=== PATIENT | female | born 1970 | race Two or more races ===

== ENCOUNTER → 2020-07-03 13:52 | Outpatient (BNVA) | payer MEDICAID, SELFPAY | PROVIDERS: PCP Internal Medicine Medical Oncology; Visit Provider Obstetrics & Gynecology ==

== ENCOUNTER 2020-09-30 12:10 | Emergency (ER) | payer OTHER, MEDICAID, SELFPAY ==
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
[2020-09-30 12:27] VITALS: BP 198/68; PULSE 87; RESP 18; TEMP 36.3; O2SAT 99; BMI 31.4
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
[2020-09-30] MEDS: Acetaminophen 325 MG TABLET 975 MG PO (14:15)
[2020-09-30] MEDS: Fluorescein Sodium STRIP 1 STRIP EYE-RIGHT (14:16)
[2020-09-30] MEDS: Tetracaine HCl/PF 0.5% Oph Sol 4 ML DROPS 1 DROP EYE-RIGHT (14:16)
[2020-09-30 14:57] VITALS: BP 107/56; PULSE 74; RESP 16; TEMP 36.4; O2SAT 100
== END 2020-09-30 15:44 | disposition home or self-care (01) ==
PROVIDERS: Emergency Provider Emergency Medicine; PCP Internal Medicine Medical Oncology
DX: S09.90XA Unspecified injury of head, initial encounter (principal); S16.1XXA Strain of muscle, fascia and tendon at neck level, initial encounter; S05.02XA Injury of conjunctiva and corneal abrasion without foreign body, left eye, initial encounter; V43.52XA Car driver injured in collision with other type car in traffic accident, initial encounter; F17.200 Nicotine dependence, unspecified, uncomplicated; Y93.89 Activity, other specified; Y92.414 Local residential or business street as the place of occurrence of the external cause; Y99.9 Unspecified external cause status
CPT/HCPCS: 70450; 72125; 73030; 99284

== ENCOUNTER 2020-12-15 15:06 | Outpatient (REF) | payer MEDICAID, SELFPAY ==
[2020-12-15 15:59] LABS: MANUAL DIFF FLAG NO
[2020-12-15 16:07] LABS: Basophils Percent Auto 0.5 % (0-2); Eosinophils Absolute Auto 0.3 X10*3/uL (0.0-0.4); Eosinophils Percent Auto 4.7 % (0-4); Hematocrit 35.4 % (37-47); Hemoglobin 11.5 g/dl (12.0-16.0); Imm Gran Abs Auto 0.07 X10*3/uL (0.00-0.03); Imm Gran Pct Auto 1.3 % (0.0-0.4); Lymphocytes Absolute Auto 2.2 X10*3/uL (1.2-4.9); Lymphocytes Percent Auto 40.4 % (20-40); Mean Corpuscular HGB Conc 32.5 g/dl (31.0-35.0); Mean Corpuscular Hemoglobin 32.7 pg (27.0-33.0); Mean Corpuscular Volume 100.6 fL (80-98); Mean Platelet Volume 10.4 fL (9.4-12.3); Monocytes Absolute Auto 0.4 X10*3/uL (0.1-1.2); Monocytes Percent Auto 7.6 % (2-11); Neutrophils Absolute Auto 2.5 X10*3/uL (2.0-8.3); Neutrophils Percent Auto 45.5 % (45-73); Platelet Count 190 X10*3/uL (160-400); Red Blood Count 3.52 X10*6/uL (4.20-5.50); Red Cell Distribution Width 14.1 % (11.0-16.0); White Blood Count 5.6 X10*3/uL (4.8-10.8)
[2020-12-15 16:25] LABS: Alanine Aminotransferase 7 U/L (0-31); Albumin Level 3.6 g/dL (3.5-5.0); Alkaline Phosphatase 116 U/L (39-117); Anion Gap 10 (12-20); Aspartate Amino Transferase 8 U/L (5-31); Bilirubin Total 0.3 mg/dL (0.0-1.0); Blood Urea Nitrogen 16 mg/dL (9-16); Calcium 8.8 mg/dL (8.4-10.2); Carbon Dioxide 27 mmol/L (22-29); Chloride 108 mmol/L (96-108); Cholesterol 168 mg/dL; Estimated Glomerular Filt Rate > 60; Glucose Random 118 mg/dL (60-115); HDL Cholesterol 34 mg/dL; Potassium 4.4 mmol/L (3.3-5.1); Sodium 141 mmol/L (135-145); Total Protein 6.1 g/dL (6.5-8.0); Triglycerides 500 mg/dL
== END 2020-12-15 15:07 | disposition home or self-care (01) ==
LOC: HO.LAB 15:06
PROVIDERS: PCP Internal Medicine Medical Oncology; Visit Provider Internal Medicine Medical Oncology
DX: G44.021 Chronic cluster headache, intractable (principal); K21.9 Gastro-esophageal reflux disease without esophagitis; M19.90 Unspecified osteoarthritis, unspecified site; G40.509 Epileptic seizures related to external causes, not intractable, without status epilepticus
CPT/HCPCS: 36415; 80053; 80061; 80185; 85025

== ENCOUNTER 2021-05-11 14:39 | Outpatient (REF) | payer MEDICAID, SELFPAY ==
--- NOTE | ~2021-05-11 | MM_ITS ---
EXAMINATION: MM SCREENING DIGITAL BREAST TOMOSYNTHESIS, BILATERAL CLINICAL INFORMATION: Screening. Asymptomatic. The lifetime risk of breast cancer based on the Tyrer-Cuzick Model is 7%. COMPARISON: Mammography: 02/08/2020, 02/02/2019, 01/26/2018, 01/14/2017 TECHNIQUE: Digital breast tomosynthesis is performed in both the craniocaudal and mediolateral oblique views along with computer-aided detection (CAD). Synthesized 2D images are generated from the tomosynthesis. FINDINGS: There are scattered areas of fibroglandular density (ACR BI-RADS breast composition Category b). There are no significant masses, abnormal calcifications, or other abnormalities. Parenchymal pattern is similar to prior studies. No developing density. There are grouped dermal calcifications again seen anterior upper outer right breast. The axilla and skin contours are unremarkable. MM/MM tomosynthesis screening BI IMPRESSION: No mammographic evidence of malignancy. ASSESSMENT: BI-RADS 2: Benign RECOMMENDATION: Routine annual mammography screening. This patient's information was entered into a reminder system with a target due date for their next mammogram.
== END 2021-05-11 14:40 | disposition home or self-care (01) ==
LOC: HO.MAMMO 14:39
PROVIDERS: Visit Provider Internal Medicine Medical Oncology
DX: Z12.31 Encounter for screening mammogram for malignant neoplasm of breast (principal)
CPT/HCPCS: 77063; 77067

== ENCOUNTER 2021-07-14 11:55 | Outpatient (REF) | payer MEDICAID, SELFPAY ==
[2021-07-14 12:21] LABS: MANUAL DIFF FLAG NO
[2021-07-14 12:59] LABS: Basophils Percent Auto 0.6 % (0-2); Eosinophils Absolute Auto 0.3 X10*3/uL (0.0-0.4); Eosinophils Percent Auto 5.5 % (0-4); Hematocrit 37.4 % (37.0-47.0); Hemoglobin 12.2 g/dl (12.0-16.0); Imm Gran Abs Auto 0.01 X10*3/uL (0.00-0.03); Imm Gran Pct Auto 0.2 % (0.0-0.4); Lymphocytes Absolute Auto 1.9 X10*3/uL (1.2-4.9); Lymphocytes Percent Auto 40.1 % (20-40); Mean Corpuscular HGB Conc 32.6 g/dl (31.0-35.0); Mean Corpuscular Hemoglobin 31.9 pg (27.0-33.0); Mean Corpuscular Volume 97.9 fL (80.0-98.0); Mean Platelet Volume 10.4 fL (9.4-12.3); Monocytes Absolute Auto 0.3 X10*3/uL (0.1-1.2); Monocytes Percent Auto 6.5 % (2-11); Neutrophils Absolute Auto 2.2 x10*3/uL (2.0-8.3); Neutrophils Percent Auto 47.1 % (45-73); Platelet Count 213 X10*3/uL (160-400); Red Blood Count 3.82 X10*6/uL (4.20-5.50); Red Cell Distribution Width 13.5 % (11.0-16.0); White Blood Count 4.8 X10*3/uL (4.8-10.8)
[2021-07-14 13:19] LABS: Alanine Aminotransferase 11 U/L (0-31); Alkaline Phosphatase 118 U/L (39-117); Anion Gap 11 (12-20); Aspartate Amino Transferase 9 U/L (5-31); Bilirubin Total 0.2 mg/dL (0.0-1.0); Blood Urea Nitrogen 19 mg/dL (9-16); Calcium 9.6 mg/dL (8.4-10.2); Carbon Dioxide 29 mmol/L (22-29); Chloride 107 mmol/L (96-108); Cholesterol 197 mg/dL; Estimated Glomerular Filt Rate > 60; Glucose Fasting 108 mg/dL (60-99); HDL Cholesterol 42 mg/dL; LDL Cholesterol Calculated 119 mg/dl; Potassium 4.9 mmol/L (3.3-5.1); Sodium 142 mmol/L (135-145); Total Protein 6.6 g/dL (6.5-8.0); Triglycerides 181 mg/dL
[2021-07-14 13:59] LABS: Phenytoin Dilantin 3.1 ug/mL (10.0-20.0)
== END 2021-07-14 11:56 | disposition home or self-care (01) ==
LOC: HO.LAB 11:55
PROVIDERS: Visit Provider Internal Medicine Medical Oncology
DX: E66.9 Obesity, unspecified (principal); G40.909 Epilepsy, unspecified, not intractable, without status epilepticus
CPT/HCPCS: 36415; 80053; 80061; 80185; 85025

== ENCOUNTER 2021-08-10 14:36 | Outpatient (REF) | payer MEDICAID, SELFPAY ==
--- NOTE | ~2021-08-10 | XR_ITS ---
EXAMINATION: XR LUMBOSACRAL SPINE CLINICAL INFORMATION: Low back pain COMPARISON: None TECHNIQUE: Three views of the lumbosacral spine. FINDINGS: There is normal lumbar lordosis. The vertebral heights, alignment and disc heights are normal. There is no visible acute fracture, dislocation or lytic process seen. The paravertebral soft tissues are normal. SI joints are normal. There is moderate stool in the colon. XR/XR lumbar spine 2-3V IMPRESSION: Unremarkable lumbar spine exam.
[2021-08-10 14:59] LABS: MANUAL DIFF FLAG NO
[2021-08-10 15:22] LABS: Basophils Percent Auto 0.2 % (0-2); Eosinophils Absolute Auto 0.3 X10*3/uL (0.0-0.4); Eosinophils Percent Auto 5.2 % (0-4); Hematocrit 35.3 % (37.0-47.0); Hemoglobin 11.4 g/dl (12.0-16.0); Imm Gran Abs Auto 0.02 X10*3/uL (0.00-0.03); Imm Gran Pct Auto 0.4 % (0.0-0.4); Lymphocytes Absolute Auto 1.8 X10*3/uL (1.2-4.9); Lymphocytes Percent Auto 33.3 % (20-40); Mean Corpuscular HGB Conc 32.3 g/dl (31.0-35.0); Mean Corpuscular Hemoglobin 31.8 pg (27.0-33.0); Mean Corpuscular Volume 98.6 fL (80.0-98.0); Mean Platelet Volume 10.1 fL (9.4-12.3); Monocytes Absolute Auto 0.4 X10*3/uL (0.1-1.2); Monocytes Percent Auto 7.6 % (2-11); Neutrophils Absolute Auto 2.9 x10*3/uL (2.0-8.3); Neutrophils Percent Auto 53.3 % (45-73); Platelet Count 208 X10*3/uL (160-400); Red Blood Count 3.58 X10*6/uL (4.20-5.50); Red Cell Distribution Width 13.8 % (11.0-16.0); White Blood Count 5.4 X10*3/uL (4.8-10.8)
[2021-08-10 16:01] LABS: Alanine Aminotransferase 10 U/L (0-31); Alkaline Phosphatase 119 U/L (39-117); Anion Gap 11 (12-20); Aspartate Amino Transferase 11 U/L (5-31); Bilirubin Total < 0.2 mg/dL (0.0-1.0); Blood Urea Nitrogen 19 mg/dL (9-16); Calcium 9.5 mg/dL (8.4-10.2); Carbon Dioxide 28 mmol/L (22-29); Chloride 110 mmol/L (96-108); Estimated Glomerular Filt Rate > 60; Glucose Random 123 mg/dL (60-115); Potassium 4.4 mmol/L (3.3-5.1); Sodium 145 mmol/L (135-145); Total Protein 6.7 g/dL (6.5-8.0)
[2021-08-10 16:28] LABS: Phenytoin Dilantin 3.1 ug/mL (10.0-20.0)
== END 2021-08-10 14:37 | disposition home or self-care (01) ==
LOC: HO.LAB 14:36
PROVIDERS: PCP Internal Medicine Medical Oncology; Visit Provider Internal Medicine Medical Oncology
DX: M54.9 Dorsalgia, unspecified (principal); E66.9 Obesity, unspecified; R78.89 Finding of other specified substances, not normally found in blood
CPT/HCPCS: 36415; 72100; 80053; 80185; 85025

== ENCOUNTER → 2021-08-26 13:29 | Outpatient (BNVA) | payer MEDICAID, SELFPAY | PROVIDERS: PCP Internal Medicine Medical Oncology; Visit Provider Obstetrics & Gynecology | DX: Z13.89 Encounter for screening for other disorder (principal) ==

== ENCOUNTER 2021-09-23 12:21 | Outpatient (REF) | payer MEDICAID, SELFPAY ==
--- NOTE | ~2021-09-23 | US_ITS ---
EXAMINATION: US PELVIS CLINICAL INFORMATION: Uterine hypertrophy; postmenopausal patient. COMPARISON: Pelvic ultrasound dated 04/29/2015. TECHNIQUE: Ultrasound of the pelvis is performed using both transabdominal and transvaginal transducers along with Doppler. Transvaginal imaging is performed due to inadequate visualization transabdominally. FINDINGS: Uterus: The uterus is anteverted and anteflexed. The uterus measures 8.9 x 4.1 x 6.0 cm. The double wall endometrial thickness is 1.9 mm. There is trace nonspecific free fluid within the endometrial canal. The uterus is smooth in contour and has normal myometrial echogenicity. No visible fibroid. Nabothian cysts are seen within the cervix. Adnexa: Both ovaries are visualized. There is normal color flow to the adnexa. There is no ovarian torsion. There is trace nonspecific free fluid in the cul-de-sac. Right ovary measures 2.1 x 1.5 x 1.6 cm (volume 2.5 mL). A 1.3 cm maximal diameter simple right ovarian cyst is incidentally noted. No ultrasound follow-up is recommended. A coarse parenchymal right ovarian calcification noted. Left ovary measures 3.2 x 1.5 x 1.7 cm (volume 6.1 mL). A 1.6 cm maximal diameter simple appearing left ovarian cyst is noted, with increased through sound transmission. A tiny parenchymal calcifications is noted. US/US pelvic and transvaginal IMPRESSION: 1. There is abnormal postmenopausal thickening of the endometrial canal. Recommend gynecology evaluation and management, consideration for tissue sampling, if clinically indicated. 2. There is trace nonspecific endometrial free fluid. 3. Nabothian cysts are seen within the cervix. 4. Small simple bilateral ovarian cysts are incidentally noted. No imaging follow-up is recommended. 5. Bilateral ovarian calcifications are noted, right greater than left. These can be associated with dermoid formation. Recommend Gynecology evaluation an management. These can be further evaluated with pelvic MRI, if clinically indicated. 6. There is trace nonspecific free fluid within the cul-de-sac.
== END 2021-09-23 12:22 | disposition home or self-care (01) ==
LOC: HO.US 12:21
PROVIDERS: Visit Provider Obstetrics & Gynecology
DX: N85.2 Hypertrophy of uterus (principal)
CPT/HCPCS: 76830; 76856

== ENCOUNTER → 2021-10-07 10:54 | Outpatient (BNVA) | payer MEDICAID, SELFPAY | PROVIDERS: Visit Provider Obstetrics & Gynecology | DX: R93.89 Abnormal findings on diagnostic imaging of other specified body structures (principal); N83.8 Other noninflammatory disorders of ovary, fallopian tube and broad ligament | CPT/HCPCS: 99212 ==

== ENCOUNTER 2021-10-30 10:31 | Outpatient (REF) | payer MEDICAID, SELFPAY ==
[2021-10-30 10:42] LABS: MANUAL DIFF FLAG NO
[2021-10-30 11:17] LABS: Basophils Percent Auto 0.4 % (0-2); Eosinophils Absolute Auto 0.2 X10*3/uL (0.0-0.4); Eosinophils Percent Auto 4.3 % (0-4); Hematocrit 35.8 % (37.0-47.0); Hemoglobin 11.8 g/dl (12.0-16.0); Imm Gran Abs Auto 0.02 X10*3/uL (0.00-0.03); Imm Gran Pct Auto 0.4 % (0.0-0.4); Lymphocytes Absolute Auto 1.8 X10*3/uL (1.2-4.9); Lymphocytes Percent Auto 34.6 % (20-40); Mean Corpuscular Hemoglobin 31.9 pg (27.0-33.0); Mean Corpuscular Volume 96.8 fL (80.0-98.0); Mean Platelet Volume 9.8 fL (9.4-12.3); Monocytes Absolute Auto 0.3 X10*3/uL (0.1-1.2); Monocytes Percent Auto 6.2 % (2-11); Neutrophils Absolute Auto 2.8 x10*3/uL (2.0-8.3); Neutrophils Percent Auto 54.1 % (45-73); Platelet Count 216 X10*3/uL (160-400); White Blood Count 5.2 X10*3/uL (4.8-10.8)
[2021-10-30 11:54] LABS: Phenytoin Dilantin 10.3 ug/mL (10.0-20.0)
[2021-10-30 12:22] LABS: Alanine Aminotransferase 11 U/L (0-31); Albumin Level 3.8 g/dL (3.5-5.0); Alkaline Phosphatase 130 U/L (39-117); Anion Gap 14 (12-20); Aspartate Amino Transferase 11 U/L (5-31); Bilirubin Total 0.3 mg/dL (0.0-1.0); Blood Urea Nitrogen 16 mg/dL (9-16); Calcium 9.4 mg/dL (8.4-10.2); Carbon Dioxide 25 mmol/L (22-29); Chloride 108 mmol/L (96-108); Estimated Glomerular Filt Rate > 60; Glucose Random 119 mg/dL (60-115); Potassium 4.6 mmol/L (3.3-5.1); Sodium 142 mmol/L (135-145); Total Protein 6.4 g/dL (6.5-8.0)
== END 2021-10-30 10:32 | disposition home or self-care (01) ==
LOC: HO.LAB 10:31
PROVIDERS: PCP Internal Medicine Medical Oncology; Visit Provider Internal Medicine Medical Oncology
DX: M19.90 Unspecified osteoarthritis, unspecified site (principal); E66.3 Overweight; G40.509 Epileptic seizures related to external causes, not intractable, without status epilepticus; R78.89 Finding of other specified substances, not normally found in blood
CPT/HCPCS: 36415; 80053; 80185; 85025

== ENCOUNTER 2021-11-09 12:36 | Outpatient (REF) | payer MEDICAID, SELFPAY ==
--- NOTE | ~2021-11-09 | CT_ITS ---
EXAMINATION: CT PELVIS WITH CONTRAST CLINICAL INFORMATION: Pain. COMPARISON: Ultrasound pelvis 09/24/2021. TECHNIQUE: Helical scanning was performed with submillimeter collimation through the pelvis with the use of oral contrast and during bolus intravenous injection of 100 mL of Omnipaque 350 intravenous contrast. Sagittal and coronal multiplanar 2-D reconstructions were obtained. This CT examination was performed using dose optimization techniques as appropriate, variously including the following: *Automated exposure control *Adjustment of mA and/or kV according to patient size (this includes techniques or standardized protocols for targeted exams where dose is matched to indication/reason for exam; i.e. extremities or head) *Use of iterative reconstruction technique DLP: 755 mGy-cm FINDINGS: PELVIS: There is a oral contrast opacified colon and the small bowel loops which are normal caliber. Minimal scattered stool is seen in the rectum and the sigmoid colon. The uterus is anteverted and appears unremarkable. There are scattered phleboliths in pelvis. No pelvic mass or free fluid seen on this exam. No abnormal pelvic or inguinal lymph nodes seen. OSSEOUS STRUCTURES: No lytic or sclerotic process seen. CT/CT pelvis w con IMPRESSION: Unremarkable CT pelvis with oral contrast.
== END 2021-11-09 12:37 | disposition home or self-care (01) ==
LOC: HO.CT 12:36
PROVIDERS: Visit Provider Obstetrics & Gynecology
DX: N83.8 Other noninflammatory disorders of ovary, fallopian tube and broad ligament (principal)
CPT/HCPCS: 72193; Q9967

== ENCOUNTER → 2021-12-14 14:39 | Outpatient (BNVA) | payer MEDICAID, SELFPAY | PROVIDERS: PCP Internal Medicine Medical Oncology; Visit Provider Obstetrics & Gynecology | DX: N83.8 Other noninflammatory disorders of ovary, fallopian tube and broad ligament (principal) | CPT/HCPCS: 99212 ==

== ENCOUNTER 2022-05-05 13:35 | Outpatient (REF) | payer MEDICAID, SELFPAY ==
[2022-05-05 13:55] LABS: MANUAL DIFF FLAG NO
[2022-05-05 15:04] LABS: Basophils Percent Auto 0.6 % (0-2); Eosinophils Absolute Auto 0.2 X10*3/uL (0.0-0.4); Eosinophils Percent Auto 4.9 % (0-4); Hematocrit 34.5 % (37.0-47.0); Hemoglobin 11.1 g/dl (12.0-16.0); Imm Gran Abs Auto 0.03 X10*3/uL (0.00-0.03); Imm Gran Pct Auto 0.6 % (0.0-0.4); Lymphocytes Absolute Auto 1.9 X10*3/uL (1.2-4.9); Lymphocytes Percent Auto 39.4 % (20-40); Mean Corpuscular HGB Conc 32.2 g/dl (31.0-35.0); Mean Corpuscular Hemoglobin 31.4 pg (27.0-33.0); Mean Corpuscular Volume 97.5 fL (80.0-98.0); Mean Platelet Volume 10.6 fL (9.4-12.3); Monocytes Absolute Auto 0.3 X10*3/uL (0.1-1.2); Monocytes Percent Auto 6.3 % (2-11); Neutrophils Absolute Auto 2.4 x10*3/uL (2.0-8.3); Neutrophils Percent Auto 48.2 % (45-73); Platelet Count 198 X10*3/uL (160-400); Red Blood Count 3.54 X10*6/uL (4.20-5.50); Red Cell Distribution Width 13.6 % (11.0-16.0); White Blood Count 4.9 X10*3/uL (4.8-10.8)
[2022-05-05 15:39] LABS: Alanine Aminotransferase 9 U/L (0-31); Albumin Level 3.9 g/dL (3.5-5.0); Alkaline Phosphatase 128 U/L (39-117); Anion Gap 11 (12-20); Aspartate Amino Transferase 9 U/L (5-31); Bilirubin Total 0.2 mg/dL (0.0-1.0); Blood Urea Nitrogen 18 mg/dL (9-16); Calcium 9.2 mg/dL (8.4-10.2); Carbon Dioxide 28 mmol/L (22-29); Chloride 109 mmol/L (96-108); Cholesterol 209 mg/dL; Estimated Glomerular Filt Rate > 60; Glucose Fasting 97 mg/dL (60-99); HDL Cholesterol 38 mg/dL; LDL Cholesterol Calculated 128 mg/dl; Potassium 4.5 mmol/L (3.3-5.1); Sodium 143 mmol/L (135-145); Total Protein 6.3 g/dL (6.5-8.0); Triglycerides 216 mg/dL
== END 2022-05-05 13:36 | disposition home or self-care (01) ==
LOC: HO.LAB 13:35
PROVIDERS: PCP Internal Medicine Medical Oncology; Visit Provider Internal Medicine Medical Oncology
DX: G40.909 Epilepsy, unspecified, not intractable, without status epilepticus (principal); E66.9 Obesity, unspecified
CPT/HCPCS: 36415; 80053; 80061; 80185; 85025

== ENCOUNTER 2022-05-19 12:39 | Outpatient (REF) | payer MEDICAID, SELFPAY | END 2022-05-19 12:40 | disposition home or self-care (01) | LOC: HO.MAMMO 12:39 | PROVIDERS: PCP Internal Medicine Medical Oncology; Visit Provider Internal Medicine Medical Oncology | DX: Z12.31 Encounter for screening mammogram for malignant neoplasm of breast (principal) | CPT/HCPCS: 77063; 77067 ==

== ENCOUNTER 2022-07-28 14:04 | Outpatient (REF) | payer MEDICAID, SELFPAY ==
[2022-07-28 14:17] LABS: MANUAL DIFF FLAG NO
[2022-07-28 14:58] LABS: Basophils Percent Auto 0.4 % (0-2); Eosinophils Absolute Auto 0.3 X10*3/uL (0.0-0.4); Eosinophils Percent Auto 6.2 % (0-4); Hematocrit 33.3 % (37.0-47.0); Imm Gran Abs Auto 0.05 X10*3/uL (0.00-0.03); Lymphocytes Absolute Auto 1.9 X10*3/uL (1.2-4.9); Mean Corpuscular Hemoglobin 31.7 pg (27.0-33.0); Mean Platelet Volume 9.8 fL (9.4-12.3); Monocytes Absolute Auto 0.4 X10*3/uL (0.1-1.2); Monocytes Percent Auto 7.5 % (2-11); Neutrophils Absolute Auto 2.6 x10*3/uL (2.0-8.3); Neutrophils Percent Auto 48.9 % (45-73); Platelet Count 216 X10*3/uL (160-400); Red Blood Count 3.47 X10*6/uL (4.20-5.50); Red Cell Distribution Width 13.1 % (11.0-16.0); White Blood Count 5.2 X10*3/uL (4.8-10.8)
[2022-07-28 16:30] LABS: Alanine Aminotransferase 12 U/L (0-31); Albumin Level 3.9 g/dL (3.5-5.0); Alkaline Phosphatase 144 U/L (39-117); Anion Gap 10 (12-20); Aspartate Amino Transferase 11 U/L (5-31); Bilirubin Total 0.2 mg/dL (0.0-1.0); Blood Urea Nitrogen 13 mg/dL (9-16); Calcium 9.2 mg/dL (8.4-10.2); Carbon Dioxide 31 mmol/L (22-29); Chloride 108 mmol/L (96-108); Estimated Glomerular Filt Rate > 60; Glucose Random 113 mg/dL (60-115); Potassium 4.3 mmol/L (3.3-5.1); Sodium 145 mmol/L (135-145); Total Protein 6.8 g/dL (6.5-8.0)
[2022-07-28 16:54] LABS: Vitamin B12 546 pg/mL (200-900)
[2022-07-28 19:27] LABS: Valproate 22.3 mcg/mL (50.0-100.0)
[2022-07-28 19:42] LABS: Phenytoin Dilantin 4.5 ug/mL (10.0-20.0)
== END 2022-07-28 14:05 | disposition home or self-care (01) ==
LOC: HO.LAB 14:04
PROVIDERS: PCP Internal Medicine Medical Oncology; Visit Provider Internal Medicine Medical Oncology
DX: G40.909 Epilepsy, unspecified, not intractable, without status epilepticus (principal); R79.89 Other specified abnormal findings of blood chemistry; E66.9 Obesity, unspecified; Z79.899 Other long term (current) drug therapy
CPT/HCPCS: 36415; 80053; 80164; 80185; 82607; 85025

== ENCOUNTER 2022-09-15 14:20 | Outpatient (REF) | payer MEDICAID, SELFPAY ==
[2022-09-15 14:39] LABS: MANUAL DIFF FLAG NO
[2022-09-15 15:30] LABS: Basophils Percent Auto 0.6 % (0-2); Eosinophils Absolute Auto 0.2 X10*3/uL (0.0-0.4); Eosinophils Percent Auto 4.6 % (0-4); Hematocrit 35.7 % (37.0-47.0); Hemoglobin 11.9 g/dl (12.0-16.0); Imm Gran Abs Auto 0.02 X10*3/uL (0.00-0.03); Imm Gran Pct Auto 0.4 % (0.0-0.4); Lymphocytes Absolute Auto 2.2 X10*3/uL (1.2-4.9); Mean Corpuscular HGB Conc 33.3 g/dl (31.0-35.0); Mean Corpuscular Hemoglobin 31.6 pg (27.0-33.0); Mean Corpuscular Volume 94.9 fL (80.0-98.0); Mean Platelet Volume 10.3 fL (9.4-12.3); Monocytes Absolute Auto 0.4 X10*3/uL (0.1-1.2); Monocytes Percent Auto 7.2 % (2-11); Neutrophils Absolute Auto 2.3 x10*3/uL (2.0-8.3); Neutrophils Percent Auto 45.2 % (45-73); Platelet Count 201 X10*3/uL (160-400); Red Blood Count 3.76 X10*6/uL (4.20-5.50); Red Cell Distribution Width 13.6 % (11.0-16.0); White Blood Count 5.2 X10*3/uL (4.8-10.8)
[2022-09-15 18:24] LABS: Phenytoin Dilantin 5.8 ug/mL (10.0-20.0)
== END 2022-09-15 14:21 | disposition home or self-care (01) ==
LOC: HO.LAB 14:20
PROVIDERS: PCP Internal Medicine Medical Oncology; Visit Provider Internal Medicine Medical Oncology
DX: G40.909 Epilepsy, unspecified, not intractable, without status epilepticus (principal); R78.89 Finding of other specified substances, not normally found in blood
CPT/HCPCS: 36415; 80185; 85025

== ENCOUNTER → 2022-09-28 13:26 | Outpatient (BNVA) | payer MEDICAID, SELFPAY | PROVIDERS: PCP Internal Medicine Medical Oncology; Visit Provider Obstetrics & Gynecology ==

== ENCOUNTER 2022-10-12 09:48 | Outpatient (REF) | payer MEDICAID, SELFPAY ==
[2022-10-12 11:02] LABS: Phenytoin Dilantin 5.4 ug/mL (10.0-20.0)
== END 2022-10-12 09:49 | disposition home or self-care (01) ==
LOC: HO.LAB 09:48
PROVIDERS: PCP Internal Medicine Medical Oncology; Visit Provider Internal Medicine Medical Oncology
DX: G40.909 Epilepsy, unspecified, not intractable, without status epilepticus (principal); Z79.899 Other long term (current) drug therapy
CPT/HCPCS: 36415; 80185

== ENCOUNTER 2022-11-25 11:08 | Outpatient (REF) | payer MEDICAID, SELFPAY ==
[2022-11-25 13:10] LABS: Phenytoin Dilantin 7.4 ug/mL (10.0-20.0)
== END 2022-11-25 11:09 | disposition home or self-care (01) ==
LOC: HO.LAB 11:08
PROVIDERS: PCP Internal Medicine Medical Oncology; Visit Provider Internal Medicine Medical Oncology
DX: R79.89 Other specified abnormal findings of blood chemistry (principal)
CPT/HCPCS: 36415; 80185

== ENCOUNTER 2023-02-21 12:06 | Outpatient (REF) | payer MEDICAID, SELFPAY ==
[2023-02-21 12:33] LABS: MANUAL DIFF FLAG NO
[2023-02-21 13:20] LABS: Basophils Percent Auto 0.4 % (0-2); Eosinophils Absolute Auto 0.2 X10*3/uL (0.0-0.4); Eosinophils Percent Auto 4.2 % (0-4); Hematocrit 37.7 % (37.0-47.0); Hemoglobin 12.4 g/dl (12.0-16.0); Imm Gran Abs Auto 0.02 X10*3/uL (0.00-0.03); Imm Gran Pct Auto 0.4 % (0.0-0.4); Lymphocytes Absolute Auto 1.8 X10*3/uL (1.2-4.9); Lymphocytes Percent Auto 38.4 % (20-40); Mean Corpuscular HGB Conc 32.9 g/dl (31.0-35.0); Mean Corpuscular Hemoglobin 31.7 pg (27.0-33.0); Mean Corpuscular Volume 96.4 fL (80.0-98.0); Mean Platelet Volume 9.8 fL (9.4-12.3); Monocytes Absolute Auto 0.3 X10*3/uL (0.1-1.2); Monocytes Percent Auto 5.7 % (2-11); Neutrophils Absolute Auto 2.4 x10*3/uL (2.0-8.3); Neutrophils Percent Auto 50.9 % (45-73); Platelet Count 210 X10*3/uL (160-400); Red Blood Count 3.91 X10*6/uL (4.20-5.50); Red Cell Distribution Width 13.3 % (11.0-16.0); White Blood Count 4.7 X10*3/uL (4.8-10.8)
[2023-02-21 14:02] LABS: Alanine Aminotransferase 9 U/L (0-31); Alkaline Phosphatase 149 U/L (39-117); Anion Gap 12 (12-20); Aspartate Amino Transferase 9 U/L (5-31); Bilirubin Total 0.3 mg/dL (0.0-1.0); Blood Urea Nitrogen 10 mg/dL (9-16); Calcium 9.3 mg/dL (8.4-10.2); Carbon Dioxide 25 mmol/L (22-29); Chloride 108 mmol/L (96-108); Cholesterol 214 mg/dL (<200); Estimated Glomerular Filt Rate > 60; Glucose Fasting 112 mg/dL (60-99); HDL Cholesterol 38 mg/dL (>40); LDL Cholesterol Calculated 119 mg/dL (<100); Potassium 3.9 mmol/L (3.3-5.1); Sodium 141 mmol/L (135-145); Total Protein 6.9 g/dL (6.5-8.0); Triglycerides 288 mg/dL (<150)
[2023-02-21 14:28] LABS: Phenytoin Dilantin 5.3 ug/mL (10.0-20.0)
== END 2023-02-21 12:07 | disposition home or self-care (01) ==
LOC: HO.LAB 12:06
PROVIDERS: PCP Internal Medicine Medical Oncology; Visit Provider Internal Medicine Medical Oncology
DX: G40.909 Epilepsy, unspecified, not intractable, without status epilepticus (principal)
CPT/HCPCS: 36415; 80053; 80061; 80185; 85025

== ENCOUNTER 2023-04-28 13:04 | Outpatient (REF) | payer MEDICAID, SELFPAY ==
[2023-04-28 13:16] LABS: MANUAL DIFF FLAG NO
[2023-04-28 14:18] LABS: Basophils Percent Auto 0.4 % (0-2); Eosinophils Absolute Auto 0.1 X10*3/uL (0.0-0.4); Eosinophils Percent Auto 2.4 % (0-4); Hemoglobin 11.9 g/dl (12.0-16.0); Imm Gran Abs Auto 0.04 X10*3/uL (0.00-0.03); Imm Gran Pct Auto 0.7 % (0.0-0.4); Lymphocytes Absolute Auto 1.9 X10*3/uL (1.2-4.9); Lymphocytes Percent Auto 34.8 % (20-40); Mean Corpuscular HGB Conc 32.2 g/dl (31.0-35.0); Mean Corpuscular Hemoglobin 31.8 pg (27.0-33.0); Mean Corpuscular Volume 98.9 fL (80.0-98.0); Mean Platelet Volume 10.4 fL (9.4-12.3); Monocytes Absolute Auto 0.4 X10*3/uL (0.1-1.2); Monocytes Percent Auto 7.3 % (2-11); Neutrophils Absolute Auto 2.9 x10*3/uL (2.0-8.3); Neutrophils Percent Auto 54.4 % (45-73); Platelet Count 196 X10*3/uL (160-400); Red Blood Count 3.74 X10*6/uL (4.20-5.50); Red Cell Distribution Width 13.9 % (11.0-16.0); White Blood Count 5.4 X10*3/uL (4.8-10.8)
[2023-04-28 14:57] LABS: Phenytoin Dilantin 19.5 ug/mL (10.0-20.0)
[2023-04-28 15:13] LABS: Alanine Aminotransferase 10 U/L (0-31); Alkaline Phosphatase 131 U/L (39-117); Anion Gap 12 (12-20); Aspartate Amino Transferase 10 U/L (5-31); Bilirubin Total 0.2 mg/dL (0.0-1.0); Blood Urea Nitrogen 11 mg/dL (9-16); Calcium 9.3 mg/dL (8.4-10.2); Carbon Dioxide 30 mmol/L (22-29); Chloride 104 mmol/L (96-108); Cholesterol 193 mg/dL (<200); Estimated Glomerular Filt Rate > 60; Glucose Fasting 125 mg/dL (60-99); HDL Cholesterol 42 mg/dL (>40); LDL Cholesterol Calculated 101 mg/dL (<100); Potassium 4.2 mmol/L (3.3-5.1); Sodium 142 mmol/L (135-145); Triglycerides 251 mg/dL (<150)
== END 2023-04-28 13:05 | disposition home or self-care (01) ==
LOC: HO.LAB 13:04
PROVIDERS: PCP Internal Medicine Medical Oncology; Visit Provider Internal Medicine Medical Oncology
DX: G40.909 Epilepsy, unspecified, not intractable, without status epilepticus (principal); E66.9 Obesity, unspecified
CPT/HCPCS: 36415; 80053; 80061; 80185; 85025

== ENCOUNTER 2023-05-25 12:45 | Outpatient (REF) | payer MEDICAID, SELFPAY ==
--- NOTE | ~2023-05-25 | MM_ITS ---
EXAMINATION: MM SCREENING DIGITAL BREAST TOMOSYNTHESIS, BILATERAL CLINICAL INFORMATION: Screening. Asymptomatic. COMPARISON: Mammography: This study is compared with prior exams dating back to 2017. TECHNIQUE: Digital breast tomosynthesis is performed in both the craniocaudal and mediolateral oblique views along with computer-aided detection (CAD). Synthesized 2D images are generated from the tomosynthesis. FINDINGS: There are scattered areas of fibroglandular density (ACR BI-RADS breast composition Category b). There are grouped calcifications in the upper inner quadrant of the left breast. Additional mammographic imaging with magnification this finding is advised. In the right breast, there are are no significant masses, abnormal calcifications, or other abnormalities. MM/MM tomosynthesis screening BI IMPRESSION: Calcifications of the left breast warrant additional mammographic imaging magnification. No mammographic signs of malignancy right breast. ASSESSMENT: BI-RADS BI-RADS 0 - Incomplete: Needs additional Imaging. RECOMMENDATION: Additional views of the left breast Radiology department staff will contact the patient for additional imaging. Additional Imaging required This examination should not preclude the clinical evaluation of a suspicious palpable abnormality. This patient's information was entered into a reminder system with a target due date for their next mammogram.
== END 2023-05-25 12:46 | disposition home or self-care (01) ==
LOC: HO.MAMMO 12:45
PROVIDERS: PCP Internal Medicine Medical Oncology; Visit Provider Internal Medicine Medical Oncology
DX: Z12.31 Encounter for screening mammogram for malignant neoplasm of breast (principal)
CPT/HCPCS: 77063; 77067

== ENCOUNTER → 2023-05-25 13:15 | Outpatient (BNV) | payer MEDICAID, SELFPAY | PROVIDERS: PCP Internal Medicine Medical Oncology; Visit Provider Radiology Diagnostic Radiology | DX: Z12.31 Encounter for screening mammogram for malignant neoplasm of breast (principal) | CPT/HCPCS: 77063; 77067 ==

== ENCOUNTER 2023-07-01 13:02 | Outpatient (REF) | payer MEDICAID, SELFPAY ==
--- NOTE | ~2023-07-01 | MM_ITS ---
EXAMINATION: MM DIAGNOSTIC DIGITAL BREAST TOMOSYNTHESIS, LEFT CLINICAL INFORMATION: Additional views for grouped linear calcifications left breast upper inner quadrant. COMPARISON: Mammography: 05/25/2023, 05/19/2022, 05/11/2021, 02/08/2020, 02/02/2019, and dating back to 2017. TECHNIQUE: Digital breast tomosynthesis is performed the following views: Full-field left digital 3-D mediolateral view, and 2-D spot magnification left CC and ML views. FINDINGS: There are scattered areas of fibroglandular density (ACR BI-RADS breast composition Category b). There are 4 rounded calcifications linearly grouped in the upper inner quadrant of the left breast, which on tomographic imaging localize to the skin. These are benign. No further follow-up recommended. No suspicious findings left breast. MM/MM tomosynthesis diagnostic LT IMPRESSION: No findings suspicious for malignancy left breast. Calcifications arranged in a linear configuration localize to the skin on tomographic images, and are benign. No further follow-up recommended. Recommend the patient return to routine annual screening. ASSESSMENT: BI-RADS BI-RADS 2 - Benign Findings RECOMMENDATION: 1 year F/U Results were provided to the patient at time of visit by the technologist. This patient's information was entered into a reminder system with a target due date for their next mammogram.
== END 2023-07-01 13:03 | disposition home or self-care (01) ==
LOC: HO.MAMMO 13:02
PROVIDERS: PCP Internal Medicine Medical Oncology; Visit Provider Internal Medicine Medical Oncology
DX: R92.1 Mammographic calcification found on diagnostic imaging of breast (principal)
CPT/HCPCS: 77061; 77065

== ENCOUNTER → 2023-07-01 13:30 | Outpatient (BNV) | payer MEDICAID, SELFPAY | PROVIDERS: PCP Internal Medicine Medical Oncology; Visit Provider Radiology Diagnostic Radiology | DX: R92.1 Mammographic calcification found on diagnostic imaging of breast (principal) | CPT/HCPCS: 77061; 77065 ==

== ENCOUNTER 2024-01-03 09:49 | Outpatient (REF) | payer MEDICAID, SELFPAY ==
[2024-01-03 10:26] LABS: MANUAL DIFF FLAG NO
[2024-01-03 10:31] LABS: Basophils Percent Auto 0.5 % (0-2); Eosinophils Absolute Auto 0.2 X10*3/uL (0.0-0.4); Eosinophils Percent Auto 3.4 % (0-4); Hematocrit 35.8 % (37.0-47.0); Hemoglobin 11.7 g/dl (12.0-16.0); Imm Gran Abs Auto 0.02 X10*3/uL (0.00-0.03); Imm Gran Pct Auto 0.5 % (0.0-0.4); Lymphocytes Absolute Auto 1.7 X10*3/uL (1.2-4.9); Mean Corpuscular HGB Conc 32.7 g/dl (31.0-35.0); Mean Corpuscular Hemoglobin 32.1 pg (27.0-33.0); Mean Corpuscular Volume 98.4 fL (80.0-98.0); Monocytes Absolute Auto 0.3 X10*3/uL (0.1-1.2); Monocytes Percent Auto 6.4 % (2-11); Neutrophils Absolute Auto 2.2 x10*3/uL (2.0-8.3); Neutrophils Percent Auto 50.2 % (45-73); Platelet Count 163 X10*3/uL (160-400); Red Blood Count 3.64 X10*6/uL (4.20-5.50); Red Cell Distribution Width 14.4 % (11.0-16.0); White Blood Count 4.4 X10*3/uL (4.8-10.8)
[2024-01-03 10:59] LABS: Alanine Aminotransferase 10 U/L (0-31); Albumin Level 3.8 g/dL (3.5-5.0); Alkaline Phosphatase 103 U/L (39-117); Anion Gap 14 (12-20); Aspartate Amino Transferase 10 U/L (5-31); Bilirubin Total 0.3 mg/dL (0.0-1.0); Blood Urea Nitrogen 9 mg/dL (9-16); Calcium 9.1 mg/dL (8.4-10.2); Carbon Dioxide 30 mmol/L (22-29); Chloride 103 mmol/L (96-108); Estimated Glomerular Filt Rate > 60; Glucose Random 112 mg/dL (60-115); Potassium 4.2 mmol/L (3.3-5.1); Sodium 143 mmol/L (135-145); Total Protein 6.5 g/dL (6.5-8.0)
[2024-01-03 11:25] LABS: Phenytoin Dilantin 24.3 ug/mL (10.0-20.0); Valproate 91.2 mcg/mL (50.0-100.0)
== END 2024-01-03 09:50 | disposition home or self-care (01) ==
LOC: HO.10HDL 09:49
PROVIDERS: Visit Provider Internal Medicine Medical Oncology
DX: G40.909 Epilepsy, unspecified, not intractable, without status epilepticus (principal); K92.1 Melena; G47.30 Sleep apnea, unspecified
CPT/HCPCS: 36415; 80053; 80164; 80185; 85025

== ENCOUNTER 2024-02-16 12:46 | Outpatient (REF) | payer MEDICAID, SELFPAY ==
[2024-02-20 16:48] LABS: HPV mRNA E6/E7 Not Detected (Not Detected)
== END 2024-02-16 12:47 | disposition home or self-care (01) ==
LOC: HO.LNP 12:46
PROVIDERS: PCP Internal Medicine Medical Oncology; Visit Provider Obstetrics & Gynecology
DX: Z01.419 Encounter for gynecological examination (general) (routine) without abnormal findings (principal)
CPT/HCPCS: 87624; 88175; 99396

== ENCOUNTER 2024-02-16 12:46 | Outpatient (AMB) | payer MEDICAID, SELFPAY ==
--- NOTE | 2024-02-16 12:54 | MHC.OFFVIS ---
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 No complaints. Last Pap/HPV was negative in 06/17 Last Mammogram was BI-RADS 2 in 07/23 Last Colonoscopy was 2 years ago, the recommendation according to the patient was to repeat in 10 years, report is unavailable [facility] Medical History Severe headache Depression Sleep apnea Arthritis GERD (gastroesophageal reflux disease) Seizures Anxiety Surgical History History of tubal ligation Social History Alcohol intake: never Patient Tobacco Use Status: Current everyday Tobacco user Cigarettes Per Day: 8 Sexual orientation: Straight/Heterosexual Gender identity: Female Female Reproductive History Menstrual Age of Menarche: 9 control method: permanent sterilization Total pregnancies: 6 Full term: 4 Number of Living Children: 4 Ab spontaneous: 2 Date of last pap smear: 06/16/18 Date of Mammogram: 07/01/23 Review of Systems Const All systems reviewed & are unremarkable except as noted in HPI and below Card Reports as per HPI Resp Reports as per HPI GI Reports as per HPI and Reports no additional complaints Reports as per HPI Physical Exam Vital Signs: Last Vital Signs BP 126/80 02/16/24 13:00 BMI result Body Mass Index 33.8 Const General: cooperative, healthy appearing and comfortable Chest Chest palpation & inspection: normal inspection of the chest and normal palpation of entire chest wall Breast/axilla inspection: normal inspection of the breasts and normal inspection of the axillae Breast/axilla palpation: normal palpation of the breasts, normal palpation of the axillae and no axillary lymphadenopathy Resp Effort & Inspection: normal respiratory effort Auscultation: clear to auscultation bilaterally Percussion: percussion normal Cardio Palpation: normal PMI Rate: regular rate Rhythm: regular rhythm Heart sounds: no murmurs and no rubs Peripheral pulses: Peripheral pulses 2+ throughout GI Inspection: Yes normal to inspection Palpation (GI): Soft to palpation, nontender, no guarding, not rigid and No hepatosplenomegaly present Percussion: Yes normal to percussion Auscultation: normal bowel sounds Rectal Exam - Female: deferred General: Yes bladder normal to palpation External Female Exam: No lesion Speculum Exam - Vagina: normal appearance of the vagina, normal palpation, normal vaginal discharge and not erythematous Speculum Exam - Cervix: normal appearance of the cervix and normal palpation Bimanual exam- vagina & uterus: normal bimanual exam, normal palpation, uterine size normal, bladder normal to palpation, consistency normal and normal palpation Bimanual Exam- Adnexa, other: normal adnexae, no masses and no tenderness Assessment & Plan Assessment & Plan (1) Well woman exam: Code(s): Z01.419 - Encounter for gynecological examination (general) (routine) without abnormal findings Category: Medical Plan: Co testing done. Counseled the patient about the recommended dietary allowance of 1200 mg of Calcium & 600 IU of vitamin D. Instructions given the patient to schedule next screening Mammogram in 07/24. The patient was instructed to perform monthly self-breast exams and schedule annual exam in a year. All questions answered and the patient verbalized understanding. Coding Level of Care Code New Pt Prev Care 40-64y(35505) Diagnoses Well woman exam Z01.419
[2024-02-16 13:00] VITALS: BP 126/80; BMI 33.8
== END 2024-02-16 13:17 | disposition home or self-care (01) ==
LOC: HO.HWS 12:46
PROVIDERS: PCP Internal Medicine Medical Oncology; Visit Provider Obstetrics & Gynecology
DX: Z01.419 Encounter for gynecological examination (general) (routine) without abnormal findings (principal)
CPT/HCPCS: 99396

== ENCOUNTER 2024-02-27 09:45 | Outpatient (REF) | payer MEDICAID, SELFPAY | END 2024-02-27 09:46 | disposition home or self-care (01) | LOC: HO.LNP 09:45 | PROVIDERS: PCP Internal Medicine Medical Oncology; Visit Provider Obstetrics & Gynecology | DX: R87.619 Unspecified abnormal cytological findings in specimens from cervix uteri (principal) | CPT/HCPCS: 58100; 88305 ==

== ENCOUNTER 2024-02-27 09:45 | Outpatient (AMB) | payer MEDICAID, SELFPAY ==
[2024-02-27 09:56] VITALS: BMI 33.7
--- NOTE | 2024-02-27 09:56 | A.OFFVIS_ITS ---
Vital Signs 02/27/24 09:56 Height 5 ft 5 in Weight 202 lb 13.204 oz BMI 33.7 Intake Visit Reasons: EMB Traffic Court Magistrate Required: Yes Traffic Court Magistrate Language: Padding Machine Operator Services: Traffic Court Magistrate Present (in person) Traffic Court Magistrate Name: Chiquis GRACE Information Interpreted: non-clinical & clinical Concrete Journeyman: Concrete Journeyman Present (Chiquis GRACE) Accompanied by: Self / Same As Patient Allergies No Known Allergies Allergy (Verified 02/27/24 09:59) Post menopausal: Yes HPI Comments Details: Presenting for EMB. Co testing was negative/HPV negative, normal endometrial cells present [facility] Medical History Severe headache Depression Sleep apnea Arthritis GERD (gastroesophageal reflux disease) Seizures Anxiety Surgical History History of tubal ligation Social History Alcohol intake: never Patient Tobacco Use Status: Current everyday Tobacco user Cigarettes Per Day: 8 Sexual orientation: Straight/Heterosexual Gender identity: Female Female Reproductive History Menstrual Age of Menarche: 9 Physical Exam Vital Signs: BMI result Body Mass Index 33.7 Office Procedures Endometrial Biopsy Details: The patient was counseled regarding the indication and benefits of endometrial sampling to rule out endometrial pathology including not limited to endometrial hyperplasia or endometrial cancer and others; The alternatives (Either do nothing vs. hysteroscopy D&C) & the risks were discussed with the patient including but not limited: pain, uterine perforation, bleeding, infection, possible injury to bladder, bowel, ureter, possible need for blood transfusion with all its possible risks. The patient verbalized understanding all questions answered and signed consent. The patient was placed into the dorsal lithotomy position; a speculum was inserted in the vagina. Using aseptic technique for the procedure, the cervix was cleansed with Betadine. The anterior lip of the cervix was grasped with a single tooth tenaculum. The uterus was sounded to 7 cm with a 4 mm Pipelle was used. Tissues samples were obtained and placed in formalin, in a patient labeled container and sent to the pathology department. At the end of the procedure, there was minimal bleeding noted The patient tolerated the procedure well and was discharged in good condition with the following instructions: Nothing in the vagina until the bleeding stops. No sex until the bleeding stops, to call if any of the following occurs: fever (>100.4), flu-like symptoms, abdominal pain, heavy bleeding, four smelling vaginal discharge. The patient was instructed to schedule a Follow up appointment in 2 weeks to discuss pathology results of the biopsy and treatment options. This note was generated with a voice recognition program. Some errors may have been overlooked during the review of this note. Sometimes these errors may affect the content or meaning of a given sentence. [id number] Biopsy Assessment & Plan Assessment & Plan (1) Endometrial cells on cervical Pap smear inconsistent w/LMP: Code(s): R87.619 - Unspecified abnormal cytological findings in specimens from cervix uteri Category: Medical Plan: Discussed with the patient the results of the Pap smear negative with HPV negative with the presence of normal endometrial cells, recommended endometrial sampling to rule out endometrial pathology including endometrial hyperplasia and/or malignancy. Recommended to the patient that the next step is an endometrial sampling via hysteroscopy D&C possible polypectomy versus endometrial biopsy to r/o endometrial pathology including hyperplasia or cancer. All the pros and cons risks and benefits of each approach were discussed with the patient, endometrial biopsy being less invasive, office procedure with less sensitivity and inability diagnose a polyp and removal versus hysteroscopy done under anesthesia more invasive more sensitive to endometrial cancer and possibility of diagnosing and endometrial polyp with the possibility of polypectomy. All questions were answered pt verbalized understanding and decided to proceed with endometrial biopsy EMB done, see procedure Orders: Orders AMB Endometrial Biopsy Today R87.619 - Unspecified abnormal cytological findings in specimens from cervix uteri Coding Level of Care Code Procedure Only Diagnoses Endometrial cells on cervical Pap smear inconsistent w/LMP R87.619 CPT Codes Endometrial Biopsy - CPT: 50917-Dibitsflmoy Biopsy ([id number])
== END 2024-02-27 11:38 | disposition home or self-care (01) ==
PROVIDERS: PCP Internal Medicine Medical Oncology; Referring Provider Internal Medicine Medical Oncology; Visit Provider Obstetrics & Gynecology
DX: R87.619 Unspecified abnormal cytological findings in specimens from cervix uteri (principal)
CPT/HCPCS: 58100

== ENCOUNTER 2024-03-21 10:01 | Outpatient (REF) | payer MEDICAID, SELFPAY ==
[2024-03-21 11:51] LABS: Appearance Urine Turbid; Color Urine Yellow; Glucose Urine UA Negative (Negative); Leukocyte Esterase Urine Negative (Negative); Nitrite Urine Negative (Negative); Urine Blood Negative (Negative); Urine Ketones Trace mg/dL (Negative); Urine Protein Negative (Neg-Trace)
== END 2024-03-21 10:02 | disposition home or self-care (01) ==
LOC: HO.LAB 10:01
PROVIDERS: PCP Internal Medicine Medical Oncology; Visit Provider Internal Medicine Medical Oncology
DX: R31.9 Hematuria, unspecified (principal)
CPT/HCPCS: 81003; 87086; 87088; 87186

== ENCOUNTER 2024-03-29 09:53 | Outpatient (AMB) | payer MEDICAID, SELFPAY ==
--- NOTE | 2024-03-29 09:56 | A.OFFVIS_ITS ---
Vital Signs 03/29/24 09:58 03/29/24 09:59 Height 5 ft 5 in Weight 202 lb BMI 33.6 BP 122/74 Blood Pressure Location Lt brachial Intake Visit Reasons: EMB Follow up, Room 1 Allergies No Known Allergies Allergy (Verified 02/27/24 09:59) HPI Comments Details: The patient is presenting after endometrial biopsy. The patient has no complaints, no vaginal bleeding, no feverishness chills or abdominal pain. The endometrial biopsy pathology report showed the following: Endometrium, biopsy: Superficial strips of benign endometrium; no atypia identified. [facility] Medical History Severe headache Depression Sleep apnea Arthritis GERD (gastroesophageal reflux disease) Seizures Anxiety Surgical History History of tubal ligation Social History Alcohol intake: never Patient Tobacco Use Status: Current everyday Tobacco user Cigarettes Per Day: 8 Sexual orientation: Straight/Heterosexual Gender identity: Female Female Reproductive History Menstrual Age of Menarche: 9 Review of Systems Const All systems reviewed & are unremarkable except as noted in HPI and below Reports as per HPI and Reports no additional complaints GI Reports no additional complaints Reports no additional complaints Physical Exam Vital Signs: Last Vital Signs BP 122/74 03/29/24 09:59 BMI result Body Mass Index 33.6 Assessment & Plan Assessment & Plan (1) Endometrial cells on cervical Pap smear inconsistent w/LMP: Code(s): R87.619 - Unspecified abnormal cytological findings in specimens from cervix uteri Category: Medical Plan: Discussed with the patient the results of the endometrial biopsy . Discussed with the patient the sensitivity, specificity, positive and negative predictive value, of endometrial biopsy in detecting endometrial pathology including but not limited to endometrial hyperplasia, cancer and other pathology; instructed the patient to call in case of vaginal bleeding bleeding, the next step will be to proceed with a diagnostic hysteroscopy/D&C for further endometrial sampling evaluation to rule out endometrial pathology. All questions answered and the patient verbalized understanding and agreed with the plan. Coding Level of Care Code Est Pt Level 3 (65952) Diagnoses Endometrial cells on cervical Pap smear inconsistent w/LMP R87.619
[2024-03-29 09:58] VITALS: BMI 33.6
[2024-03-29 09:59] VITALS: BP 122/74
== END 2024-03-29 10:07 | disposition home or self-care (01) ==
LOC: HO.HWS 09:53
PROVIDERS: PCP Internal Medicine Medical Oncology; Visit Provider Obstetrics & Gynecology
DX: R87.619 Unspecified abnormal cytological findings in specimens from cervix uteri (principal)
CPT/HCPCS: 99213

== ENCOUNTER → 2024-03-29 09:53 | Outpatient (BNVA) | payer MEDICAID, SELFPAY | PROVIDERS: PCP Internal Medicine Medical Oncology; Visit Provider Obstetrics & Gynecology | DX: R87.619 Unspecified abnormal cytological findings in specimens from cervix uteri (principal) | CPT/HCPCS: 99212 ==

== ENCOUNTER 2024-05-08 09:04 | Emergency (ER) | payer MEDICAID, SELFPAY ==
--- NOTE | ~2024-05-08 | CT_ITS ---
EXAMINATION: CT HEAD WITHOUT CONTRAST CT CERVICAL SPINE WITHOUT CONTRAST CLINICAL INFORMATION: Trauma. COMPARISON: September 30, 2020. TECHNIQUE: CT of the head and cervical spine were performed without intravenous contrast. Multiplanar reformats were rendered and reviewed. This CT examination was performed using dose optimization techniques as appropriate, variously including the following: *Automated exposure control *Adjustment of mA and/or kV according to patient size (this includes techniques or standardized protocols for targeted exams where dose is matched to indication/reason for exam; i.e. extremities or head) *Use of iterative reconstruction technique DLP: 1127 mGy-cm. 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 No intracranial hemorrhage, large acute infarction, or mass lesion is seen. No extra-axial collection is appreciated. Apart from hydrocephalus ex vacuo involving the occipital horn of the right lateral ventricle, the ventricles appear unremarkable in size and configuration without evidence of hydrocephalus. The visualized paranasal sinuses and mastoid air cells are clear. CT cervical spine: The vertebral body heights appear maintained. No cervical spine fracture is seen. The cervical alignment appears normal. The paraspinal soft tissues appear within normal limits. The partially imaged lung apices appear clear. CT/CT head/brain wo IV con IMPRESSION: CT head: No acute intracranial finding. CT cervical spine: No cervical spine fracture or traumatic malalignment identified. Electronically signed by: Juan Jose Martinez MD 05/08/2024 01:42 PM [facility]
--- NOTE | ~2024-05-08 | CT_ITS ---
EXAMINATION: CT HEAD WITHOUT CONTRAST CT CERVICAL SPINE WITHOUT CONTRAST CLINICAL INFORMATION: Trauma. COMPARISON: September 30, 2020. TECHNIQUE: CT of the head and cervical spine were performed without intravenous contrast. Multiplanar reformats were rendered and reviewed. This CT examination was performed using dose optimization techniques as appropriate, variously including the following: *Automated exposure control *Adjustment of mA and/or kV according to patient size (this includes techniques or standardized protocols for targeted exams where dose is matched to indication/reason for exam; i.e. extremities or head) *Use of iterative reconstruction technique DLP: 1127 mGy-cm. 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 No intracranial hemorrhage, large acute infarction, or mass lesion is seen. No extra-axial collection is appreciated. Apart from hydrocephalus ex vacuo involving the occipital horn of the right lateral ventricle, the ventricles appear unremarkable in size and configuration without evidence of hydrocephalus. The visualized paranasal sinuses and mastoid air cells are clear. CT cervical spine: The vertebral body heights appear maintained. No cervical spine fracture is seen. The cervical alignment appears normal. The paraspinal soft tissues appear within normal limits. The partially imaged lung apices appear clear. CT/CT cervical spine wo IV con IMPRESSION: CT head: No acute intracranial finding. CT cervical spine: No cervical spine fracture or traumatic malalignment identified. Electronically signed by: Juan Jose Martinez MD 05/08/2024 01:42 PM [facility]
[2024-05-08 09:18] VITALS: BP 137/46; PULSE 60; RESP 20; TEMP 36.4; O2SAT 98; BMI 32.6
--- NOTE | 2024-05-08 09:44 | ECG_ITS ---
Test Reason : CP Blood Pressure : / mmHG Vent. Rate : 064 BPM Atrial Rate : 064 BPM P-R Int : 140 ms QRS Dur : 084 ms QT Int : 412 ms P-R-T Axes : 051 004 -05 degrees QTc Int : 425 ms Normal sinus rhythm Nonspecific ST and T wave abnormality Abnormal ECG When compared with ECG of 24-MAY-2017 15:33, Inverted T waves have replaced nonspecific T wave abnormality in Inferior leads Inverted T waves have replaced nonspecific T wave abnormality in Anterior leads Referred By: Dario Regan Electronically Signed By:GRIFFIN SNIDER MD
[2024-05-08 09:46] LABS: Basophils Percent Auto 0.4 % (0-2); Eosinophils Absolute Auto 0.1 X10*3/uL (0.0-0.4); Eosinophils Percent Auto 1.8 % (0-4); Hematocrit 36.1 % (37.0-47.0); Hemoglobin 12.4 g/dl (12.0-16.0); Imm Gran Abs Auto 0.05 X10*3/uL (0.00-0.03); Imm Gran Pct Auto 0.7 % (0.0-0.4); MANUAL DIFF FLAG NO; Mean Corpuscular HGB Conc 34.3 g/dl (31.0-35.0); Mean Corpuscular Hemoglobin 34.3 pg (27.0-33.0); Mean Corpuscular Volume 99.7 fL (80.0-98.0); Mean Platelet Volume 10.2 fL (9.4-12.3); Monocytes Absolute Auto 0.5 X10*3/uL (0.1-1.2); Neutrophils Percent Auto 60.1 % (45-73); Platelet Count 168 X10*3/uL (160-400); Red Blood Count 3.62 X10*6/uL (4.20-5.50); Red Cell Distribution Width 14.2 % (11.0-16.0); White Blood Count 6.7 X10*3/uL (4.8-10.8)
--- NOTE | 2024-05-08 09:46 | ED_ITS ---
HPI - Fall General Chief Complaint: Dizziness Stated Complaint: Multiple falls, head injury Time Seen by Provider: 05/08/24 09:40 Source: patient and family Mode of arrival: ambulatory Limitations: no limitations History of Present Illness HPI Narrative: THIS IS A 54 YEARS OLD PRESENTED TO THE EMERGENCY ROOM AFTER A FALL AT HOME YESTERDAY. PATIENT HAS HISTORY OF FALLS. 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 SHE IS AMBULATORY TO THE EMERGENCY DEPARTMENT SHE AMBULATE AT [facility] WITH A WALKER. SHE HAS NO SYSTEMIC SYMPTOMS NO CHEST PAIN SHORTNESS OF BREATH. MD complaint: fall Onset (ago): day(s) (1) Fall from: standing Fall witnessed: no Place fall occurred: home Loss of consciousness: none Prolonged down time: no Symptoms prior to fall: none Context: history of frequent falls Associated symptoms (after fall): denies Related Data Home Medications ?Medication ?Instructions ?Recorded ?Confirmed artifi.tears(hypromellose)(PF) 0.3 1 drp ophthalmic (eye) Q4-6H PRN 07/03/20 07/03/20 % eye drops ypyshkqady-xsryxynbcnxgz-pjhjaphc 1 cap PO Q4-6H PRN 07/03/20 07/03/20 50 mg-325 mg-40 mg capsule (Esgic) divalproex 250 mg tablet,extended 500 mg PO DAILY 07/03/20 07/03/20 release 24 hr duloxetine 20 mg capsule,delayed 20 mg PO BID 07/03/20 07/03/20 release (Cymbalta) hydroxyzine pamoate 25 mg capsule 25 mg PO BEDTIME 07/03/20 07/03/20 naproxen sodium 550 mg tablet 550 mg PO BID 07/03/20 07/03/20 omeprazole 20 mg capsule,delayed 20 mg PO DAILY 07/03/20 07/03/20 release phenytoin sodium extended 100 mg 100 mg PO BID 07/03/20 07/03/20 capsule riboflavin (vitamin B2) 100 mg 100 mg PO DAILY 07/03/20 07/03/20 tablet zolpidem 10 mg tablet 10 mg PO BEDTIME PRN 07/03/20 07/03/20 zonisamide 25 mg capsule 25 mg PO DAILY 07/03/20 07/03/20 Previous Rx's ?Medication ?Instructions ?Recorded cyclobenzaprine 10 mg tablet 10 mg PO TID PRN muscle spasm #12 05/04/21 tabs gentamicin 0.3 % eye drops 1 drp ophthalmic-Left Q4H #5 mL 09/30/20 ibuprofen 600 mg tablet 600 mg PO Q8H PRN pain #20 tabs 09/30/20 lidocaine 5 % topical patch 1 patch topical DAILY #15 ea 09/30/20 (Lidoderm) Allergies Allergy/AdvReac Type Severity Reaction Status Date / Time No Known Allergies Allergy Verified 05/08/24 09:22 Review of Systems 2 Constitutional: Constitutional: Reports no additional constitutional complaints ENT: Reports system reviewed and no additional complaints, except as documented Gastrointestinal: Gastrointestinal: Reports no additional gastrointestinal complaints [facility] Past Medical History Attestation statement: The following information was validated with the patient. [facility] Narrative: HX CRANIOTOMY/BRAIN ANEURYSM REPAIR Medical History Severe headache Depression Sleep apnea Arthritis GERD (gastroesophageal reflux disease) Seizures Anxiety Surgical History History of tubal ligation Social History Social History Alcohol intake: never Patient Tobacco Use Status: Current everyday Tobacco user Cigarettes Per Day: 8 Advance Directives: No Advance Directives Information Provided: Yes Sexual orientation: Straight/Heterosexual Gender identity: Female Physical Exam 2 Vital Signs: Vital Signs: Last Vital Signs Temp 97.1 F 05/08/24 14:18 Pulse 66 05/08/24 14:42 Resp 14 05/08/24 14:18 BP 165/73 H 05/08/24 14:42 Pulse Ox 100 05/08/24 14:42 O2 Del Method Room Air 05/08/24 14:18 BMI result Body Mass Index 32.6 Const: General: cooperative Nutritional Appearance: well nourished O rientation/consciousness: patient oriented x3 HEENT: Head: Yes normal to inspection General nose exam: Normal external nose present Face and sinus: Yes normal facial exam Neck: Neck: Yes normal visual inspection Chest: Chest palpation & inspection: normal inspection of the chest Resp: Effort & Inspection: normal respiratory effort Auscultation: clear to auscultation bilaterally Cardio: Jugular venous distension: no JVD Rate: regular rate Rhythm: r egular rhythm GI: Inspection: Yes normal to inspection Palpation (GI): Soft to palpation Skin: General skin exam: no rashes or lesions noted Rashes: no rashes H air: normal Nails: normal Neuro: General: patient oriented x3 Extrem: General: Yes normal to inspection Course Reevaluation(s) Reevaluation #1: CT HEAD AND CSPINE NEG WILL CONSULT 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 Time: 14:15 Reevaluation #2: SEEN BY PHYSICAL THERAPY DID VERY WELL, PATIENT WILL BE DISCHARGED I CONSULTED JANIS ARRANGED [facility] Time: 14:50 Medical Decision Making Medical Decision Making [facility] Narrative: PATIENT PRESENTED WITH A FALL HISTORY OF FREQUENT FALL WE WILL GET LABS EKG AND CT Differential Diagnosis Differential Diagnoses: The differential diagnosis associated with the presentation includes SUBDURAL HEMATOMA/EPIDURAL HEMATOMA Admission/Observation Consideration of admission/observation: Escalation of care including admission/observation considered Lab Data [facility] Lab Attestation statement: I reviewed the patient's lab results. 05/08/24 09:42 05/08/24 09:42 Labs: Lab Results 05/08/24 05/08/24 05/08/24 Range/Units 09:42 10:08 11:41 WBC 6.7 (4.8-10.8) X10*3/uL RBC 3.62 L (4.20-5.50) X10*6/uL Hgb 12.4 (12.0-16.0) g/dl Hct 36.1 L (37.0-47.0) % MCV 99.7 H (80.0-98.0) fL MCH 34.3 H (27.0-33.0) pg MCHC 34.3 (31.0-35.0) g/dl RDW 14.2 (11.0-16.0) % Plt Count 168 (160-400) X10*3/uL MPV 10.2 (9.4-12.3) fL Immature Gran % (Auto) 0.7 H (0.0-0.4) % Neut % (Auto) 60.1 (45-73) % Lymph % (Auto) 29.0 (20-40) % Thayer % (Auto) 8.0 (2-11) % Eos % (Auto) 1.8 (0-4) % Baso % (Auto) 0.4 (0-2) % Lymph # (Auto) 2.0 (1.2-4.9) X10*3/uL Thayer # (Auto) 0.5 (0.1-1.2) X10*3/uL Eos # (Auto) 0.1 (0.0-0.4) X10*3/uL Baso # (Auto) 0.0 (0.0-0.2) X10*3/uL Abs Immat Gran (auto) 0.05 H (0.00-0.03) X10*3/uL Absolute Neuts (auto) 4.0 (2.0-8.3) x10*3/uL Absolute Nucleated RBC 0.000 (0.0-0.012) X10*3/uL Nucleated RBC % (auto) 0.0 (0.0-0.2) /100WBC Sodium 142 (135-145) mmol/L Potassium 4.6 (3.3-5.1) mmol/L Chloride 105 (96-108) mmol/L Carbon Dioxide 27 (22-29) mmol/L Anion Gap 15 (12-20) BUN 9 (9-16) mg/dL Creatinine 0.69 (0.5-1.4) mg/dL Estim Creat Clear Calc 103.8 Estimated GFR > 60 Random Glucose 114 (60-115) mg/dL Calcium 9.1 (8.4-10.2) mg/dL Troponin I High Sens < 2.7 (<3.5-17.0) ng/L Urine Color Yellow Urine Appearance Clear Urine pH 8.0 (5.0-9.0) Ur Specific Rickreall <= 1.005 (1.005-1.025) Urine Protein Negative (Neg-Trace) mg/dL Urine Glucose (UA) Negative (Negative) mg/dL Urine Ketones Negative (Negative) mg/dL Urine Blood Negative (Negative) Urine Nitrite Negative (Negative) Ur Leukocyte Esterase Negative (Negative) Radiology Impression Discussion of test interpretation with radiology: I have reviewed the radiologist's reading. Radiologist Impression: No change in right parieto-occipital craniotomy with subjacent encephalomalacia. No intracranial hemorrhage, large acute infarction, or mass lesion is seen. No extra-axial collection is appreciated. Apart from hydrocephalus ex vacuo involving the occipital horn of the right lateral ventricle, the ventricles appear unremarkable in size and configuration without evidence of hydrocephalus. The visualized paranasal sinuses and mastoid air cells are clear. CT cervical spine: The vertebral body heights appear maintained. No cervical spine fracture is seen. The cervical alignment appears normal. The paraspinal soft tissues appear within normal limits. The partially imaged lung apices appear clear. CT/CT head/brain wo IV con IMPRESSION: CT head: No acute intracranial finding. CT cervical spine: No cervical spine fracture or traumatic malalignment identified. Electronically signed by: Juan Jose Martinez MD 05/08/2024 01:42 PM [facility] Workstation: [facility] Independent Historian DAUGHTER Chronic Conditions HX CRANIOTOMY,HX FALL Discharge Plan Discharge Clinical Impression: Fall Qualifiers: Encounter type: initial encounter Qualified Code(s): W19.XXXA - Unspecified fall, initial encounter Head injury Qualifiers: Encounter type: initial encounter Qualified Code(s): S09.90XA - Unspecified injury of head, initial encounter Patient Disposition: Home, Self-Care Instructions: Head Injury (ED), Fall Prevention (ED) Additional Instructions: FOLLOW-UP WITH YOUR PRIMARY CARE PHYSICIAN RETURN TO THE EMERGENCY ROOM IF YOU ARE WORSE Prescriptions: No Action cyclobenzaprine 10 mg tablet 10 mg PO TID PRN (Reason: muscle spasm) Qty: 12 0RF ibuprofen 600 mg tablet 600 mg PO Q8H PRN (Reason: pain) Qty: 20 0RF lidocaine [Lidoderm] 5 % adhesive patch,medicated 1 patch topical DAILY Qty: 15 0RF Rx Instructions: leave on most painful area for up to 12 hrs gentamicin 0.3 % drops 1 drp ophthalmic-Left Q4H Qty: 5 0RF hydroxyzine pamoate 25 mg capsule 25 mg PO BEDTIME artifi.tears(hypromellose)(PF) 0.3 % drops 1 drp ophthalmic (eye) Q4-6H PRN riboflavin (vitamin B2) 100 mg tablet 100 mg PO DAILY omeprazole 20 mg capsule,delayed release(DR/EC) 20 mg PO DAILY duloxetine [Cymbalta] 20 mg capsule,delayed release(DR/EC) 20 mg PO BID naproxen sodium 550 mg tablet 550 mg PO BID divalproex 250 mg tablet extended release 24 hr 500 mg PO DAILY bzplysxilm-uoyfuzldnvbpe-jbwi [Esgic] 50-325-40 mg capsule 1 cap PO Q4-6H PRN zonisamide 25 mg capsule 25 mg PO DAILY phenytoin sodium extended 100 mg capsule 100 mg PO BID zolpidem 10 mg tablet 10 mg PO BEDTIME PRN Referrals: Alejandro FIGUEROA [Outside] Print Language: Malawian
[2024-05-08 10:03] VITALS: BP 158/64; PULSE 87; RESP 16; TEMP 36.2; O2SAT 99
[2024-05-08 10:04] LABS: Anion Gap 15 (12-20); Blood Urea Nitrogen 9 mg/dL (9-16); Calcium 9.1 mg/dL (8.4-10.2); Carbon Dioxide 27 mmol/L (22-29); Chloride 105 mmol/L (96-108); Creatinine Clr Calc Pharmacy 103.8; Estimated Glomerular Filt Rate > 60; Glucose Random 114 mg/dL (60-115); Potassium 4.6 mmol/L (3.3-5.1); Sodium 142 mmol/L (135-145)
[2024-05-08 10:18] LABS: Appearance Urine Clear; Color Urine Yellow; Glucose Urine UA Negative (Negative); Leukocyte Esterase Urine Negative (Negative); Nitrite Urine Negative (Negative); Specific Gravity - Urine <= 1.005 (1.005-1.025); Urine Blood Negative (Negative); Urine Ketones Negative (Negative); Urine Protein Negative (Neg-Trace)
[2024-05-08 12:16] LABS: Troponin-I High Sensitivity < 2.7 ng/L (<3.5-17.0)
[2024-05-08 12:30] VITALS: BP 146/68; PULSE 64; RESP 14; TEMP 36.4; O2SAT 100
[2024-05-08 14:18] VITALS: BP 165/73; PULSE 66; RESP 14; TEMP 36.2; O2SAT 100
--- NOTE | 2024-05-08 14:32 | PC.NURSE ---
PT at bedside evaluating pt
[2024-05-08 14:42] VITALS: BP 165/73; PULSE 66; O2SAT 100
[2024-05-08 15:12] VITALS: BP 165/73; PULSE 66; RESP 18; TEMP 36.9; O2SAT 100
--- NOTE | 2024-05-08 15:18 | MHC.CM.ED ---
Received case management consult from Dr Regan. Patient came to the ER due to falls. Work up essentially negative. Physical therapy eval completed. Home with services is recommended. Met with patient and sig other, Tao, in regards to discharge planning. Patient is primarily [place] speaker. Tao is bilingual. 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 Patient lives alone, ambulates with a cane and had no services prior to coming to the hospital. PCP verified. Patietn agreeable to referral to [facility] for physical therapy. Tao will transport patient home. Dr Regan aware. Continue to monitor for d/c needs.
[2024-05-08 15:36] LABS: COVID-19 Test Negative (Negative); IDNOW Serial# 152EDE1D
--- OUTSIDE RECORDS SUMMARY | 2024-05-09 19:16 | XMS_ITS ---
Author Organization David Harris III, MD Address [address] [place] [address] Care Team Providers Care Sales Order Clerk Name Role Phone David Harris Primary Care Provider REASON FOR VISIT Rx Request Encounters Encounter Location Date Provider Diagnosis David Harris III, MD [address] [place] [address] [place] [address] 05/09/2024 David Harris Plan Of Treatment Next Appt Details Provider Name:David Harris, 05/28/2024 02:30:00 PM, [address] [place] [address] [place], [address], Provider Name:David Harris, 08/15/2024 10:30:00 AM, [address] [place] [address] [place], [address], Provider Name:David Harris, 01/21/2025 02:00:00 PM, [address] [place] [address] [place], [address], Progress Notes * Lisset VARELAOB: 8 (54 yo F)Acc No.[id number]:05/09/2024 Patient:?Sierra VARELA :1970???Age:54 Y???Sex:Female Address[address] [place], [address] * true * Date:? Generated for Sarah romo/Kay/Gurpreet on:?05/09/2024 07:16 PM EST
--- OUTSIDE RECORDS SUMMARY | 2024-05-09 19:16 | XMS_ITS ---
Author Organization David Harris III, MD Address [address] [place] [address] Care Team Providers Care Policy Manager Name Role Phone David Harris Primary Care Provider REASON FOR VISIT Message Encounters Encounter Location Date Provider Diagnosis David Harris III, MD [address] [place] [address] [place] [address] 05/07/2024 David Harris Plan Of Treatment Next Appt Details Provider Name:David Harris, 05/28/2024 02:30:00 PM, [address] [place] [address] [place], [address], Provider Name:David Harris, 08/15/2024 10:30:00 AM, [address] [place] [address] [place], [address], Provider Name:David Harris, 01/21/2025 02:00:00 PM, [address] [place] [address] [place], [address], Progress Notes * Lisset VARELAOB: 8 (54 yo F)Acc No.[id number]:05/07/2024 Patient:?Sierra VARELA :1970???Age:54 Y???Sex:Female Address[address] [place], [address] * true * Date:? Generated for Sarah romo/aKy/Gurpreet on:?05/09/2024 07:16 PM EST
--- OUTSIDE RECORDS SUMMARY | 2024-05-09 19:17 | XMS_ITS | Patient Health Record ---
Author Organization David Harris III, MD Address [address] [address] Care Team Providers Care Electronic Intelligence Officer Name Role Phone David Harris Primary Care Provider [phone] Allergies Allergen (clinical drug ingredient) Drug/Non Drug Allergy documented on EMR Reaction Allergy Type Onset Date Status No Known Drug Allergy Unknown Drug Allergy Active Results Component Value Reference Range Notes Phenytoin Dilantin Reviewed date:01/15/2024 08:02:24 AM Interpretation: Performing Lab:[facility], [address] [place] [address] [place] [address] Notes/Report: 20240102 2200 Phenytoin Dilantin 24.3 10.0-20.0 ug/mL Critical value for test(s):DIL Results called to and read back by: JAMAAL VENCES Person calling: LIZZIE Date: 01/03/24 Time: 1124 URINE DIP STICK Reviewed date:02/22/2024 06:40:59 AM Interpretation: Performing Lab: Notes/Report: SG 1.010 1.005 - 1.025 pH 6.5 5.0 - 9.0 BALWINDER 15 Negative - NIT neg Negative - PRO + Negative - Trace GLU NEG Negative - KET + Negative - UBG 0.2 0.1 - 1.8 CARMINE NEG 0.2 - 1.3 BLD LARGE +++ Negative - Menstrating no MM tomosynthesis screening B I Reviewed date:05/28/2023 07:27:28 AM Interpretation: Performing Lab: Notes/Report: [facility] [address] [place] [address] Mammography Report Signed Patient: Sierra Michele MR#: [id number] [birth year] : 1970 Acct:[id number] Age/Sex: 53 / F ADM Date: 05/25/23 Loc: HO.MAMMO Attending Dr: David Harris MD Ordering Physician: David Harris MD Results: 0Incompl ete: Needs Additional Imaging Evaluation Date of Service: 05/25/23 Follow Up: Additional Imagi ng Procedure(s): MM tomosynthesis screening BI Accession Number(s): [id number] cc: David Harris MD EXAMINATION: MM SCREENING DIGITAL BREAST TOMOSYNTHESIS, BILATERAL CLINICAL INFORMATION: Screening. Asymptomatic. COMPARISON: Mammography: This study is compared with prior exams dating back to 2017. TECHNIQUE: Digital breast tomosynthesis is performed in both the craniocaudal and mediolateral oblique views along with computer-aided detection (CAD). Synthesized 2D images are generated from the tomosynthesis. FINDINGS: There are scattered areas of fibroglandular density (ACR BI-RADS breast composition Category b). There are grouped calcifications in the upper inner quadrant of the left breast. Additional mammographic imaging with magnification this finding is advised. In the right breast, there are are no significant masses, abnormal calcifications, or other abnormalities. MM/MM tomosynthesis screening BI IMPRESSION: Calcifications of the left breast warrant additional mammographic imaging magnification. No mammographic signs of malignancy right breast. ASSESSMENT: BI-RADS BI-RADS 0 - Incomplete: Needs additional Imaging. RECOMMENDATION: Additional views of the left breast Radiology department staff will contact the patient for additional imaging. Additional Imaging required This examination should not preclude the clinical evaluation of a suspicious palpable abnormality. This patient's information was entered into a reminder system with a target due date for their next mammogram. Dictated By: Fela Sommer MD Signed By: <Electronically signed by Fela Sommer MD in OV> 05/28/23 0304 DD/ 1308 TD/TT: Icicle Machine Operator: [facility] [address] [place], [place] [address] Mammography Report Signed Patient: Sierra Michele MR#: [id number] 43 : 1970 Acct:[id number] Age/Sex: 53 / F ADM Date: 05/25/23 Loc: HO.MAMMO Attending Dr: David Harris MD Ordering Physician: David Harris MD Results: 0Incompl ete: Needs Additiona l Imaging Evaluation Date of Service: 05/25/23 Follow Up: Additional Imagi ng Procedure(s): MM tomosynthesis screening BI Accession Number(s): [id number] cc: David Harris MD EXAMINATION: MM SCREENING DIGITAL BREAST TOMOSYNTHESIS, BILATERAL CLINICAL INFORMATION: Screening. Asymptomatic. COMPARISON: Mammography: This study is compared with prior exams dating back to 2017. TECHNIQUE: Digital breast tomosynthesis is performed in both the craniocaudal and mediolateral oblique views along with computer-aided detection (CAD). Synthesized 2D image s are generated from the tomosynthesis. FINDINGS: There are scattered areas of fibroglandular density (ACR BI-RADS breast composition Category b). There are grouped calcifications in the upper inner quadrant of the left breast. Additional mammographic imaging with magnification this finding is advised. In the right breast, there are are no significant masses, abnormal calcifications, or other abnormalities. MM/MM tomosynthesis screening BI IMPRESSION: Calcifications of th e left breast warrant additional mammographic imaging magnification. No mammographic sign s of malignancy right breast. ASSESSMENT: BI-RADS BI-RADS 0 - Incomplete: Needs additional Imaging. RECOMMENDATION: Additional views of the left breast Radiology department staff will contact the patient for additional imaging. Additional Imaging required This examination should not preclude the clinical evaluation of a suspicious palpable abnormality. This patient's information was entered into a reminder system with a target due date for their next mammogram. Dictated By: Fela Sommer MD Signed By: <Electronically signed by Fela Sommer MD in OV> 05/28/23 0304 DD/ 1308 TD/TT: Icicle Machine Operator: HPILLIP tomosynthemirta diagnostic LT Reviewed date:07/03/2023 07:56:42 AM Interpretation: Performing Lab: Notes/Report: [facility] [address] [place] [address] Mammography Report Signed Patient: Sierra Michele MR#: [id number] 43 : 1970 Acct:[id number] Age/Sex: 53 / F ADM Date: 07/01/23 Loc: HO.MAMMO Attending Dr: David Harris MD Ordering Physician: David Harris MD Results: 2Benign Findings Date of Service: 07/01/23 Follow Up: 1 Year From [facility] ina Mammogram Procedure(s): MM tomosynthesis diagnostic LT Accession Number(s): [id number] cc: David Harris MD EXAMINATION: MM DIAGNOSTIC DIGITAL BREAST TOMOSYNTHESIS, LEFT CLINICAL INFORMATION: Additional views for grouped linear calcifications left breast upper inner quadrant. COMPARISON: Mammography: 05/25/2023, 05/19/2022, 05/11/2021, 02/08/2020, 02/02/2019, and dating back to 2017. TECHNIQUE: Digital breast tomosynthesis is performed the following views: Full-field left digital 3-D mediolateral view, and 2-D spot magnification left CC and ML views. FINDINGS: There are scattered areas of fibroglandular density (ACR BI-RADS breast composition Category b). There are 4 rounded calcifications linearly grouped in the upper inner quadrant of the left breast, which on tomographic imaging localize to the skin. These are benign. No further follow-up recommended. No suspicious findings left breast. MM/MM tomosynthesis diagnostic LT IMPRESSION: No findings suspicious for malignancy left breast. Calcifications arranged in a linear configuration localize to the skin on tomographic images, and are benign. No further follow-up recommended. Recommend the patient return to routine annual screening. ASSESSMENT: BI-RADS BI-RADS 2 - Benign Findings RECOMMENDATION: 1 year F/U Results were provided to the patient at time of visit by the technologist. This patient's information was entered into a reminder system with a target due date for their next mammogram. Dictated By: Porter Minaya MD Signed By: <Electronically signed by Porter Minaya MD in OV> 07/01/23 1432 DD/ 1332 TD/TT: Icicle Machine Operator: [facility] [address] [place] [address] [place] [address] Mammography Report Signed Patient: Sierra Michele MR#: [id number] 43 : 1970 Acct:[id number] Age/Sex: 53 / F ADM Date: 07/01/23 Loc: HO.MAMMO Attending Dr: David Harris MD Ordering Physician: David Harris MD Results: 2Benign Findings Date of Service: 07/01/23 Follow Up: 1 Year From Orig ina Mammogram Procedure(s): MM tomosynthesis diagnostic LT Accession Number(s): [id number] cc: David Harris MD EXAMINATION: MM DIAGNOSTIC DIGITA L BREAST TOMOSYNTHESIS, LEFT CLINICAL INFORMATION: Additional views for grouped linear calcifications left breast upper inner quadrant. COMPARISON: Mammography: 05/25/2023, 05/19/2022, 05/11/2021, 02/08/2020, 02/02/2019, and dati ng back to 2017. TECHNIQUE: Digital breast tomosynthesis is performed the following views: Full-field left digital 3-D mediolateral view, and 2-D spot magnification left C C and ML views. FINDINGS: There are scattered areas of fibroglandular density (ACR BI-RADS breast composition Category b). There are 4 rounded calcifications linearly grouped in the upper inner quadrant of the left breast, which on tomographic imaging localize to the skin. These are benign. No further follow-up recommended. No suspicious findin gs left breast. MM/MM tomosynthesis diagnostic LT IMPRESSION: No findings suspicio us for malignancy left breast. Calcifications arranged in a linear configuration localize to the skin on tomographic image s, and are benign. No further follow-up recommended. Recommend the patien t return to routine annual screening. ASSESSMENT: BI-RADS BI-RADS 2 - Benign Findings RECOMMENDATION: 1 year F/U Results were provide d to the patient at time of visit by the technologist. This patient's information was entered into a reminder system with a target due date for their next mammogram. Dictated By: Porter Minaya MD Signed By: <Electronically signed by Porter Minaya MD in OV> 07/01/23 1432 DD/ 1332 TD/TT: Icicle Machine Operator: MAMMOGRAM DIGITAL BILATERAL SCREEN Reviewed date:01/18/2024 02:26:41 PM Interpretation:undefined Performing Lab: Notes/Report: undefined Complete Blood Count Auto Di ff Reviewed date:01/15/2024 08:02:24 AM Interpretation: Performing Lab:[facility], [address] [place] [phone] Notes/Report: White Blood Count 4.4 4.8-10.8 X10*3/uL Red Blood Count 3.64 4.20-5.50 X10*6/uL Hemoglobin 11.7 12.0-16.0 g/dl Hematocrit 35.8 37.0-47.0 % Mean Corpuscular Volume 98.4 80.0-98.0 fL Mean Corpuscular Hemoglobin 32.1 27.0-33.0 pg Mean Corpuscular HGB Conc 32.7 31.0-35.0 g/dl Red Cell Distribution Width 14.4 11.0-16.0 % Platelet Count 163 160-400 X10*3/uL Mean Platelet Volume 10.0 9.4-12.3 fL Neutrophils Percent Auto 50.2 45-73 % Imm Gran Pct Auto 0.5 0.0-0.4 % Lymphocytes Percent Auto 39.0 20-40 % Monocytes Percent Auto 6.4 2-11 % Eosinophils Percent Auto 3.4 0-4 % Basophils Percent Auto 0.5 0-2 % NRBC Pct Auto 0.0 0.0-0.2 /100WBC Neutrophils Absolute Auto 2.2 2.0-8.3 x10*3/uL Imm Gran Abs Auto 0.02 0.00-0.03 X10*3/uL Lymphocytes Absolute Auto 1.7 1.2-4.9 X10*3/uL Monocytes Absolute Auto 0.3 0.1-1.2 X10*3/uL Eosinophils Absolute Auto 0.2 0.0-0.4 X10*3/uL Basophils Absolute Auto 0.0 0.0-0.2 X10*3/uL NRBC Abs Auto 0.000 0.0-0.012 X10*3/uL Comprehensive Met. Panel Reviewed date:01/15/2024 08:02:24 AM Interpretation: Performing Lab:[facility], [address] [place] [phone] Notes/Report: Sodium 143 135-145 mmol/L Potassium 4.2 3.3-5.1 mmol/L Chloride 103 96-108 mmol/L Carbon Dioxide 30 22-29 mmol/L Anion Gap 14 12-20 Blood Urea Nitrogen 9 9-16 mg/dL Creatinine 0.64 0.5-1.4 mg/dL Estimated Glomerular Filt Rate > 60 NOTE: For -[place] individuals, multiply the result by 1.210. Chronic Kidney Disease: Estimated GFR < 60 mL/min/1.73m2 Severe Kidney Disease: Estimated GFR < 15 mL/min/1.73m2 Glucose Random 112 60-115 mg/dL Calcium 9.1 8.4-10.2 mg/dL Bilirubin Total 0.3 0.0-1.0 mg/dL Aspartate Amino Transferase 10 5-31 U/L Alanine Aminotransferase 10 0-31 U/L Total Protein 6.5 6.5-8.0 g/dL Albumin Level 3.8 3.5-5.0 g/dL Alkaline Phosphatase 103 39-117 U/L Valproate Reviewed date:01/15/2024 08:02:24 AM Interpretation: Performing Lab:[facility], [address] [place] [phone] Notes/Report: [id number] Valproate 91.2 50.0-100.0 mcg/mL Last dose was taken on 01/02/24 at 2200. PAP + HPV E6/E7 rfx 18/45 Reviewed date:02/22/2024 06:40:59 AM Interpretation: Performing Lab:[facility], [address] [place] [phone] Notes/Report: SEE SCANNED RESULTS IN EMR HPV 16 RNA TNP HPV 18/45 RNA TNP HPV mRNA E6/E7 Not Detected Not Detected Methodology: Rehab Specialist-Mediated Amplification This assay detects E6/E7 viral messenger RNA (mRNA) from 14 high-risk HPV types (16,18,31,33,35,39,45, 51,52,56,58,59,66,68). Cervical sources are required for HPV testing. If a vaginal source from a patient who has had a total hysterectomy with removal of cervix was submitted, please contact the testing laboratory for alternative testing options. For additional information, please refer to http://education.[employer]/faq/FA Q129v1 (This link if provided for information/ educational purposes only.) THIS TEST WAS PERFORMED AT: [facility] [address] [address] TYRELL ESCOBAR MD Thin Prep Source SEE NOTE None given Report Status TNP Clinical Information SEE NOTE None gi ally LMP SEE NOTE NONE GIVEN Previous PAP SEE NOTE NONE GIVEN Previous Biopsy Date SEE NOTE NONE GI ALLY State of Adequacy SEE NOTE Satisfactory for evaluation. Endocervical/transform ation zone component present. General Categorization SEE NOTE Cytol ogy Results: Other; see interpretation/result Interpretation/Result SEE NOTE Negative for intraepithelial lesion. Endometrial cells present in a woman 45 years of age or older. Cytology Comment SEE NOTE This Pap test has been evaluated with computer assisted technology. The clinical significance of endometrial cells should be interpreted in the context of menstrual history and reproductive status. If out of phase of cycle or after menopause, this finding may be associated with normal functioning endometrium, benign endometrium with stromal breakdown, hormonal alterations and, less commonly, endometrial neoplasia. Clinical correlation is suggested. Information Resources Manager SEE NOTE RMM, CT(ASCP) CT screening location: [place] [address] Review Information Resources Manager [place] Pathologist TNP PAP Infection SEE NOTE Shift in vaginal amanda suggestive of bacterial vaginosis. See Note SEE NOTE EXPLANATORY NOTE: The Pap is a screening test for cervical cancer. It is not a diagnostic test and is subject to false negative and false positive results. It is most reliable when a satisfactory sample, regularly obtained, is submitted with relevant clinical findings and history, and when the Pap result is evaluated along with historic and current clinical information. Pathology Reviewed date:2024 07:37:28 AM Interpretation: Performing Lab:[facility], [address] [place] [phone] Notes/Report: -- ---- Name: Sierra Michele Age/Sex: 53/F : 1970 Unit#: [id number] Attend Dr: Chito Rodriguez MD Re02/27/24 Status : DEP REF Location: [facility] Disch: -- ---- SPEC : [id number] RECD : 02/27/249 STATUS: HALIMA NIXON NUM: [id number] JACOB: 02/27/24-[address] [facility] DR: Chito Rodriguez MD ENTERED: 02/27/24- 39 SP TYPE: Surgical OTHR DR: David Harris MD ORDERED: HE Stain/2, Gross Micro L4 Diagnosis Endometrium, biopsy: Superficial strips of benign endometrium; no atypia identified. Clinical History Endometrial cells on cervical pap smear Microscopic Description Microscopic sections reviewed. Material Received EMB Gross Description Received in formalin labeled ?EMB? are minute fragments of pink white soft tissue mixed with mucus forming in aggregate measuring 0.9 x 0.7 x 0.1 cm which is wrapped in lens paper and entirely submitted f or microscopic examination, multiple pieces in cassette [facility] Copies To: David Harris MD [address], [address] [place] [address] Chito Rodriguez MD [facility] [address] [place] [address] -- ---- Signed (signature on file) Cedric Garza MD 02/28/24 1246 -- ---- END OF REPORT Urinalysis (Not yet reviewed by provider) Interpretation: Performing Lab:[address] [address] Notes/Report: Color Urine Yellow Appearance Urine Turbid PH 7.0 5.0-9.0 Glucose Urine UA Negative Negative mg/dL Urine Blood Negative Negative Specific [place] - Urine 1.020 1.005-1.025 Urine Protein Negative Neg-Trace mg/dL Urine Ketones Trace Negative mg/dL Nitrite Urine Negative Negative Leukocyte Esterase Urine Negative Negative Urine Culture (Not yet revie wed by provider) Interpretation: Performing Lab:[address] [address] Notes/Report: O:STAEPI Staphylococcus epidermidis Urine Culture Quant Urine Culture 10,000 to 50,000 cfu/mL Clindamycin <=0.25 Erythromycin >=8 Nitrofurantoin <=16 Oxacillin >=4 Penicillin-G >=0.5 Tetracycline >=16 Trimethoprim/Sulfamethox azole >=320 Vancomycin 2 Complete Blood Count Auto Di ff (Not yet reviewed by provider) Interpretation: Performing Lab:[address] [address] Notes/Report: White Blood Count 6.7 4.8-10.8 X10*3/uL Red Blood Count 3.62 4.20-5.50 X10*6/uL Hemoglobin 12.4 12.0-16.0 g/dl Hematocrit 36.1 37.0-47.0 % Mean Corpuscular Volume 99.7 80.0-98.0 fL Mean Corpuscular Hemoglobin 34.3 27.0-33.0 pg Mean Corpuscular HGB Conc 34.3 31.0-35.0 g/dl Red Cell Distribution Width 14.2 11.0-16.0 % Platelet Count 168 160-400 X10*3/uL Mean Platelet Volume 10.2 9.4-12.3 fL Neutrophils Percent Auto 60.1 45-73 % Imm Gran Pct Auto 0.7 0.0-0.4 % Lymphocytes Percent Auto 29.0 20-40 % Monocytes Percent Auto 8.0 2-11 % Eosinophils Percent Auto 1.8 0-4 % Basophils Percent Auto 0.4 0-2 % NRBC Pct Auto 0.0 0.0-0.2 /100WBC Neutrophils Absolute Auto 4.0 2.0-8.3 x10*3/uL Imm Gran Abs Auto 0.05 0.00-0.03 X10*3/uL Lymphocytes Absolute Auto 2.0 1.2-4.9 X10*3/uL Monocytes Absolute Auto 0.5 0.1-1.2 X10*3/uL Eosinophils Absolute Auto 0.1 0.0-0.4 X10*3/uL Basophils Absolute Auto 0.0 0.0-0.2 X10*3/uL NRBC Abs Auto 0.000 0.0-0.012 X10*3/uL Basic Metabolic Panel (Not y et reviewed by provider) Interpretation: Performing Lab:[facility], [address] [place] [phone] Notes/Report: Sodium 142 135-145 mmol/L Potassium 4.6 3.3-5.1 mmol/L Chloride 105 96-108 mmol/L Carbon Dioxide 27 22-29 mmol/L Anion Gap 15 12-20 Blood Urea Nitrogen 9 9-16 mg/dL Creatinine 0.69 0.5-1.4 mg/dL Creatinine Clr Calc Pharmacy 103.8 Provided height and weight: 167.64 cm, 91.626 kg. eGFR (calculated from the MDRD study equation) and eCrCl (calculated from the Cockcroft-Gault equation) are based on different parameters and may not yield comparable results. If eCrCl result is absurd, please check patient's height/weight. Estimated Glomerular Filt Rate > 60 Chronic Kidney Disease: Estimated GFR < 60 mL/min/1.73m2 Severe Kidney Disease: Estimated GFR < 15 mL/min/1.73m2 Glucose Random 114 60-115 mg/dL Calcium 9.1 8.4-10.2 mg/dL Troponin-I High Sensitivity (Not yet reviewed by provider) Interpretation: Performing Lab:[address] [address] Notes/Report: Troponin-I High Sensitivity < 2.7 <3.5-17.0 ng/L The [place] high sensitivity Troponin-I results should be used in conjunction with other diagnostic information such as ECG, clinical observations and information, and patient symptoms to aid in the diagnosis of LA. UA CC w/rflx Micro + Cult (N ot yet reviewed by provider) Interpretation: Performing Lab:[address] [address] Notes/Report: [id number] 1003 Urine, Clean Catch Color Urine Yellow Appearance Urine Clear PH 8.0 5.0-9.0 Glucose Urine UA Negative Negative mg/dL Urine Blood Negative Negative Specific [place] - Urine <= 1.005 1.005-1.025 Urine Protein Negative Neg-Trace mg/dL Urine Ketones Negative Negative mg/dL Nitrite Urine Negative Negative Leukocyte Esterase Urine Negative Negative COVID-19 ID NOW ([place]) (No t yet reviewed by provider) Interpretation: Performing Lab:[address] [address] Notes/Report: IDNOW Serial# [id number] COVID-19 Test Negative Negative COVID-19 Note See Note Results are for the identification of SARS-CoV2 RNA. The SARS-CoV2 RNA is generally detectable in respiratory samples during the acute phase of infection. Positive results are indicative of the presence of SARS-CoV-2 RNA; clinical correlation with patient history and other diagnostic information is necessary to determine patient infection status. Positive results do not rule out bacterial infection or co-infection with other viruses. Testing facilities within the [facility] and its territories are required to report all positive results to the appropriate public health authorities. Negative results should be treated as presumptive and, if inconsistent with clinical signs and symptoms or necessary for patient management, should be tested with different authorized or cleared molecular tests. Negative results do not preclude SARS-CoV2 RNA infection and should not be used as the sole basis for patient management decisions. Negative results should be considered in the context of a patient's recent exposures, history and the presence of clinical signs and symptoms consistent with COVID-19. This test has been authorized by the FDA under an Emergency Use Authorization (EUA) for use by authorized laboratories. Testing performed on the Cswitch ID NOW utilizing NAAT. CT cervical spine wo con (No t yet reviewed by provider) Interpretation: Performing Lab: Notes/Report: [address] [address] [address] Scan Report Signed Patient: Sierra Michele MR#: [id number] [birth year] : 1970 Acct:[id number] Age/Sex: 54 / F ADM Date: 05/08/24 Loc: HO.ED Attending Dr: Ordering Physician: Dario Regan MD Date of Service: 05/08/24 Procedure(s): CT cervical spine wo IV con Accession Number(s): [id number] cc: David Harris MD; Dario Regan MD EXAMINATION: CT HEAD WITHOUT CONTRAST CT CERVICAL SPINE WITHOUT CONTRAST CLINICAL INFORMATION: Trauma. COMPARISON: September 30, 2020. TECHNIQUE: CT of the head and cervical spine were performed without intravenous contrast. Multiplanar reformats were rendered and reviewed. This CT examination was performed using dose optimization techniques as appropriate, variously including the following: *Automated exposure control *Adjustment of mA and/or kV according to patient size (this includes techniques or standardized protocols for targeted exams where dose is matched to indication/reason for exam; i.e. extremities or head) *Use of iterative reconstruction technique DLP: 1127 mGy-cm. 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 No intracranial hemorrhage, large acute infarction, or mass lesion is seen. No extra-axial collection is appreciated. Apart from hydrocephalus ex vacuo involving the occipital horn of the right lateral ventricle, the ventricles appear unremarkable in size and configuration without evidence of hydrocephalus. The visualized paranasal sinuses and mastoid air cells are clear. CT cervical spine: The vertebral body heights appear maintained. No cervical spine fracture is seen. The cervical alignment appears normal. The paraspinal soft tissues appear within normal limits. The partially imaged lung apices appear clear. CT/CT cervical spine wo IV con IMPRESSION: CT head: No acute intracranial finding. CT cervical spine: No cervical spine fracture or traumatic malalignment identified. Electronically signed by: Juan Jose Martinez MD 05/08/2024 01:42 PM [facility] Dictated By: Juan Jose Martinez Signed By: <Electronically signed by Juan Jose Martinez in OV> 05/08/24 1342 DD/ 1116 TD/TT: 05/08/24 1157 Icicle Machine Operator: [address] [address] [address] Scan Report Signed Patient: Sierra Michele MR#: [id number] 43 : 1970 Acct:[id number] Age/Sex: 54 / F ADM Date: 05/08/24 Loc: HO.ED Attending Dr: Ordering Physician: Dario Regan MD Date of Service: 05/08/24 Procedure(s): CT cervical spine wo IV con Accession Number(s): [id number] cc: David Harris MD; Dario Regan MD EXAMINATION: CT HEAD WITHOUT CONTRAST CT CERVICAL SPINE WITHOUT CONTRAST CLINICAL INFORMATION: Trauma. COMPARISON: September 30, 2020. TECHNIQUE: CT of the head and cervical spine were performed without intravenous contrast. Multiplana r reformats were rendered and reviewed. This CT examination was performed using dose optimization techniques as appropriate, various ly including the following: *Automated exposure control *Adjustment of mA and/or kV according to patient size (this includes techniques or standardized protocols for targeted exams where dose is matched to indication/reason for exam; i.e. extremities or head) *Use of iterative reconstruction technique DLP: 1127 mGy-cm. 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 No intracranial hemorrhage, large acute infarction, or mass lesion is seen. No extra-axial collection is appreciated. Apart from hydrocephalus e x vacuo involving the occipital horn of the right lateral ventricle, t he ventricles appear unremarkable in size and configuration withou t evidence of hydrocephalus. The visualized paranasal sinuses and mastoid air cells are clear. CT cervical spine: The vertebral body heights appear maintained. No cervical spine fracture is seen. Th e cervical alignment appears normal. The paraspinal soft tissues appear within normal limits. The partially imaged lung apices appear clear. CT/CT cervical spine wo IV con IMPRESSION: CT head: No acute intracrania l finding. CT cervical spine: No cervical spine fracture or traumatic malalignment identified. Electronically salo d by: Juan Jose Martinez MD 05/08/2024 01:42 PM [facility] Dictated By: Juan Jose Martinez Signed By: <Electronically signed by Juan Jose Martinez in OV> 05/08/24 1342 DD/ 1116 TD/TT: 05/08/24 1157 Icicle Machine Operator: CT head/brain wo con (Not ye t reviewed by provider) Interpretation: Performing Lab: Notes/Report: [address] [address] [address] Scan Report Signed Patient: Sierra Michele MR#: [id number] [birth year] : 1970 Acct:[id number] Age/Sex: 54 / F ADM Date: 05/08/24 Loc: HO.ED Attending Dr: Ordering Physician: Dario Regan MD Date of Service: 05/08/24 Procedure(s): CT head/brain wo IV con Accession Number(s): [id number] cc: David Harris MD; Dario Regan MD EXAMINATION: CT HEAD WITHOUT CONTRAST CT CERVICAL SPINE WITHOUT CONTRAST CLINICAL INFORMATION: Trauma. COMPARISON: September 30, 2020. TECHNIQUE: CT of the head and cervical spine were performed without intravenous contrast. Multiplanar reformats were rendered and reviewed. This CT examination was performed using dose optimization techniques as appropriate, variously including the following: *Automated exposure control *Adjustment of mA and/or kV according to patient size (this includes techniques or standardized protocols for targeted exams where dose is matched to indication/reason for exam; i.e. extremities or head) *Use of iterative reconstruction technique DLP: 1127 mGy-cm. 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 No intracranial hemorrhage, large acute infarction, or mass lesion is seen. No extra-axial collection is appreciated. Apart from hydrocephalus ex vacuo involving the occipital horn of the right lateral ventricle, the ventricles appear unremarkable in size and configuration without evidence of hydrocephalus. The visualized paranasal sinuses and mastoid air cells are clear. CT cervical spine: The vertebral body heights appear maintained. No cervical spine fracture is seen. The cervical alignment appears normal. The paraspinal soft tissues appear within normal limits. The partially imaged lung apices appear clear. CT/CT head/brain wo IV con IMPRESSION: CT head: No acute intracranial finding. CT cervical spine: No cervical spine fracture or traumatic malalignment identified. Electronically signed by: Juan Jose Martinez MD 05/08/2024 01:42 PM EST Dictated By: Juan Jose Martinez Signed By: <Electronically signed by Juan Jose Martinez in OV> 05/08/24 1342 DD/ 1116 TD/TT: 05/08/24 1157 Icicle Machine Operator: [place] [id number] CT Scan Report Signed Patient: Sierra Michele MR#: [id number] [birth year] : 1970 Acct:[id number] Age/Sex: 54 / F ADM Date: 05/08/24 Loc: HO.ED Attending Dr: Ordering Physician: Dario Regan MD Date of Service: 05/08/24 Procedure(s): CT head/brain wo IV con Accession Number(s): [id number] cc: David Harris MD; Dario Regan MD EXAMINATION: CT HEAD WITHOUT CONTRAST CT CERVICAL SPINE WITHOUT CONTRAST CLINICAL INFORMATION: Trauma. COMPARISON: September 30, 2020. TECHNIQUE: CT of the head and cervical spine were performed without intravenous contrast. Multiplana r reformats were rendered and reviewed. This CT examination was performed using dose optimization techniques as appropriate, various ly including the following: *Automated exposure control *Adjustment of mA and/or kV according to patient size (this includes techniques or standardized protocols for targeted exams where dose is matched to indication/reason for exam; i.e. extremities or head) *Use of iterative reconstruction technique DLP: 1127 mGy-cm. 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 No intracranial hemorrhage, large acute infarction, or mass lesion is seen. No extra-axial collection is appreciated. Apart from hydrocephalus e x vacuo involving the occipital horn of the right lateral ventricle, t he ventricles appear unremarkable in size and configuration withou t evidence of hydrocephalus. The visualized paranasal sinuses and mastoid air cells are clear. CT cervical spine: The vertebral body heights appear maintained. No cervical spine fracture is seen. Th e cervical alignment appears normal. The paraspinal soft tissues appear within normal limits. The partially imaged lung apices appear clear. CT/CT head/brain wo IV con IMPRESSION: CT head: No acute intracrania l finding. CT cervical spine: No cervical spine fracture or traumatic malalignment identified. Electronically salo d by: Juan Jose Martinez MD 05/08/2024 01:42 PM [facility] Dictated By: Juan Jose Martinez Signed By: <Electronically signed by Juan Jose Martinez in OV> 05/08/24 1342 DD/ 1116 TD/TT: 05/08/24 1157 Icicle Machine Operator: Reason For Referral Reason Consult and treat Lump under right foot x 3 weeks Diagnosis 1 Right foot pain (M79 .671) Diagnosis 2 Localized swelling, mass and lump, right lower limb (R22.41) Referral Organization David Harris III, MD Referring Provider First Name David Referring Provider Last Name Kimberly Referring Provider Speciality Internal M edicine Referred Provider TORO DALTON Referred Provider Specialty Podiatry General Notes Alan Naomied PARMAR 07/05/2023 03:01:34 PM > Referral faxed Referral Priority Stat Medications Medication SIG (Take, Route, Frequency, Duration) Notes Start Date End Date Status Nitroglycerin 0.4 MG 1 tablet under the tongue and allow to dissolve as needed. Take every 5 minutes up to 3 times if chest pain persists Sublingual Three times a day for 30 days Active Omeprazole 20 mg 1 Capsule Orally Yola ly 30 minutes before breakfast Active Divalproex Sodium ER 500 mg 1 Tablet Ora lly In the morning Active Doxepin HCl 10 mg 1 Capsule Orally at bed time Active Propranolol HCl 10 mg 1 Tablet Orally Tw ice a day on an empty stomach Active Phenytoin Sodium Extended 100 mg TAKE 3 CAPSULES BY MOUTH EVERY 12 HOURS for 30 Active Naproxen 500 mg 1 Tablet Orally Twic e a day Active Escitalopram Oxalate 10 MG 1 tablet Oral ly Once a day Active Magnesium Oxide -Mg Supplement 400 (240 Mg) MG 1 tablet with food Orally Once a day Active ALPRAZolam 1 MG 1 tablet Orally thre e times a day Active Triamcinolone Acetonide 0.1 % 1 application Externally Three times a day for 14 days Active Zolpidem Tartrate ER 12.5 MG 1 Tablet Orally At bed time As needed Active Zonisamide 100 mg 1 capsule orally twi ce a day Active Ketoconazole 2 % 1 application Rn Surgery ally Twice a day for 21 days Active Social History Tobacco Use: Social History Observation Description Date Details (start date - stop date) Former Smoker NA - NA Alcohol Screen Question Answer Notes Did you have a drink containing alcohol in the p ast year? No Points 0 Interpretation Negative Tobacco Control (Standard) Question Answer Notes Tobacco use: Former smoker Problems Problem Type SNOMED Code ICD Code Onset Dates Problem Status W/U Status Risk Notes Problem 6851267 Former smoker (Z87.891) Active confirmed She has been free of tobacco for 6 weeks. We discussed smoking cessation techniques. We formed a strategy to prevent relapse in times of stress and illness. Problem 214330086859722 Obesity (BMI 30.0-34.9) (E66.9) Active confirmed She has lost 9 pounds in her body mass index is now 32.6. We discussed she could continue weight loss at a rate of one half of a pound per week. Problem Epilepsy (83449361) Epilepsy (G40.909) Active confirmed She has had no seizures since her last visit. Comprehensive blood work has been ordered. No change in her medications has been made. She will follow up with neurology regularly. Problem 286995700 Chronic cluster headache, intractable (G44.021) Active confirmed We are going to refer her back to her neurologist for follow-up of the subarachnoid hemorrhage and the headaches to see if any novel agents can be employed. Problem 738278379 Low back pain (M54.5) Active confirmed She continues t o have chronic intermittent low back pain but will continue her current medication. Problem Gastroesophageal reflux disease without esophagitis (170598282) Gastroesophagea l reflux disease without esophagitis (K21.9) Active confirmed Her reflux symptoms are well controlled with omeprazole. She was continued on this medicine. Problem 581468064 Panic attacks (F41.0) Active confirmed She was referre d back to mental health and I have given her a trial of fluoxetine. She will continue the alprazolam and other medications. Problem Ataxia (94404696) Ataxia (R27.0) Active confirm ed Problem Depressive disorder (disorder) (83913738) Depression, unspecified depression type (F32.9) Active confirmed Her depression has been mild and she has been compliant with her medication. No change was necessary today. She is conducting all of the activities of daily life without impairment. She continues under the care of the mental health provider. She has a therapist, Becka. Problem 84691992 Sleep apnea in adult (G47.30) Active confirmed No change in her therapy was needed today. She denies daytime somnolence.She has not been using her CPAP due to some disruption in her home environment which is temporary. She plans to resume using it when she can. 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 Her Dilantin level was 3.1. She was reloaded. A repeat level has been ordered today. She was encouraged to stay in touch with the neurologist about the management of her epilepsy. Problem 197477798 AMOS III (cervical intraepithelial neoplasia grade III) with severe dysplasia (D06.9) Active confirmed She says that she is seeing the assembler dielectric heater at the recommended intervals. Problem 499785481 Arteriovenous malformation (Q27.30) Active confirmed The malformatio n was resected many years ago. Problem 80123963487465184 Right ovarian cyst (N83.201) Active confirmed This will be followed by the assembler dielectric heater. Problem 929132656 Blind left eye (H54.40) Active confirmed She reports no change in the vision in the right eye which she uses. I reiterated with her the necessity of seeing an automobile damage field appraiser at least annually to preserve the vision in the functioning eye. Problem 520250174373048 Left carpal tunnel syndrome (G56.02) Active confirmed Vital Signs Heart Rate 74 /min 04/17/2024 Temperature 97.5 degrees Fahrenheit 04/17/2024 Blood pressure diastolic 57 mm Hg 04/17/2024 Height 66 in 04/17/2024 Blood pressure systolic 134 mm Hg 04/17/2024 Weight 202 lbs 04/17/2024 BMI 32.6 kg/m2 04/17/2024 Encounters Encounter Location Date Provider Diagnosis David Harris III, MD [address] [place] [address] [place] [address] 07/04/2023 David Harris Epilepsy G40.909 ; S leep apnea in adult G47.30 ; Low back pain M54.5 ; Gastroesophageal reflux disease without esophagitis K21.9 ; Depression, unspecified depression type F32.9 ; Arteriovenous malformation Q27.30 ; AMOS III (cervical intraepithelial neoplasia grade III) with severe dysplasia D06.9 ; Blind left eye H54.40 ; Obesity (BMI 30.0-34.9) E66.9 and Subcutaneous mass R22.9 David Harris III, MD [address] [place] [address] [place] [address] 07/11/2023 David Harris Epilepsy G40.909 ; Depression, unspecified depression type F32.9 ; Gastroesophageal reflux disease without esophagitis K21.9 ; Sleep apnea in adult G47.30 ; Low back pain M54.5 ; Blind left eye H54.40 ; Chronic cluster headache, intractable G44.021 ; Former smoker Z87.891 ; Obesity (BMI 30.0-34.9) E66.9 and Left foot pain M79.672 David Harris III, MD [address] [place] [address] [place] [address] 01/03/2024 David Harris Epilepsy G40.909 ; Gastroesophageal reflux disease without esophagitis K21.9 ; Sleep apnea in adult G47.30 ; Depression, unspecified depression type F32.9 ; Arteriovenous malformation Q27.30 ; AMOS III (cervical intraepithelial neoplasia grade III) with severe dysplasia D06.9 ; Blind left eye H54.40 ; Former smoker Z87.891 and Obesity (BMI 30.0-34.9) E66.9 David Harris III, MD [address] [place] [address] [place] [address] 01/18/2024 David Harris Epilepsy G40.909 ; Urinary tract infection, site not specified N39.0 ; Sleep apnea in adult G47.30 ; Gastroesophageal reflux disease without esophagitis K21.9 ; Depression, unspecified depression type F32.9 ; Tobacco dependence F17.200 and Chronic cluster headache, intractable G44.021 David Harris III, MD [address] [place] [address] [place] [address] 04/17/2024 David Harris Epilepsy G40.909 ; Obesity (BMI 30.0-34.9) E66.9 ; Depression, unspecified depression type F32.9 ; Gastroesophageal reflux disease without esophagitis K21.9 and Sleep apnea in adult G47.30 David Harris III, MD [address] [place] [address] [place] [address] 07/06/2023 David Harris III, MD [address] [place] [address] [place], [place] [address] 01/03/2024 David Harris III, MD [address] [place] [address] [place] [address] 05/07/2024 David Harris III, MD [address] [place] [address] [place] [address] 05/09/2024 David Harris Assessments Encounter Date Diagnosis (ICD Code) Assessment Notes T reatment Notes Treatment Clinical Notes 07/04/2023 Epilepsy (ICD-10 - G40.909) She has had no seizures since her last visit. Comprehensive blood work has been ordered. Her phenytoin level is 19 which is therapeutic. 07/04/2023 Sleep apnea in adult (ICD-10 - G47.30) She remains asymptomatic at this time. 07/11/2023 Epilepsy (ICD-10 - G40.909) She has had no seizures since her last visit. Comprehensive blood work has been ordered. Her phenytoin level is 19 which is therapeutic. 8. Smell which no one else can smell may be a manifestation of epilepsy. 07/11/2023 Depression, unspecified depression type (ICD-10 - F32.9) Her depression has been mild and she has been compliant with her medication. No change was necessary today. She is conducting all of the activities of daily life without impairment. She continues under the care of the mental health provider. She has a therapist, Becka. 01/03/2024 Epilepsy (ICD-10 - G40.909) She has had no seizures since her last visit. Comprehensive blood work has been ordered. Her phenytoin level is 19 which is therapeutic. 8. Smell which no one else can smell may be a manifestation of epilepsy. 01/03/2024 Gastroesophageal reflux disease without esophagitis (ICD-10 - K21.9) Her reflux symptoms are well controlled with omeprazole. She was continued on this medicine. 01/18/2024 Epilepsy (ICD-10 - G40.909) She has had no seizures since her last visit. Comprehensive blood work has been ordered. Her phenytoin level is 19 which is therapeutic. 8. Smell which no one else can smell may be a manifestation of epilepsy. 01/18/2024 Urinary tract infection, site not specified (ICD-10 - N39.0) A urine culture is pending to evaluate the pyuria. 04/17/2024 Obesity (BMI 30.0-34.9) (ICD-10 - E66.9) She has lost 9 pounds in her body mass index is now 32.6. We discussed she could continue weight loss at a rate of one half of a pound per week. 04/17/2024 Epilepsy (ICD-10 - G40.909) She has had no seizures since her last visit. Comprehensive blood work has been ordered. No change in her medications has been made. She will follow up with neurology regularly. 07/04/2023 Low back pain (ICD-1 0 - M54.5) She continues to have chronic intermittent low back pain but will continue her current medication. 07/11/2023 Gastroesophageal reflux disease without esophagitis (ICD-10 - K21.9) Her heartburn has been well controlled with [id number] medications. She has been compliant with the recommendations. 01/03/2024 Sleep apnea in adult (ICD-10 - G47.30) No change in her therapy was needed today. She denies daytime somnolence. 01/18/2024 Sleep apnea in adult (ICD-10 - G47.30) No change in her therapy was needed today. She denies daytime somnolence. 04/17/2024 Depression, unspecified depression type (ICD-10 - F32.9) Her depression has been mild and she has been compliant with her medication. No change was necessary today. She is conducting all of the activities of daily life without impairment. She continues under the care of the mental health provider. She has a therapist, Becka. 07/04/2023 Gastroesophageal reflux disease without esophagitis (ICD-10 - K21.9) Her heartburn has been well controlled with [id number] medications. She has been compliant with the recommendations. 07/11/2023 Sleep apnea in adult (ICD-10 - G47.30) She remains asymptomatic at this time. 01/03/2024 Depression, unspecified depression type (ICD-10 - F32.9) Her depression has been mild and she has been compliant with her medication. No change was necessary today. She is conducting all of the activities of daily life without impairment. She continues under the care of the mental health provider. She has a therapist, Becka. 01/18/2024 Gastroesophageal reflux disease without esophagitis (ICD-10 - K21.9) Her reflux symptoms are well controlled with omeprazole. She was continued on this medicine. 04/17/2024 Gastroesophageal reflux disease without esophagitis (ICD-10 - K21.9) Her reflux symptoms are well controlled with omeprazole. She was continued on this medicine. 07/04/2023 Depression, unspecified depression type (ICD-10 - F32.9) Her depression has been mild and she has been compliant with her medication. No change was necessary today. She is conducting all of the activities of daily life without impairment. She continues under the care of the mental health provider. She has a therapist, Becka. 07/11/2023 Low back pain (ICD-1 0 - M54.5) She continues to have chronic intermittent low back pain but will continue her current medication. 01/03/2024 Arteriovenous malformation (ICD-10 - Q27.30) The malformation was resected many years ago. 01/18/2024 Depression, unspecified depression type (ICD-10 - F32.9) Her depression has been mild and she has been compliant with her medication. No change was necessary today. She is conducting all of the activities of daily life without impairment. She continues under the care of the mental health provider. She has a therapist, Becka. 04/17/2024 Sleep apnea in adult (ICD-10 - G47.30) No change in her therapy was needed today. She denies daytime somnolence.She has not been using her CPAP due to some disruption in her home environment which is temporary. She plans to resume using it when she can. 07/04/2023 Arteriovenous malformation (ICD-10 - Q27.30) The malformation was resected many years ago. 07/11/2023 Blind left eye (ICD- 10 - H54.40) She reports no change in the vision in the right eye which she uses. I reiterated with her the necessity of seeing an automobile damage field appraiser at least annually to preserve the vision in the functioning eye. 01/03/2024 AMOS III (cervical intraepithelial neoplasia grade III) with severe dysplasia (ICD-10 - D06.9) She says that she is seeing the assembler dielectric heater at the recommended intervals. 01/18/2024 Tobacco dependence (ICD-10 - F17.200) I strongly recommended smoking cessation and made her aware of [facility] [place] and the various smoking cessation programs in the area. I have described patches and Chantix. She will consider these options. 07/04/2023 AMOS III (cervical intraepithelial neoplasia grade III) with severe dysplasia (ICD-10 - D06.9) She says that she is seeing the assembler dielectric heater at the recommended intervals. 07/11/2023 Chronic cluster headache, intractable (ICD-10 - G44.021) We are going to refer her back to her neurologist for follow-up of the subarachnoid hemorrhage and the headaches to see if any novel agents can be employed. 01/03/2024 Blind left eye (ICD- 10 - H54.40) She reports no change in the vision in the right eye which she uses. I reiterated with her the necessity of seeing an automobile damage field appraiser at least annually to preserve the vision in the functioning eye. 01/18/2024 Chronic cluster headache, intractable (ICD-10 - G44.021) We are going to refer her back to her neurologist for follow-up of the subarachnoid hemorrhage and the headaches to see if any novel agents can be employed. 07/04/2023 Blind left eye (ICD- 10 - H54.40) She reports no change in the vision in the right eye which she uses. I reiterated with her the necessity of seeing an automobile damage field appraiser at least annually to preserve the vision in the functioning eye. 07/11/2023 Former smoker (ICD-1 0 - Z87.891) She has been free of tobacco for 6 weeks. We discussed smoking cessation techniques. We formed a strategy to prevent relapse in times of stress and illness. 01/03/2024 Former smoker (ICD-1 0 - Z87.891) She has been free of tobacco for 6 weeks. We discussed smoking cessation techniques. We formed a strategy to prevent relapse in times of stress and illness. 07/04/2023 Obesity (BMI 30.0-34.9) (ICD-10 - E66.9) She has lost 10 pounds. . We reviewed her weight loss strategy. She will lose weight at a rate of one half of a pound per week through a diet restricted in fat calories and sodium. 07/11/2023 Obesity (BMI 30.0-34.9) (ICD-10 - E66.9) She has lost 10 pounds. . We reviewed her weight loss strategy. She will lose weight at a rate of one half of a pound per week through a diet restricted in fat calories and sodium. 01/03/2024 Obesity (BMI 30.0-34.9) (ICD-10 - E66.9) She has lost 10 pounds. . We reviewed her weight loss strategy. She will lose weight at a rate of one half of a pound per week through a diet restricted in fat calories and sodium. 07/04/2023 Subcutaneous mass (ICD-10 - R22.9) Subcutaneous mass on her left foot is extremely painful and of uncertain etiology. She has been referred to podiatry. 07/11/2023 Left foot pain (ICD- 10 - M79.672) I reinforced with her that she needs to see the civil preparedness officer. She will call my office afterwards and the [facility] with anything. Plan Of Treatment Pending Test Test Name Order Date PROFILE, FASTING (COMPREHENSIVE METABOLI C) 04/17/2024 PROFILE, FASTING (COMPREHENSIVE METABOLI C) 03/23/2019 PROFILE, FASTING (COMPREHENSIVE METABOLI C) 08/08/2018 PROFILE, FASTING (COMPREHENSIVE METABOLI C) 01/11/2018 PROFILE, FASTING (COMPREHENSIVE METABOLI C) 04/27/2023 PROFILE, RANDOM (COMPREHENSIVE METABOLIC ) 01/03/2024 LIPID PANEL 03/23/2019 LIPID PANEL 08/08/2018 LIPID PANEL 01/11/2018 FREE T4 (FT4) 03/23/2019 FREE T4 (FT4) 01/11/2018 TSH (THYROID STIMULATING HORMONE) 2018 TSH (THYROID STIMULATING HORMONE) 2017 FERRITIN 01/11/2018 VALPROIC ACID (VPA, DEPAKOTE) 01/03/2024 VALPROIC ACID (VPA, DEPAKOTE) 08/08/2018 VALPROIC ACID (VPA, DEPAKOTE) 03/23/2019 CBC w DIFF 04/17/2024 CBC w DIFF 01/11/2018 CBC w DIFF 01/03/2024 CBC w DIFF 08/08/2018 CBC w DIFF 04/27/2023 CBC w DIFF 03/23/2019 SED RATE (ESR) 03/23/2019 PHENYTOIN, FREE/UNBOUND 03/23/2019 PHENYTOIN, FREE/UNBOUND 01/11/2018 PAP SMEAR (THIN PREP) 05/08/2018 XR CHEST 2 VIEW PA & LAT 08/30/2018 VITAMIN D 25-OH TOTAL 01/11/2018 Complete Blood Count Auto Diff Urinalysis 03/21/2024 Urinalysis 01/18/2024 Basic Metabolic Panel 05/08/2024 Troponin-I High Sensitivity 05/08/2024 Lipid Panel 04/17/2024 Urine Culture 03/21/2024 Urine Culture 01/18/2024 CT cervical spine wo con 05/08/2024 CT head/brain wo con 05/08/2024 XR lumbar spine 2-3V 07/21/2021 UA CC w/rflx Micro + Cult 05/08/2024 COVID-19 ID NOW ([place]) 05/08/2024 Next Appt Details Provider Name:David Harris, 05/28/2024 02:30:00 PM, [address] [place] [address] [address], [place], [address], Provider Name:David Harris, 08/15/2024 10:30:00 AM, [address] [place] [address] [address], [place], [address], Provider Name:David Harris, 01/21/2025 02:00:00 PM, [address] [place] [address] [address], [place], [address], Insurance Providers Payer Name Payer Address Payer Phone Subscriber Number Group Number Insured Name Patient Relationship to Insured Coverage Start Date Coverage End Date MEDICAID [address] [place] TH[place] [id number] Sierra Michele Self - patient is the insured Medical (General) History Medical History History ICD Code Anxiety F41.9 Seizure disorder G40.909 Mild obesity E66.9 Gastroesophageal reflux disease, esophag itis presence not specified K21.9 Arthritis M19.90 Low back pain, unspecified b ack pain laterality, unspecified chronicity, with sciatica presence unspecified M54.5 right parieto-occipital lobe AVM resecte d 1999, [facility] [place] chronic cystitis but biopsy 1995 AMOS-III, 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 tobacco dependence 2014 2.4 cm right ovarian cyst 2018. Atypical chest pain, negative perf usion test depression, treated at [facility], has a prescriber chronic dermatitis, Dr. Toney, dermatolo gist, [facility] group sleep apnea carpal tunnel syndrome, left overweight status migrainosus obstructive sleep apnea April 2020 left homonymous hemianopsia history of panic attacks Surgical History Surgery Date(Month/Year) right occipital craniotomy re: AVM malfo rmation 05/1999 LEEP procedure 1999 endometrial biopsy, proliferative endome trium 2014 colonoscopy tubal ligation No history Hospitalization History Reason Date(Month/Year) [facility] [place], craniotomy for AVM 1999 No history
--- OUTSIDE RECORDS SUMMARY | 2024-05-09 19:17 | XMS_ITS ---
Author Organization David Harris III, MD Address [address] [place] [address] Care Team Providers Care Document Design Specialist Name Role Phone David Harris Primary Care Provider Allergies Allergen (clinical drug ingredient) Drug/Non Drug Allergy documented on EMR Reaction Allergy Type Onset Date Status No Known Drug Allergy Unknown Drug Allergy Active REASON FOR VISIT Ataxia, Peripheral edema, Sleep apnea, Depression, GERD, Epilepsy, Obesity, Her Medications Medication SIG (Take, Route, Frequency, Duration) Notes Start Date End Date Status ALPRAZolam 1 MG 1 tablet Orally thre e times a day Active Zolpidem Tartrate ER 12.5 MG 1 Tablet Orally At bed time As needed Active Zonisamide 100 mg 1 capsule orally twi ce a day Active Ketoconazole 2 % 1 application Registered Nurse ally Twice a day for 21 days Active Phenytoin Sodium Extended 100 mg 3 Capsules Orally every 12 hours Active Omeprazole 20 mg 1 Capsule Orally Yola ly 30 minutes before breakfast Active Divalproex Sodium ER 500 mg 1 Tablet Ora lly In the morning Active Doxepin HCl 10 mg 1 Capsule Orally at bed time Active Propranolol HCl 10 mg 1 Tablet Orally Tw ice a day on an empty stomach Active Magnesium Oxide -Mg Supplement 400 (240 Mg) MG 1 tablet with food Orally Once a day Active Naproxen 500 mg 1 Tablet Orally Twic e a day Active Escitalopram Oxalate 10 MG 1 tablet Oral ly Once a day Active Nitroglycerin 0.4 MG as directed Sublingual Active Triamcinolone Acetonide 0.1 % 1 application Externally Three times a day for 14 days Active Social History Tobacco Use: Social History Observation Description Date Details (start date - stop date) Former Smoker NA - NA Tobacco Control (Standard) Question Answer Notes Tobacco use: Former smoker Problems Problem Type SNOMED Code ICD Code Onset Dates Problem Status W/U Status Risk Notes Problem Ataxia () Ataxia (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30 Assessments Encounter Date Diagnosis (ICD Code) Assessment Notes Treat ment Notes Treatment Clinical Notes 04/17/2024 Epilepsy (ICD-10 - G40.909) She has had no seizures since her last visit. Comprehensive blood work has been ordered. No change in her medications has been made. She will follow up with neurology regularly. 04/17/2024 Obesity (BMI 30.0-34.9) (ICD-10 - E66.9) She has lost 9 pounds in her body mass index is now 32.6. We discussed she could continue weight loss at a rate of one half of a pound per week. 04/17/2024 Depression, unspecified depression type (ICD-10 - F32.9) Her depression has been mild and she has been compliant with her medication. No change was necessary today. She is conducting all of the activities of daily life without impairment. She continues under the care of the mental health provider. She has a therapist, Becka. 04/17/2024 Gastroesophageal reflux disease without esophagitis (ICD-10 - K21.9) Her reflux symptoms are well controlled with omeprazole. She was continued on this medicine. 04/17/2024 Sleep apnea in adult (ICD-10 - G47.30) No change in her therapy was needed today. She denies daytime somnolence.She has not been using her CPAP due to some disruption in her home environment which is temporary. She plans to resume using it when she can. Plan Of Treatment Medication Medication Name Sig Start Date Stop Date Notes ALPRAZolam 1 MG 1 tablet Orally thre e times a day Zolpidem Tartrate ER 12.5 MG 1 Tablet Orally At bed time Zonisamide 100 mg 1 capsule orally twice a day Ketoconazole 2 % 1 application Registered Nurse ally Twice a day for 21 days Phenytoin Sodium Extended 10 0 mg 3 Capsules Orally every 12 hours Omeprazole 20 mg 1 Capsule Orally Yola ly 30 minutes before breakfast Divalproex Sodium ER 500 mg 1 Tablet Ora lly In the morning Doxepin HCl 10 mg 1 Capsule Orally at bed time Propranolol HCl 10 mg 1 Tablet Orally Tw ice a day on an empty stomach Magnesium Oxide -Mg Suppleme nt 400 (240 Mg) MG 1 tablet with food Orally Once a day Naproxen 500 mg 1 Tablet Orally Twice a day Escitalopram Oxalate 10 MG 1 tablet Orally Once a day Nitroglycerin 0.4 MG as directed Sublingual Triamcinolone Acetonide 0.1 % 1 applicat ion Externally Three times a day for 14 days Pending Test Test Name Order Date PROFILE, FASTING (COMPREHENSIVE METABOLI C) 04/17/2024 CBC w DIFF 04/17/2024 Lipid Panel 04/17/2024 Next Appt Details Follow Up: 4 Months, Reason: ov Provider Name:David Harris, 05/28/2024 02:30:00 PM, [address] [place] [address] [address], [place], [address], Provider Name:David Harris, 08/15/2024 10:30:00 AM, [address] [place] [address] [address], [place], [address], Provider Name:David Harris, 01/21/2025 02:00:00 PM, [address] [place] [address] [address], [place], [address], Progress Notes * Lisset VARELAOB: 8 (54 yo F)Acc No.[id number]:04/17/2024 Progress Notes Patient:?Sierra VARELA Provider:?David Harris MD :1970???Age:54 Y???Sex:Female D ate:04/17/2024 Address[address], [id number] Subjective: * Chief Complaints: * ???AtaxiaPeripheral edemaSle ep apneaDepressionGERDEpilepsyObesityHer * HPI: ???COVID-19 Screening:?Questions?Have you experienced fever, chills, cough, sore throat, shortness of breath, difficulty breathing, muscle aches, loss of taste or smell??No ?Have you been exposed to the virus within the last 10 days??No ?Have you travelled internationally in the last 10 days??No ?Have you been exposed to COVID-19 in the past??No ???:? The patient, a 54-year-old female, has been experiencing headaches and has undergone an endometrial biopsy, which was negative. She has been diagnosed with sleep apnea and has a CPAP machine, but she has not been using it due to construction in her living area. She has also been experiencing vision problems, being unable to see fingers held up in front of her. The patient has also reported weight loss of 9 lbs and good blood pressure. She has been experiencing swelling in her feet, which she manages by elevating them. Her heart rate is slow and regular. * ROS:?General/Constitutional:?pain?only normal aches and pains.?Chills?denies.?Fatigue?admits.?Fever?denies.?Admits?Weight loss.?ENT:?Decreased hearing?denies.?Respiratory:?Cough?denies.?Cardiovascular:?Chest pain with exertion?denies.?Dyspnea on exertion?denies.?Shortness of breath?denies.?Gastrointestinal:?Constipation?occasional.?Decreased appetite?denies.?Diarrhea?denies.?Heartburn?occasional.?Nausea?denies.?Rectal bleeding?denies.?Vomiting?denies.?Hematology:?bruising?denies.?petechiae?denies.?Swollen glands?none have been noted.?Genitourinary:?Frequent urination?at night.?Musculoskeletal:?Muscle aches?denies.?Painful joints?denies.?Sciatica?denies.?Weakness?denies.?Skin:?Itching?denies.?Rash?denies.?Skin lesion(s)?denies.?Neurologic:?Difficulty speaking?denies.?Dizziness?denies.?Headache?denies.?Low back pain?denies.?Psychiatric:?Depressed mood?denies.? * Medical History:? * Surgical History:?right occi pital craniotomy re: AVM malformation 05/1999LEEP procedure 1999endometrial biopsy, proliferative endometrium 2015colonoscopy tubal ligation No history * Hospitalization/Major Diagno stic Procedure:?[facility], craniotomy for AVM 1999No history * Family History:?Father: rico e 92 yrs, Hypertension, diagnosed with HTN.?Mother: alive 85 yrs, Osteoporosis, osteoarthritis, adult onset diabetes, depression, diagnosed with DM, HTN.?3 brother(s) , 5 sister(s) . 2 son(s) , 2 daughter(s) - healthy. .? A maternal grandmother is diabetic. One sister has rheumatoid arthritis and one sister has diabetes. She has 2 healthy sons and 2 healthy daughters. * Social History:?Tobacco Use:?Tobacco Control (Standard)?Tobacco use:?Former smoker ???She was born in [place]. She has been to [place] for 20 years. She has 4 children and 7 grandchileren. * Medications:?TakingNitroglyc isabella 0.4 MG Tablet Sublingual as directed Sublingual Triamcinolone Acetonide 0.1 % Cream 1 application Externally Three times a day for 14 days Naproxen 500 mg Tablet 1 Tablet Orally Twice a day Magnesium Oxide -Mg Supplement 400 (240 Mg) MG Tablet 1 tablet with food Orally Once a day Doxepin HCl 10 mg Capsule 1 Capsule Orally at bed time Propranolol HCl 10 mg Tablet 1 Tablet Orally Twice a day on an empty stomach Omeprazole 20 mg Capsule Delayed Release 1 Capsule Orally Daily 30 minutes before breakfast Divalproex Sodium ER 500 mg Tablet Extended Release 24 Hour 1 Tablet Orally In the morning Phenytoin Sodium Extended 100 mg Capsule 3 Capsules Orally every 12 hours Zonisamide 100 mg Capsule 1 capsule orally twice a day Ketoconazole 2 % Cream 1 application Externally Twice a day for 21 days ALPRAZolam 1 MG Tablet 1 tablet Orally three times a day Zolpidem Tartrate ER 12.5 MG Tablet Extended Release 1 Tablet Orally At bed time As neededEscitalopram Oxalate 10 MG Tablet 1 tablet Orally Once a day Medication List reviewed and reconciled with the patientTaking Nitroglycerin 0.4 MG Tablet Sublingual as directed Sublingual Taking Triamcinolone Acetonide 0.1 % Cream 1 application Externally Three times a day for 14 days Taking Naproxen 500 mg Tablet 1 Tablet Orally Twice a day Taking Magnesium Oxide -Mg Supplement 400 (240 Mg) MG Tablet 1 tablet with food Orally Once a day Taking Doxepin HCl 10 mg Capsule 1 Capsule Orally at bed time Taking Propranolol HCl 10 mg Tablet 1 Tablet Orally Twice a day on an empty stomach Taking Omeprazole 20 mg Capsule Delayed Release 1 Capsule Orally Daily 30 minutes before breakfast Taking Divalproex Sodium ER 500 mg Tablet Extended Release 24 Hour 1 Tablet Orally In the morning Taking Phenytoin Sodium Extended 100 mg Capsule 3 Capsules Orally every 12 hours Taking Zonisamide 100 mg Capsule 1 capsule orally twice a day Taking Ketoconazole 2 % Cream 1 application Externally Twice a day for 21 days Taking ALPRAZolam 1 MG Tablet 1 tablet Orally three times a day Taking Zolpidem Tartrate ER 12.5 MG Tablet Extended Release 1 Tablet Orally At bed time As neededTaking Escitalopram Oxalate 10 MG Tablet 1 tablet Orally Once a day Medication List reviewed and reconciled with the patient * Allergies:?No Known Drug All ergyno[Allergies Verified] Objective: * Vitals:?Ht: 66, Wt: 202, BMI :32.6, BP: 134/57, HR: 74, Temp: 97.5, Wt-k.63. * ???Past Orders: Lab:URINE DIP STICK * Collection Date 01/18/2024 05/08/2018 Collection Time 02:10 PM Order Date 01/18/2024 05/08/2018 SG 1.010 (Ref Range: 1.005 - 1.025) 1.015 pH 6.5 (Ref Range: 5.0 - 9.0) 6.5 BALWINDER 15 (Ref Range: Negative -) neg NIT neg (Ref Range: Negative -) neg PRO + (Ref Range: Negative - Trace) neg GLU NEG (Ref Range: Negative -) normal KET + (Ref Range: Negative -) neg UBG 0.2 (Ref Range: 0.1 - 1.8) normal CARMINE NEG (Ref Range: 0.2 - 1.3) neg BLD LARGE +++ (Ref Range: Negative -) trace Menstrating no no ???Lab:PAP + HPV E6/E7 rfx 18/45 (Order Date - 02/16/2024) (Collection Date & Time - 02/16/2024 12:46 PM)?ValueReference Range?HPV 16 RNATNP- ?HPV 18/45 RNATNP-?HPV mRNA E6/E7Not DetectedNot Detected - ?Thin Prep SourceSEE NOTE-?Report StatusTNP-?Clinical InformationSEE NOTE-?LMPSEE NOTE-?Previous PAPSEE NOTE- ?Previous Biopsy DateSEE NOTE-?State of AdequacySEE NOTE- ?General CategorizationSEE NOTE-?Interpretation/ResultSEE NOTE- ?Cytology CommentSEE NOTE-?CytotechnologistSEE NOTE-?Review CytotechnologistTNP-?PathologistTNP-?PAP InfectionSEE NOTE- ?See NoteSEE NOTE- ???Lab:Pathology (Order Date - 02/27/2024) (Collection Date & Time - 02/27/2024 10:20 AM) * Examination: ???General Examination: ?GENERAL APPEARANCE:?pleasant, well nourished, well developed, in no acute distress, calm and relaxed, obese, woman.?HEAD:?atraumatic, normocephalic, Craniotomy scar well healed.?EYES:?eomi, perrla, anicteric, conjugate.?EARS:?normal.?NOSE:?septum intact.?ORAL CAVITY:?normal, unremarkable.?NECK/THYROID:?no jugular venous distention, no carotid bruit, thyroid normal.?LYMPH NODES:?no enlarged lymph nodes,spleen normal.?SKIN:?no suspicious lesions, anicteric.?HEART:?no clicks, gallops, murmurs, or rubs, regular rhythm, S1, S2 normal, no s3, or vascular bruits.?LUNGS:?clear to auscultation .?BREASTS:?Not examined.?ABDOMEN:?bowel sounds normal, no ascites, no organomegaly, no mass, centripital obesity.?RECTAL EXAM:?not examined.?MUSCULOSKELETAL:?extremities unremarkable, no clubbing, cyanosis or edema.?PERIPHERAL PULSES:?normal.?NEUROLOGIC:?alert and oriented, cranial nerves 2-12 grossly intact, deep tendon reflexes 2+ symmetrical, motor strength normal upper and lower extremities, sensory exam intact.?PSYCH:?alert, oriented.? Assessment: * Assessment: 1.?Epilepsy - G40.909 (Prima ry)???Notes :She has had no seizures since her last visit. Comprehensive blood work has been ordered. No change in her medications has been made.? She will follow up with neurology regularly.???2.?Obesity (BMI 30.0- 34.9) - E66.9???Notes :She has lost 9 pounds in her body mass index is now 32.6.? We discussed she could continue weight loss at a rate of one half of a pound per week.???3.?Depression, unspecified depression type - F32.9???Notes :Her depression has been mild and she has been compliant with her medication. No change was necessary today. She is conducting all of the activities of daily life without impairment. She continues under the care of the mental health provider. She has a therapist, Becka.???4.?Gastroesophageal reflux disease without esophagitis - K21.9???Notes :Her reflux symptoms are well controlled with omeprazole. She was continued on this medicine.???5.?Sleep apnea in adult - G47.30???Notes :No change in her therapy was needed today. She denies daytime somnolence.She has not been using her CPAP due to some disruption in her home environment which is temporary.? She plans to resume using it when she can.??? Plan: * Treatment: 2.?Obesity (BMI 30.0-34.9)?LAB: PROFILE, FASTING (COMPREHENSIVE METABOLIC) ?LAB: CBC w DIFF ?LAB: Lipid Panel * Procedure Codes:? * Preventive Medicine:? ??Counseling:?Care goal follow-up plan:?Counseling for abnormal BMI given?Yes ?Above Normal BMI Follow-up?Dietary management education, guidance, and counseling, Dietary needs education, Exercise promotion: strength training, Exercise promotion: stretching, Feeding regime, Giving encouragement to exercise, Lifestyle education regarding diet, Nutrition / feeding management, Nutrition therapy, Prescribed activity/exercise education, Prescribed diet education, Prescribed dietary intake, Special diet education, Weight monitoring , Intervention, Order not done: Medical or Other reason not done ?Smoking/Tobacco Use?Patient counseled on the dangers of tobacco use and urged to quit.?04/17/2024 * Follow Up:?4 Months (Reason: ov) * Images: * Sign off status: Completed true * Provider:?David Harris MD Date:?03/30 Generated for Printi ng/Faajg/eTransmitting on:?05/09/2024 07:16 PM EST History and Physical Notes * HPI (History of Present Illness) Category Sub-Category Detail Notes COVID-19 Screening Questions Have you had any new onset fever, chills, cough, congestion, sore throat, shortness of breath, muscle aches?: No Have you been exposed to the virus withi n the last 10 days?: No Have you travelled internationally in e last 10 days?: No Have you been exposed to COVID-19 in the past?: No Examination Category Sub-Category Detail Notes General Examination GENERAL APPEARANCE: pleasant , well nourished, well developed, in no acute distress, calm and relaxed, obese, woman HEAD: atraumatic, normocep halic, Craniotomy scar well healed EYES: eomi, perrla, anicte elizabeth, conjugate EARS: normal NOSE: septum intact NECK/THYROID: no jugular venous di stention, no carotid bruit, thyroid normal HEART: no clicks, gallops, murmurs, or rubs, regular rhythm, S1, S2 normal, no s3, or vascular bruits LUNGS: clear to auscultatio n ABDOMEN: bowel sounds normal, no ascites, no organomegaly, no mass, centripital obesity NEUROLOGIC: alert and oriented, cranial nerves 2-12 grossly intact, deep tendon reflexes 2+ symmetrical, motor strength normal upper and lower extremities, sensory exam intact SKIN: no suspicious lesion s, anicteric PERIPHERAL PULSES: normal BREASTS: Not examined MUSCULOSKELETAL: extremities unremark able, no clubbing, cyanosis or edema LYMPH NODES: no enlarged lymph no juancarlos,spleen normal RECTAL EXAM: not examined PSYCH: alert, oriented ORAL CAVITY: normal, unremarkable
== END 2024-05-08 15:12 | disposition home or self-care (01) ==
PROVIDERS: Emergency Provider Emergency Medicine; PCP Internal Medicine Medical Oncology
DX: S09.90XA Unspecified injury of head, initial encounter (principal); W19.XXXA Unspecified fall, initial encounter; Y93.9 Activity, unspecified; Y92.9 Unspecified place or not applicable; Y99.9 Unspecified external cause status; K21.9 Gastro-esophageal reflux disease without esophagitis; F41.9 Anxiety disorder, unspecified; Z79.899 Other long term (current) drug therapy
CPT/HCPCS: 36415; 70450; 72125; 80048; 81003; 84484; 85025; 87635; 93005; 97162; 99284

== ENCOUNTER → 2024-05-08 09:44 | Outpatient (BNV) | payer MEDICAID, SELFPAY | PROVIDERS: Emergency Provider Emergency Medicine; PCP Internal Medicine Medical Oncology; Visit Provider Internal Medicine Cardiovascular Disease | DX: R07.9 Chest pain, unspecified (principal); R94.31 Abnormal electrocardiogram [ECG] [EKG] | CPT/HCPCS: 93010 ==

== ENCOUNTER 2024-05-28 15:33 | Outpatient (REF) | payer MEDICAID, SELFPAY ==
--- NOTE | ~2024-05-28 | XR_ITS ---
EXAMINATION: Chest 2 views and right shoulder 2 views. CLINICAL INDICATION: Epilepsy. Preop evaluation. COMPARISON: Chest 08/31/2018. Right shoulder 5 09/17/2011 FINDINGS: CHEST: The lungs are well-expanded and clear acute process. The heart size and pulmonary vascularity is normal. There is mild spondylosis dorsal spine. No aggressive lytic or sclerotic process seen. RIGHT SHOULDER: The glenohumeral and AC joint spaces preserved normal. No visible acute fracture, dislocation or subluxation seen. No bony erosive changes. The soft tissues are normal. XR/XR shoulder RT min 2V IMPRESSION: Unremarkable chest. Unremarkable right shoulder exam. Electronically signed by: Amaury Gould MD 05/29/2024 09:02 AM [facility]
--- NOTE | ~2024-05-28 | XR_ITS ---
EXAMINATION: Chest 2 views and right shoulder 2 views. CLINICAL INDICATION: Epilepsy. Preop evaluation. COMPARISON: Chest 08/31/2018. Right shoulder 5 09/17/2011 FINDINGS: CHEST: The lungs are well-expanded and clear acute process. The heart size and pulmonary vascularity is normal. There is mild spondylosis dorsal spine. No aggressive lytic or sclerotic process seen. RIGHT SHOULDER: The glenohumeral and AC joint spaces preserved normal. No visible acute fracture, dislocation or subluxation seen. No bony erosive changes. The soft tissues are normal. XR/XR chest 2V IMPRESSION: Unremarkable chest. Unremarkable right shoulder exam. Electronically signed by: Amaury Gould MD 05/29/2024 09:02 AM EARL
--- OUTSIDE RECORDS SUMMARY | 2024-05-28 15:39 | XMS_ITS ---
Author Organization David Harris III, MD Address [address] [place] [address] Care Team Providers Care Spot Cleaner Name Role Phone David Harris Primary Care Provider REASON FOR VISIT Message Encounters Encounter Location Date Provider Diagnosis David Harris III, MD [address] [place] [address] 05/15/2024 David Harris Plan Of Treatment Next Appt Details Provider Name:David Harris, 08/15/2024 10:30:00 AM, [address] [place] [address] [place], [address], Provider Name:David Harris, 01/21/2025 02:00:00 PM, [address] [place] [address] [place], [address], Progress Notes * Lisset VARELAOB: 8 (54 yo F)Acc No.[id number]:05/15/2024 Patient:?Sierra VARELA :1970???Age:54 Y???Sex:Female Address:[address], [address] * true * Date:? Generated for Printi ng/Faxing/eTransmitting on:?05/28/2024 03:39 PM EST
--- OUTSIDE RECORDS SUMMARY | 2024-05-28 15:39 | XMS_ITS ---
Author Organization David Harris III, MD Address [address] [place] [address] Care Team Providers Care Outboard Motor Mechanic Name Role Phone David Harris Primary Care Provider REASON FOR VISIT PT Orders / Med Update Medications Medication SIG (Take, Route, Frequency, Duration) Notes Start Date End Date Status Propranolol HCl 10 mg 1 Tablet Orally Tw ice a day on an empty stomach Active Doxepin HCl 10 mg 1 Capsule Orally at bed time Active Divalproex Sodium ER 500 mg 2 Tablet Ora lly twice a day Active Omeprazole 20 mg 1 Capsule Orally Yola ly 30 minutes before breakfast Active Zonisamide 100 mg 1 capsule orally twi ce a day Active Magnesium Oxide -Mg Supplement 400 (240 Mg) MG 1 tablet with food Orally Once a day Active Nitroglycerin 0.4 MG 1 tablet under the tongue and allow to dissolve as needed. Take every 5 minutes up to 3 times if chest pain persists Sublingual Three times a day for 30 days Active Naproxen 500 mg 1 Tablet Orally Twic e a day Active Phenytoin Sodium Extended 100 mg TAKE 3 CAPSULES BY MOUTH EVERY 12 HOURS for 30 Active Ketoconazole 2 % 1 application Upset Operator ally Twice a day for 21 days Active Zolpidem Tartrate ER 12.5 MG 1 Tablet Orally At bed time As needed Active ALPRAZolam 1 MG 1 tablet Orally thre e times a day Active Escitalopram Oxalate 20 MG 1 tablet Oral ly Once a day Active Encounters Encounter Location Date Provider Diagnosis David Harris III, MD [address] [place] [address] [place] [address] 05/10/2024 David Harris Plan Of Treatment Next Appt Details Provider Name:David Harris, 08/15/2024 10:30:00 AM, [address] [facility] [address], [place], [address], Provider Name:David Harris, 01/21/2025 02:00:00 PM, [address] [facility], [place], [address], Progress Notes * Lisset VARELAOB: 8 (54 yo F)Acc No.[id number]:05/10/2024 Patient:?Sierra VARELA :1970???Age:54 Y???Sex:Female Address:[address] [place], [place] [address], [place], [address] Subjective: * Chief Complaints: * ???PT Orders / Med Update * Medical History:? * Surgical History:? * Hospitalization/Major Diagno stic Procedure:? * Medications:?TakingNaproxen 500 mg Tablet 1 Tablet Orally Twice [...] 500 mg Tablet Extended Release 24 Hour 2 Tablet Orally twice a day Zonisamide 100 mg Capsule 1 capsule orally twice a day Ketoconazole 2 % Cream 1 application Externally Twice a day for 21 days ALPRAZolam 1 MG Tablet 1 tablet Orally three times a day Zolpidem Tartrate ER 12.5 MG Tablet Extended Release 1 Tablet Orally At bed time As neededEscitalopram Oxalate 20 MG Tablet 1 tablet Orally Once a day Phenytoin Sodium Extended 100 mg Capsule TAKE 3 CAPSULES BY MOUTH EVERY 12 HOURS Nitroglycerin 0.4 MG Tablet Sublingual 1 tablet under the tongue and allow to dissolve as needed. Take every 5 minutes up to 3 times if chest pain persists Sublingual Three times a day Taking Naproxen 500 mg Tablet 1 Tablet [...] 500 mg Tablet Extended Release 24 Hour 2 Tablet Orally twice a day Taking Zonisamide 100 mg Capsule 1 capsule orally twice a day Taking Ketoconazole 2 % Cream 1 application Externally Twice a day for 21 days Taking ALPRAZolam 1 MG Tablet 1 tablet Orally three times a day Taking Zolpidem Tartrate ER 12.5 MG Tablet Extended Release 1 Tablet Orally At bed time As neededTaking Escitalopram Oxalate 20 MG Tablet 1 tablet Orally Once a day Taking Phenytoin Sodium Extended 100 mg Capsule TAKE 3 CAPSULES BY MOUTH EVERY 12 HOURS Taking Nitroglycerin 0.4 MG Tablet Sublingual 1 tablet under the tongue and allow to dissolve as needed. Take every 5 minutes up to 3 times if chest pain persists Sublingual Three times a day DiscontinuedTriamcinolone Acetonide 0.1 % Cream 1 application Externally Three times a day for 14 days Medication List reviewed and reconciled with the patientDiscontinued Triamcinolone Acetonide 0.1 % Cream 1 application Externally Three times a day for 14 days Medication List reviewed and reconciled with the patient Objective: * Vitals:? * Physical Examination:? Assessment: Plan: * Treatment: * Procedure Codes:? * true * Date:? Generated for Sarah romo/Kay/Gurpreet on:?05/28/2024 03:39 PM EST
--- OUTSIDE RECORDS SUMMARY | 2024-05-28 15:39 | XMS_ITS ---
Author Organization David Harris III, MD Address [address] [place] [address] Care Team Providers Care Plating Inspector Name Role Phone David Harris Primary Care Provider Allergies Allergen (clinical drug ingredient) Drug/Non Drug Allergy documented on EMR Reaction Allergy Type Onset Date Status No Known Drug Allergy Unknown Drug Allergy Active REASON FOR VISIT Clearance for Bilateral upper eyelid blepharoplasty and Bilateral upper eyelid ptosis repair on 06/08/2024, Receiving PT for the past 2 weeks due to falling, Right breast pain x 2 weeks, Lump on leftthigh x 1 month, Bilateral feet swollen x 2 months, sore breast p fall 21 days ago at home, swollen Medications Medication SIG (Take, Route, Frequency, Duration) Notes Start Date End Date Status Escitalopram Oxalate 20 MG 1 tablet Oral ly Once a day Active Zolpidem Tartrate ER 12.5 MG 1 Tablet Orally At bed time As needed Active ALPRAZolam 1 MG 1 tablet Orally thre e times a day Active Ketoconazole 2 % 1 application Technical Intern ally Twice a day for 21 days Active Phenytoin Sodium Extended 100 mg TAKE 3 CAPSULES BY MOUTH EVERY 12 HOURS Active Doxepin HCl 10 mg 1 Capsule Orally at bed time Active Magnesium Oxide -Mg Supplement 400 (240 Mg) MG 1 tablet with food Orally Once a day Active Propranolol HCl 10 mg 1 Tablet Orally Tw ice a day on an empty stomach Active Divalproex Sodium ER 500 mg 2 Tablet Ora lly twice a day Active Omeprazole 20 mg 1 Capsule Orally Yola ly 30 minutes before breakfast Active Zonisamide 100 mg TAKE 1 CAPSULE BY [facility] TWICE A DAY Active Nitroglycerin 0.4 MG 1 tablet under the tongue and allow to dissolve. Take every 5 minutes up to 3 times if chest pain persists Sublingual Three times a day Active Naproxen 500 mg TAKE 1 TABLET BY SUZAN TH TWICE A DAY Active Social History Tobacco Use: Social History Observation Description Date Details (start date - stop date) Former Smoker NA - NA Tobacco Control (Standard) Question Answer Notes Tobacco use: Former smoker Vital Signs Temperature 98.8 degrees Fahrenheit 05/28/20 24 Blood pressure systolic 140 mm Hg 05/28/20 24 Blood pressure diastolic 68 mm Hg 024 Heart Rate 80 /min 05/28/2024 Height 66 in 05/28/2024 Weight 195 lbs 05/28/2024 BMI 31.47 kg/m2 05/28/2024 Encounters Encounter Location Date Provider Diagnosis David Harris III, MD [address] [place] [address] [place] [address] 05/28/2024 David Harris Epilepsy G40.909 ; Pre-op evaluation Z01.818 ; Overweight (BMI 25.0-29.9) E66.3 ; Back pain M54.9 ; Breast screening Z12.31 and Acute pain of right shoulder M25.511 Assessments Encounter Date Diagnosis (ICD Code) Assessment Notes Treatment Notes Treatment Clinical Notes 05/28/2024 Epilepsy (ICD-10 - G40.909) 05/28/2024 Pre-op evaluation (ICD-10 - Z01.818) 05/28/2024 Overweight (BMI 25.0-29.9) (ICD-10 - E66.3) 05/28/2024 Back pain (ICD-10 - M54.9) 05/28/2024 Breast screening (ICD-10 - Z12.31) 05/28/2024 Acute pain of right shoulder (ICD-10 - M25.511) Plan Of Treatment Medication Medication Name Sig Start Date Stop Date Notes Escitalopram Oxalate 20 MG 1 tablet Orally Once a day Zolpidem Tartrate ER 12.5 MG 1 Tablet Orally At bed time ALPRAZolam 1 MG 1 tablet Orally thre e times a day Ketoconazole 2 % 1 application Technical Intern ally Twice a day for 21 days Phenytoin Sodium Extended 10 0 mg TAKE 3 CAPSULES BY MOUTH EVERY 12 HOURS Doxepin HCl 10 mg 1 Capsule Orally at bed time Magnesium Oxide -Mg Suppleme nt 400 (240 Mg) MG 1 tablet with food Orally Once a day Propranolol HCl 10 mg 1 Tablet Orally Tw ice a day on an empty stomach Divalproex Sodium ER 500 mg 2 Tablet Orally twice a day Omeprazole 20 mg 1 Capsule Orally Yola ly 30 minutes before breakfast Zonisamide 100 mg TAKE 1 CAPSULE BY [facility] TWICE A DAY Nitroglycerin 0.4 MG 1 tablet under the tongue and allow to dissolve. Take every 5 minutes up to 3 times if chest pain persists Sublingual Three times a day Naproxen 500 mg TAKE 1 TABLET BY SUZAN TWICE A DAY Pending Test Test Name Order Date PROFILE, FASTING (COMPREHENSIVE METABOLI C) 05/28/2024 MAGNESIUM 05/28/2024 CBC w DIFF 05/28/2024 XR CHEST 2 VIEW PA & LAT 05/28/2024 XR SHOULDER RT 2 VIEWS 05/28/2024 MAMMOGRAM DIGITAL BILATERAL SCREEN 05/28 Lipid Panel 05/28/2024 Phenytoin Dilantin 05/28/2024 ECG 12 lead EKG 05/28/2024 Next Appt Details Follow Up: after testing and mammogram, Reason: OV review x ray and mammogram Provider Name:David Harris, 08/15/2024 10:30:00 AM, [address] [place] [address] [address], [place], [address], Provider Name:David Harris, 01/21/2025 02:00:00 PM, [address] [place] [address] [address], [place], [address], Progress Notes * Lisset VARELAOB: 8 (54 yo F)Acc No.[id number]:05/28/2024 Patient:?Sierra VARELA Provider:?David Harris MD :1970???Age:54 Y???Sex:Female D ate:05/28/2024 Address:[address] [place] [address] [place], [id number] Subjective: * Chief Complaints: * ???1. Clearance for Bilatera l upper eyelid blepharoplasty and Bilateral upper eyelid ptosis repair on 06/08/2024. 2. Receiving PT for the past 2 weeks due to falling. 3. Right breast pain x 2 weeks. 4. Lump on left thigh x 1 month. 5. Bilateral feet swollen x 2 months. 6. Sore breast p fall 21 days ago at home. 7. Swollen. * HPI: ???COVID-19 Screening:?Questions?Have you had any new onset fever, chills, cough, congestion, sore throat, shortness of breath, muscle aches??No * ROS:?General/Constitutional:?pain?only normal aches and pains.?Chills?denies.?Fatigue?admits.?Fever?denies.?ENT:?Decreased hearing?denies.?Respiratory:?Cough?denies.?Cardiovascular:?Chest pain with exertion?denies.?Dyspnea on exertion?denies.?Shortness of breath?denies.?Gastrointestinal:?Constipation?denies.?Decreased appetite?denies.?Diarrhea?denies.?Heartburn?denies.?Nausea?denies.?Rectal bleeding?denies.?Vomiting?denies.?Hematology:?bruising?denies.?petechiae?denies.?Swollen glands?none have been noted.?Genitourinary:?Frequent urination?denies.?Musculoskeletal:?Muscle aches?denies.?Painful joints?denies.?Sciatica?denies.?Weakness?denies.?Skin:?Itching?denies.?Rash?denies.?Skin lesion(s)?denies.?Neurologic:?Difficulty speaking?denies.?Dizziness?denies.?Headache?denies.?Low back pain?denies.?Psychiatric:?Depressed mood?denies.? 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 Atypical chest pain, negative perfusion test, depression, treated at [facility], has a prescriber, chronic dermatitis, Dr. Toney, management professional, [facility], Sleep apnea, Carpal tunnel syndrome, left, Overweight, Status migrainosus, obstructive sleep apnea April 2020, Left homonymous hemianopsia, History of panic attacks. * Surgical History:?right occi pital craniotomy re: AVM malformation 05/1999, LEEP procedure 1999, endometrial biopsy, proliferative endometrium 2014, colonoscopy , tubal ligation , No history . * Hospitalization/Major Diagno stic Procedure:?[facility], craniotomy for AVM 1999, No history . * Family History:?Father: rico e 92 yrs, [...] (Standard)?Tobacco use:?Former smoker ???She was born in [place], [place]. She has been to [place] for 20 years. She has 4 children and 7 grandchileren. * Medications:?Taking Magnesiu m Oxide -Mg Supplement 400 (240 Mg) MG Tablet 1 tablet with food Orally Once a day , Taking Doxepin HCl 10 mg Capsule 1 Capsule Orally at bed time , Taking Propranolol HCl 10 mg Tablet 1 Tablet Orally Twice a day on an empty stomach , Taking Omeprazole 20 mg Capsule Delayed Release 1 Capsule Orally Daily 30 minutes before breakfast , Taking Divalproex Sodium ER 500 mg Tablet Extended Release 24 Hour 2 Tablet Orally twice a day , Taking Ketoconazole 2 % Cream 1 application Externally Twice a day for 21 days , Taking ALPRAZolam 1 MG Tablet 1 tablet Orally three times a day , Taking Zolpidem Tartrate ER 12.5 MG Tablet Extended Release 1 Tablet Orally At bed time As needed, Taking Escitalopram Oxalate 20 MG Tablet 1 tablet Orally Once a day , Taking Phenytoin Sodium Extended 100 mg Capsule TAKE 3 CAPSULES BY MOUTH EVERY 12 HOURS , Taking Nitroglycerin 0.4 MG Tablet Sublingual 1 tablet under the tongue and allow to dissolve. Take every 5 minutes up to 3 times if chest pain persists Sublingual Three times a day , Taking Zonisamide 100 mg Capsule TAKE 1 CAPSULE BY MOUTH TWICE A DAY , Taking Naproxen 500 mg Tablet TAKE 1 TABLET BY MOUTH TWICE A DAY , Medication List reviewed and reconciled with the patient * Allergies:?No Known Drug All ergy. Objective: * Vitals:?Ht: 66, Wt: 195, BMI :31.47, BP: 140/68, HR: 80, Temp: 98.8, Wt-k.45. * Examination: ???General Examination: ?GENERAL APPEARANCE:?pleasant, well nourished, well developed, in no acute distress, calm and relaxed.?HEAD:?atraumatic, normocephalic.?EYES:?eomi, perrla, anicteric, conjugate.?EARS:?normal.?NOSE:?septum intact.?ORAL CAVITY:?normal, unremarkable.?NECK/THYROID:?no jugular venous distention, no carotid bruit, thyroid normal.?LYMPH NODES:?no enlarged lymph nodes,spleen normal.?SKIN:?no suspicious lesions, anicteric.?HEART:?no clicks, gallops, murmurs, or rubs, regular rhythm, S1, S2 normal, no s3, or vascular bruits.?LUNGS:?clear to auscultation .?BREASTS:??no masses palpable bilaterally.?ABDOMEN:?bowel sounds normal, no ascites, no organomegaly, no mass.?RECTAL EXAM:?not examined.?MUSCULOSKELETAL:?extremities unremarkable, no clubbing, cyanosis or edema.?PERIPHERAL PULSES:?normal.?NEUROLOGIC:?alert and oriented, cranial nerves 2-12 grossly intact, deep tendon reflexes 2+ symmetrical, motor strength normal upper and lower extremities, sensory exam intact.?PSYCH:?alert, oriented.? Assessment: * Assessment: 1.?Epilepsy - G40.909???2.?P re-op evaluation - Z01.818???3.?Overweight (BMI 25.0-29.9) - E66.3???4.?Back pain - M54.9???5.?Breast screening - Z12.31???6.?Acute pain of right shoulder - M25.511??? Plan: * Treatment: 2.?Pre-op evaluation?LAB: PROFILE, FASTING (COMPREHENSIVE METABOLIC) ?LAB: MAGNESIUM ?LAB: CBC w DIFF ?LAB: Lipid Panel ?LAB: Phenytoin Dilantin ?Imaging: XR CHEST 2 VIEW PA & LAT ?Imaging: ECG 12 lead EKG 3.?Overweight (BMI 25.0-29.9 )?LAB: PROFILE, FASTING (COMPREHENSIVE METABOLIC) ?LAB: MAGNESIUM ?LAB: CBC w DIFF ?LAB: Lipid Panel ?LAB: Phenytoin Dilantin ?Imaging: XR CHEST 2 VIEW PA & LAT 4.?Back pain?LAB: PROFILE, FASTING (COMPREHENSIVE METABOLIC) ?LAB: MAGNESIUM ?LAB: CBC w DIFF ?LAB: Lipid Panel ?LAB: Phenytoin Dilantin ?Imaging: XR CHEST 2 VIEW PA & LAT 5.?Breast screening?Imaging: MAMMOGRAM DIGITAL BILATERAL SCREEN 6.?Acute pain of right shoul alexander?LAB: PROFILE, FASTING (COMPREHENSIVE METABOLIC) ?LAB: MAGNESIUM ?LAB: CBC w DIFF ?LAB: Lipid Panel ?LAB: Phenytoin Dilantin ?Imaging: XR CHEST 2 VIEW PA & LAT ?Imaging: XR SHOULDER RT 2 VIEWS 7.?Others? Continue Nitroglycerin Tablet Sublingual, 0.4 MG, 1 tablet under the tongue and allow to dissolve. Take every 5 minutes up to 3 times if chest pain persists, Sublingual, Three times a day.?? * Preventive Medicine:? ??Counseling:?Care goal follow-up plan:?Counseling [...] done: Medical or Other reason not done * Follow Up:?after testing and mammogram (Reason: OV review x ray and mammogram) * Images: * The named appointment provid er may or may not be the originator of this progress note, and it is not deemed complete until electronically signed by the appointment provider. Sign off status: Pending * Provider:?David Harris MD Date:?05/01 Generated for Sarah romo/Kay/Negritoitting on:?05/28/2024 03:39 PM EST History and Physical Notes * HPI (History of Present Illness) Category Sub-Category Detail Notes COVID-19 Screening Questions Have you had any new onset fever, chills, cough, congestion, sore throat, shortness of breath, muscle aches?: No Examination Category Sub-Category Detail Notes General Examination GENERAL APPEARANCE: pleasant , well nourished, well developed, in no acute distress, calm and relaxed HEAD: atraumatic, normocep halic EYES: eomi, perrla, anicte elizabeth, conjugate EARS: normal NOSE: septum intact NECK/THYROID: no jugular venous di stention, no carotid bruit, thyroid normal HEART: no clicks, gallops, murmurs, or rubs, regular rhythm, S1, S2 normal, no s3, or vascular bruits LUNGS: clear to auscultatio n ABDOMEN: bowel sounds normal, no ascites, no organomegaly, no mass NEUROLOGIC: alert and oriented, cranial nerves 2-12 grossly intact, deep tendon reflexes 2+ symmetrical, motor strength normal upper and lower extremities, sensory exam intact SKIN: no suspicious lesion s, anicteric PERIPHERAL PULSES: normal BREASTS: no masses palpable b ilaterally MUSCULOSKELETAL: extremities unremark able, no clubbing, cyanosis or edema LYMPH NODES: no enlarged lymph no juancarlos,spleen normal RECTAL EXAM: not examined PSYCH: alert, oriented ORAL CAVITY: normal, unremarkable
--- OUTSIDE RECORDS SUMMARY | 2024-05-28 15:40 | XMS_ITS | Patient Health Record ---
Author Organization David Harris III, MD Address [address] [address] Care Team Providers Care Dermatology Nurse Name Role Phone David Harris Primary Care Provider Allergies Allergen (clinical drug ingredient) Drug/Non Drug Allergy documented on EMR Reaction Allergy Type Onset Date Status No Known Drug Allergy Unknown Drug Allergy Active Results Component Value Reference Range Notes Phenytoin Dilantin Reviewed date:01/15/2024 08:02:24 AM Interpretation: Performing Lab:[facility], [address] [place] [phone] Notes/Report: [id number] 2200 Phenytoin Dilantin 24.3 10.0-20.0 ug/mL Critical [...] +++ Negative - Menstrating no MM tomosynthesis diagnostic LT Reviewed date:07/03/2023 07:56:42 AM Interpretation: Performing Lab: Notes/Report: [facility] [address] [place] [address] Mammography Report Signed Patient: Sierra Michele MR#: [id number] 45 : 1970 Acct:[id number] Age/Sex: 53 / F ADM Date: 07/01/23 Loc: HO.MAMMO Attending Dr: David Harris MD Ordering Physician: David Harris MD Results: 2Benign Findings Date of Service: 07/01/23 Follow Up: 1 Year From Orig inal Mammogram Procedure(s): MM tomosynthesis diagnostic LT Accession Number(s): [id number] cc: David Harris MD EXAMINATION: MM DIAGNOSTIC [...] in OV> 07/01/23 1432 DD/ 1332 TD/TT: Vehicle Painter: [place]andro [facility] [address] [place], [place] [address] Mammography Report Signed Patient: Sierra Michele MR#: [id number] 45 : 1970 Acct:[id number] Age/Sex: 53 / F ADM Date: 07/01/23 Loc: HO.MAMMO Attending Dr: David Harris MD Ordering Physician: David Harris MD Results: 2Benign Findings Date of Service: 07/01/23 Follow Up: 1 Year From Orig ina Mammogram Procedure(s): MM tomosynthesis diagnostic LT Accession Number(s): [id number] cc: David Harris MD EXAMINATION: MM DIAGNOSTIC [...] in OV> 07/01/23 1432 DD/ 1332 TD/TT: Vehicle Painter: MAMMOGRAM DIGITAL BILATERAL SCREEN Reviewed date:01/18/2024 02:26:41 PM Interpretation:undefined Performing Lab: Notes/Report: undefined Complete Blood Count Auto Di ff Reviewed date:01/15/2024 08:02:24 AM Interpretation: Performing Lab:[facility], [address] [place] [phone] Notes/Report: White Blood Count 4.4 4.8-10.8 X10*3/uL [...] Panel Reviewed date:01/15/2024 08:02:24 AM Interpretation: Performing Lab:[facility], [address] [place] [phone] Notes/Report: Sodium 143 135-145 mmol/L Potassium 4.2 3.3-5.1 mmol/L Chloride 103 96-108 mmol/L Carbon Dioxide 30 22-29 mmol/L Anion Gap 14 12-20 Blood Urea Nitrogen 9 9-16 mg/dL Creatinine 0.64 0.5-1.4 mg/dL Estimated Glomerular Filt Rate > 60 NOTE: For -Turkmen individuals, multiply the result by 1.210. Chronic [...] Valproate Reviewed date:01/15/2024 08:02:24 AM Interpretation: Performing Lab:[facility], [address] [place] [phone] Notes/Report: [id number] 2199 Valproate 91.2 50.0-100.0 mcg/mL Last dose was taken on 01/02/24 at 2200. PAP + HPV E6/E7 rfx 18/45 Reviewed date:02/22/2024 06:40:59 AM Interpretation: Performing Lab:[facility], [address] [place] [phone] Notes/Report: SEE SCANNED RESULTS IN EMR HPV 16 RNA TNP HPV 18/45 RNA TNP HPV mRNA E6/E7 Not Detected Not Detected Methodology: Supervisor Functional Testing-Mediated Amplification This assay detects E6/E7 viral messenger RNA (mRNA) from 14 high-risk HPV types (16,18,31,33,35,39,45, 51,52,56,58,59,66,68). Cervical sources are required for HPV testing. If a vaginal source from a patient who has had a total hysterectomy with removal of cervix was submitted, please contact the testing laboratory for alternative testing options. For additional information, please refer to http://education.Senzari/faq/FA Q129v1 (This link if provided for information/ educational purposes only.) THIS TEST WAS PERFORMED AT: [facility] [address] [address] TYRELL ESCOBAR MD Thin Prep Source SEE [...] commonly, endometrial neoplasia. Clinical correlation is suggested. Finished Cloth Checker SEE NOTE M, CT(ASCP) CT screening location: [address] [address] Review Finished Cloth Checker [place] Pathologist [place] PAP Infection SEE NOTE Shift in vaginal [...] Pathology Reviewed date:2024 07:37:28 AM Interpretation: Performing Lab:[facility], [address] [place] [phone] Notes/Report: -- ---- Name: Sierra Michele Age/Sex: 53/F : 1970 Unit#: [id number] Attend Dr: Chito Rodriguez MD Re02/27/24 Status : DEP REF Location: [facility] Disch: -- ---- SPEC : [id number] RECD : 02/27/24-9 STATUS: HALIMA NIXON NUM: [id number] JACOB: 02/27/24-1020 [facility] DR: Chito Rodriguez MD ENTERED: 02/27/24-13 39 SP TYPE: Surgical OTHR DR: David [...] microscopic examination, multiple pieces in cassette A. [facility] Copies To: David Harris MD [address] [facility], [address] [place], [place] [id number] Chito Rodriguez MD [facility] [address] [place] [address] -- ---- Signed (signature on file) Cedric Garza MD 02/28/24 1246 -- ---- END OF REPORT Urinalysis Reviewed date:05/21/2024 06:10:55 AM Interpretation: Performing Lab:[facility], [address] [place] [phone] Notes/Report: Color Urine Yellow Appearance Urine Turbid PH 7.0 5.0-9.0 Glucose Urine UA Negative Negative mg/dL Urine Blood Negative Negative Specific [place]er - Urine 1.020 1.005-1.025 Urine Protein Negative Neg-Trace mg/dL Urine Ketones Trace Negative mg/dL Nitrite Urine Negative Negative Leukocyte Esterase Urine Negative Negative Urine Culture Reviewed date:05/21/2024 06:10:55 AM Interpretation: Performing Lab:[facility], [address] [place] [phone] Notes/Report: O:STAEPI Staphylococcus epidermidis Urine Culture Quant Urine Culture 10,000 to 50,000 cfu/mL Clindamycin <=0.25 Erythromycin >=8 Nitrofurantoin <=16 Oxacillin >=4 Penicillin-G >=0.5 Tetracycline >=16 Trimethoprim/Sulfamethox azole >=320 Vancomycin 2 Complete Blood Count Auto Di ff Reviewed date:05/21/2024 06:10:55 AM Interpretation: Performing Lab:[facility], [address] [place] [phone] Notes/Report: White Blood Count 6.7 4.8-10.8 X10*3/uL [...] Auto 0.000 0.0-0.012 X10*3/uL Basic Metabolic Panel Reviewed date:05/21/2024 06:10:55 AM Interpretation: Performing Lab:[facility], [address] [place] [phone] Notes/Report: Sodium 142 135-145 mmol/L Potassium 4.6 [...] Calcium 9.1 8.4-10.2 mg/dL Troponin-I High Sensitivity Reviewed date:05/21/2024 06:10:55 AM Interpretation: Performing Lab:[address] [address] Notes/Report: Troponin-I High Sensitivity < 2.7 <3.5-17.0 ng/L The [facility] high sensitivity Troponin-I results should be used in conjunction with other diagnostic information such as ECG, clinical observations and information, and patient symptoms to aid in the diagnosis of SC. UA CC w/rflx Micro + Cult Reviewed date:05/21/2024 06:10:55 AM Interpretation: Performing Lab:[facility], [address] [place] [phone] Notes/Report: [id number] Urine, Clean Catch Color Urine Yellow Appearance Urine Clear PH 8.0 5.0-9.0 Glucose Urine UA Negative Negative mg/dL Urine Blood Negative Negative Specific Henefer - Urine <= 1.005 1.005-1.025 Urine Protein Negative Neg-Trace mg/dL Urine Ketones Negative Negative mg/dL Nitrite Urine Negative Negative Leukocyte Esterase Urine Negative Negative COVID-19 ID NOW ([facility]) Reviewed date:05/21/2024 06:10:55 AM Interpretation: Performing Lab:[address] [address] Notes/Report: IDNOW Serial# [id number] COVID-19 Test Negative Negative COVID-19 Note See [...] with other viruses. Testing facilities within the [facility] and its territories are required to report [...] by authorized laboratories. Testing performed on the [employer] ID NOW utilizing NAAT. CT cervical spine wo con Reviewed date:05/21/2024 06:10:55 AM Interpretation: Performing Lab: Notes/Report: [address] [address] [address] Scan Report Signed Patient: Sierra Michele MR#: [id number] [birth year] : 1970 Acct:[id number] Age/Sex: 54 / F ADM Date: 05/08/24 Loc: HO.ED Attending Dr: Ordering Physician: Dario Regan MD Date of Service: 05/08/24 Procedure(s): CT cervical spine wo IV con Accession Number(s): [id number] cc: David Harris MD; Dario Regan MD [...] 05/08/24 1342 DD/ 1116 TD/TT: 05/08/24 1157 Vehicle Painter: [address] [address] [address] Scan Report Signed Patient: Sierra Michele MR#: [id number] [birth year] : 1970 Acct:[id number] Age/Sex: 54 / F ADM Date: 05/08/24 Loc: HO.ED Attending Dr: Ordering Physician: Dario Regan MD Date of Service: 05/08/24 Procedure(s): CT cervical spine wo IV con Accession Number(s): [id number] cc: David Harris MD; Dario Regan MD [...] Juan Jose Martinez MD 05/08/2024 01:42 PM [facility] Dictated By: Juan Jose Martinez Signed By: <Electronically signed by Juan Jose Martinez in OV> 05/08/24 1342 DD/ 1116 TD/TT: 05/08/24 1157 Vehicle Painter: CT head/brain wo con Reviewed date:05/21/2024 06:10:55 AM Interpretation: Performing Lab: Notes/Report: [address] [address] [address] Scan Report Signed Patient: Sierra Michele MR#: [id number] [birth year] : 1970 Acct:[id number] Age/Sex: 54 / F ADM Date: 05/08/24 Loc: HO.ED Attending Dr: Ordering Physician: Dario Regan MD Date of Service: 05/08/24 Procedure(s): CT head/brain wo IV con Accession Number(s): [id number] cc: David Harris MD; Dario Regan MD [...] Juan Jose Martinez MD 05/08/2024 01:42 PM [facility] Dictated By: Juan Jose Martinez Signed By: <Electronically signed by Juan Jose Martinez in OV> 05/08/24 1342 DD/ 1116 TD/TT: 05/08/24 1157 Vehicle Painter: [place] [address] [place] Scan Report Signed Patient: Sierra Michele MR#: [id number] [birth year] : 1970 Acct:[id number] Age/Sex: 54 / F ADM Date: 05/08/24 Loc: HO.ED Attending Dr: Ordering Physician: Dario Regan MD Date of Service: 05/08/24 Procedure(s): CT head/brain wo IV con Accession Number(s): [id number] cc: David Harris MD; Dario Regan MD [...] Juan Jose Martinez MD 05/08/2024 01:42 PM [facility] Dictated By: Juan Jose Martinez Signed By: <Electronically signed by Juan Jose Martinez in OV> 05/08/24 1342 DD/ 1116 TD/TT: 05/08/24 1157 Vehicle Painter: Reason For Referral Reason Consult and treat [...] DALTON Referred Provider Specialty Podiatry General Notes [facility] 07/05/2023 03:01:34 PM > Referral faxed Referral Priority Stat Medications Medication SIG (Take, Route, Frequency, Duration) Notes Start Date End Date Status Zonisamide 100 mg TAKE 1 CAPSULE BY [facility] TWICE A DAY Active Escitalopram Oxalate 20 MG 1 tablet Oral ly Once a day Active Zolpidem Tartrate ER 12.5 MG 1 Tablet Orally At bed time As needed Active ALPRAZolam 1 MG 1 tablet Orally thre e times a day Active Ketoconazole 2 % 1 application Partner Marketing Manager ally Twice a day for 21 days Active Doxepin HCl 10 mg 1 Capsule [...] BY SUZAN TH TWICE A DAY Active Phenytoin Sodium Extended 100 mg TAKE 3 CAPSULES BY MOUTH EVERY 12 HOURS Active Divalproex Sodium ER 500 mg 2 Tablet Ora lly twice a day Active Omeprazole 20 mg 1 Capsule Orally Yola ly 30 minutes before breakfast Active Propranolol HCl 10 mg 1 Tablet Orally Tw ice a day on an empty stomach Active Social History Tobacco Use: Social History [...] Problem Status W/U Status Risk Notes Problem 1727894 Former smoker (Z87.891) Active confirmed She has been free of tobacco for 6 weeks. We discussed smoking cessation techniques. We formed a strategy to prevent relapse in times of stress and illness. Problem 071851372884143 Obesity (BMI 30.0-34.9) (E66.9) Active confirmed She has lost 9 pounds in her body mass index is now 32.6. We discussed she could continue weight loss at a rate of one half of a pound per week. Problem Epilepsy (16030981) Epilepsy (G40.909) Active confirmed She has had no seizures since her last visit. Comprehensive blood work has been ordered. No change in her medications has been made. She will follow up with neurology regularly. Problem 248762914 Chronic cluster headache, intractable (G44.021) Active confirmed We are going to refer her back to her neurologist for follow-up of the subarachnoid hemorrhage and the headaches to see if any novel agents can be employed. Problem 114762207 Low back pain (M54.5) Active confirmed She continues t o have chronic intermittent low back pain but will continue her current medication. Problem Gastroesophageal reflux disease without esophagitis (923763459) Gastroesophagea l reflux disease without esophagitis (K21.9) Active confirmed Her reflux symptoms are well controlled with omeprazole. She was continued on this medicine. Problem 818347025 Panic attacks (F41.0) Active confirmed She was referre d back to mental health and I have given her a trial of fluoxetine. She will continue the alprazolam and other medications. Problem Ataxia () Ataxia (R27.0) Active confirm ed Problem Depressive disorder (disorder) (90254975) Depression, unspecified depression type (F32.9) Active confirmed Her depression has been mild and she has been compliant with her medication. No change was necessary today. She is conducting all of the activities of daily life without impairment. She continues under the care of the mental health provider. She has a therapist, eBcka. Problem 21693444 Sleep apnea in adult (G47.30) Active confirmed No change in her therapy was needed today. She denies daytime somnolence.She has not been using her CPAP due to some disruption in her home environment which is temporary. She plans to resume using it when she can. 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 Her Dilantin level was 3.1. She was reloaded. A repeat level has been ordered today. She was encouraged to stay in touch with the neurologist about the management of her epilepsy. Problem 115705409 AMOS III (cervical intraepithelial neoplasia grade III) with severe dysplasia (D06.9) Active confirmed She says that she is seeing the draughtsman at the recommended intervals. Problem 354241834 Arteriovenous malformation (Q27.30) Active confirmed The malformatio n was resected many years ago. Problem 69252091503063537 Right ovarian cyst (N83.201) Active confirmed This will be followed by the draughtsman. Problem 288322230 Blind left eye (H54.40) Active confirmed She reports no change in the vision in the right eye which she uses. I reiterated with her the necessity of seeing an sheet rock hanger at least annually to preserve the vision in the functioning eye. Problem 537855146464396 Left carpal tunnel syndrome (G56.02) Active confirmed Vital Signs Heart Rate 80 /min 05/28/2024 Temperature 98.8 degrees Fahrenheit 05/28/2024 Blood pressure diastolic 68 mm Hg 05/28/2024 Height 66 in 05/28/2024 Blood pressure systolic 140 mm Hg 05/28/2024 Weight 195 lbs 05/28/2024 BMI 31.47 kg/m2 05/28/2024 Encounters Encounter Location Date Provider Diagnosis David Harris III, MD [address] [place] [address] [place] [address] 05/28/2024 David Harris Epilepsy G40.909 ; P re-op evaluation Z01.818 ; Overweight (BMI 25.0-29.9) E66.3 ; Back pain M54.9 ; Breast screening Z12.31 and Acute pain of right shoulder M25.511 David Harris III, MD [address] [place] [address] [place] [address] 07/04/2023 David Harris Epilepsy G40.909 ; S [...] Subcutaneous mass R22.9 David Harris III, MD [address] [place] [address] [place] [address] 07/11/2023 David Harris Epilepsy G40.909 ; Depression, unspecified depression type F32.9 ; Gastroesophageal reflux disease without esophagitis K21.9 ; Sleep apnea in adult G47.30 ; Low back pain M54.5 ; Blind left eye H54.40 ; Chronic cluster headache, intractable G44.021 ; Former smoker Z87.891 ; Obesity (BMI 30.0-34.9) E66.9 and Left foot pain M79.672 David Harris III, MD [address] [place] [address] [place] [address] 01/03/2024 David Harris Epilepsy G40.909 ; Gastroesophageal reflux disease without esophagitis K21.9 ; Sleep apnea in adult G47.30 ; Depression, unspecified depression type F32.9 ; Arteriovenous malformation Q27.30 ; AMOS III (cervical intraepithelial neoplasia grade III) with severe dysplasia D06.9 ; Blind left eye H54.40 ; Former smoker Z87.891 and Obesity (BMI 30.0-34.9) E66.9 David Harris III, MD [address] [place] [address] [place] [address] 01/18/2024 David Harris Epilepsy G40.909 ; Urinary tract infection, site not specified N39.0 ; Sleep apnea in adult G47.30 ; Gastroesophageal reflux disease without esophagitis K21.9 ; Depression, unspecified depression type F32.9 ; Tobacco dependence F17.200 and Chronic cluster headache, intractable G44.021 David Harris III, MD [address] [place] [address] [place] [address] 04/17/2024 David Harris Epilepsy G40.909 ; Obesity (BMI 30.0-34.9) E66.9 ; Depression, unspecified depression type F32.9 ; Gastroesophageal reflux disease without esophagitis K21.9 and Sleep apnea in adult G47.30 David Harris III, MD [address] [place] [address] [place] [address] 07/06/2023 David Harris III, MD [address] [place] [address] [place] [address] 01/03/2024 David Harris III, MD [address] [place] [address] [place] [address] 05/07/2024 David Harris III, MD [address] [place] [address] [place] [address] 05/09/2024 David Harris III, MD [address] [place] [address] [place] [address] 05/10/2024 David Harris III, MD [address] [place] [address] [place] [address] 05/15/2024 David Harris Assessments Encounter Date Diagnosis (ICD Code) Assessment Notes T reatment Notes Treatment Clinical Notes 05/28/2024 Epilepsy (ICD-10 - G40.909) 07/04/2023 Epilepsy (ICD-10 - G40.909) She has [...] She will follow up with neurology regularly. 05/28/2024 Pre-op evaluation (ICD-10 - Z01.818) 07/04/2023 Low back pain (ICD-1 0 - M54.5) She continues to have chronic intermittent low back pain but will continue her current medication. 07/11/2023 Gastroesophageal reflux disease without esophagitis (ICD-10 - K21.9) Her heartburn has been well controlled with cizo-vkd-bgsrked medications. She has been compliant with the [...] health provider. She has a therapist, Becka. 05/28/2024 Overweight (BMI 25.0-29.9) (ICD-10 - E66.3) 07/04/2023 Gastroesophageal reflux disease without esophagitis (ICD-10 - K21.9) Her heartburn has been well controlled with ybue-xyr-diseotg medications. She has been compliant with the [...] omeprazole. She was continued on this medicine. 05/28/2024 Back pain (ICD-10 - M54.9) 07/04/2023 Depression, unspecified depression type (ICD-10 - [...] to resume using it when she can. 05/28/2024 Breast screening (ICD-10 - Z12.31) 07/04/2023 Arteriovenous malformation (ICD-10 - Q27.30) The malformation was resected many years ago. 07/11/2023 Blind left eye (ICD- 10 - H54.40) She reports no change in the vision in the right eye which she uses. I reiterated with her the necessity of seeing an sheet rock hanger at least annually to preserve the vision in the functioning eye. 01/03/2024 AMOS III (cervical intraepithelial neoplasia grade III) with severe dysplasia (ICD-10 - D06.9) She says that she is seeing the draughtsman at the recommended intervals. 01/18/2024 Tobacco dependence (ICD-10 - F17.200) I strongly recommended smoking cessation and made her aware of smoke [place] and the various smoking cessation programs in the area. I have described patches and Chantix. She will consider these options. 05/28/2024 Acute pain of right shoulder (ICD-10 - M25.511) 07/04/2023 AMOS III (cervical intraepithelial neoplasia grade III) with severe dysplasia (ICD-10 - D06.9) She says that she is seeing the draughtsman at the recommended intervals. 07/11/2023 Chronic cluster [...] with her the necessity of seeing an sheet rock hanger at least annually to preserve the vision [...] with her the necessity of seeing an sheet rock hanger at least annually to preserve the vision [...] her that she needs to see the vault keeper. She will call my office afterwards and the Arm[facility] with anything. Plan Of Treatment Pending Test Test Name Order Date PROFILE, FASTING (COMPREHENSIVE METABOLI C) 01/11/2018 PROFILE, FASTING (COMPREHENSIVE METABOLI C) 04/27/2023 PROFILE, FASTING (COMPREHENSIVE METABOLI C) 05/28/2024 PROFILE, FASTING (COMPREHENSIVE METABOLI C) 03/23/2019 PROFILE, FASTING (COMPREHENSIVE METABOLI C) 04/17/2024 PROFILE, FASTING (COMPREHENSIVE METABOLI C) 08/08/2018 PROFILE, RANDOM (COMPREHENSIVE METABOLIC ) 01/03/2024 MAGNESIUM 05/28/2024 LIPID PANEL 01/11/2018 LIPID PANEL 03/23/2019 LIPID PANEL 08/08/2018 FREE T4 (FT4) 03/23/2019 FREE T4 (FT4) 01/11/2018 TSH (THYROID STIMULATING HORMONE) 2018 TSH (THYROID STIMULATING HORMONE) 2017 FERRITIN 01/11/2018 VALPROIC ACID (VPA, DEPAKOTE) 08/08/2018 VALPROIC ACID (VPA, DEPAKOTE) 03/23/2019 VALPROIC ACID (VPA, DEPAKOTE) 01/03/2024 CBC w DIFF 01/11/2018 CBC w DIFF 01/03/2024 CBC w DIFF 08/08/2018 CBC w DIFF 04/27/2023 CBC w DIFF 03/23/2019 CBC w DIFF 05/28/2024 CBC w DIFF 04/17/2024 SED RATE (ESR) 03/23/2019 PHENYTOIN, FREE/UNBOUND 03/23/2019 PHENYTOIN, FREE/UNBOUND 01/11/2018 PAP SMEAR (THIN PREP) 05/08/2018 XR CHEST 2 VIEW PA & LAT 05/28/2024 XR CHEST 2 VIEW PA & LAT 08/30/2018 XR SHOULDER RT 2 VIEWS 05/28/2024 MAMMOGRAM DIGITAL BILATERAL SCREEN 05/28 VITAMIN D 25-OH TOTAL 01/11/2018 Urinalysis 01/18/2024 Lipid Panel 04/17/2024 Lipid Panel 05/28/2024 Phenytoin Dilantin 05/28/2024 Urine Culture 01/18/2024 ECG 12 lead EKG 05/28/2024 XR lumbar spine 2-3V 07/21/2021 Next Appt Details Provider Name:David Harris, 08/15/2024 10:30:00 AM, [address] [place] [address] [address], [place], [address], Provider Name:David Harris, 01/21/2025 02:00:00 PM, [address] [place] [address] [address], [place], [address], Insurance Providers Payer Name Payer Address Payer Phone Subscriber Number Group Number Insured Name Patient Relationship to Insured Coverage Start Date Coverage End Date MEDICAID [address] [place] [id number] Sierra Michele Self - patient is the insured Medical (General) History Medical History History ICD Code Anxiety F41.9 Seizure disorder G40.909 Mild obesity E66.9 Gastroesophageal reflux disease, esophag itis presence not specified K21.9 Arthritis M19.90 Low back pain, unspecified b ack pain laterality, unspecified chronicity, with sciatica presence unspecified M54.5 right parieto-occipital lobe AVM resecte d 1999, 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 tobacco dependence 2014 2.4 cm right ovarian cyst 2017. Atypical chest pain, negative perf usion test depression, treated at [facility], has a prescriber chronic dermatitis, Dr. Toney, dermatolo gist, [facility] sleep apnea carpal tunnel syndrome, left overweight status migrainosus obstructive sleep apnea April 2020 left homonymous hemianopsia history of panic attacks Surgical History Surgery Date(Month/Year) No history tubal ligation colonoscopy endometrial biopsy, proliferative endome trium 2015 LEEP procedure 1999 right occipital craniotomy re: AVM malfo rmation 05/1999 Hospitalization History Reason Date(Month/Year) No history [facility], craniotomy for AVM 1999
--- NOTE | 2024-05-28 15:43 | ECG_ITS ---
Test Reason : preop Blood Pressure : / mmHG Vent. Rate : 083 BPM Atrial Rate : 083 BPM P-R Int : 138 ms QRS Dur : 082 ms QT Int : 344 ms P-R-T Axes : 063 005 024 degrees QTc Int : 404 ms Normal sinus rhythm Nonspecific ST abnormality Abnormal ECG When compared with ECG of 08-MAY-2024 09:53, No significant change was found Referred By: David Harris Electronically Signed By:GRIFFIN SNIDER MD
== END 2024-05-28 15:34 | disposition home or self-care (01) ==
LOC: HO.XRAY 15:33
PROVIDERS: PCP Internal Medicine Medical Oncology; Visit Provider Internal Medicine Medical Oncology
DX: Z01.818 Encounter for other preprocedural examination (principal); G40.909 Epilepsy, unspecified, not intractable, without status epilepticus; E66.9 Obesity, unspecified; M54.9 Dorsalgia, unspecified; M25.511 Pain in right shoulder
CPT/HCPCS: 71046; 73030; 93005

== ENCOUNTER → 2024-05-28 15:43 | Outpatient (BNV) | payer MEDICAID, SELFPAY | PROVIDERS: PCP Internal Medicine Medical Oncology; Visit Provider Internal Medicine Cardiovascular Disease | DX: R94.31 Abnormal electrocardiogram [ECG] [EKG] (principal) | CPT/HCPCS: 93010 ==

== ENCOUNTER → 2024-05-28 15:54 | Outpatient (BNV) | payer MEDICAID, SELFPAY | PROVIDERS: PCP Internal Medicine Medical Oncology; Visit Provider Radiology Diagnostic Radiology | DX: G40.909 Epilepsy, unspecified, not intractable, without status epilepticus (principal); M54.9 Dorsalgia, unspecified; Z01.818 Encounter for other preprocedural examination | CPT/HCPCS: 71046; 73030 ==

== ENCOUNTER 2024-05-29 10:10 | Outpatient (REF) | payer MEDICAID, SELFPAY ==
--- OUTSIDE RECORDS SUMMARY | 2024-05-29 10:15 | XMS_ITS ---
Author Organization David Harris III, MD Address [address] [place] [address] Care Team Providers Care Epidemiology Intern Name Role Phone David Harris Primary Care [...] day Active Ketoconazole 2 % 1 application Spray Gunner ally Twice a day for 21 days [...] Zonisamide 100 mg TAKE 1 CAPSULE BY [facility] TWICE A DAY Active Nitroglycerin 0.4 MG [...] Date Provider Diagnosis David Harris III, MD [address] [place] [address] [place] [address] 05/28/2024 David Harris Epilepsy G40.909 ; Pre-op [...] a day Ketoconazole 2 % 1 application Spray Gunner ally Twice a day for 21 days [...] 100 mg TAKE 1 CAPSULE BY [facility] TWICE A DAY Nitroglycerin 0.4 MG 1 [...] mammogram Provider Name:David Harris, 08/15/2024 10:30:00 AM, [address] [place] [address] [address], [place], [address], Provider Name:David Harris, 01/21/2025 02:00:00 PM, [address] [place] [address] [address], [place], [address], Progress Notes * Lisset VARELAOB: 8 (54 yo F)Acc No.[id number]:05/28/2024 Patient:?Sierra VARELA Provider:?David Harris MD :1970???Age:54 Y???Sex:Female D ate:05/28/2024 Address:[address] [place] [address] [place], [place] [id number] Subjective: * Chief Complaints: * ???1. 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 * Surgical History:?right occi pital craniotomy re: AVM malformation 05/1999, LEEP procedure 1999, endometrial biopsy, proliferative endometrium 2014, colonoscopy , tubal ligation , No history . * Hospitalization/Major Diagno stic Procedure:?[facility], craniotomy for AVM 1999, No history [...] (Standard)?Tobacco use:?Former smoker ???She was born in [place], [place]. She has been to [place] for [...] Harris MD Date:?05/01 Generated for Sarah romo/Kay/Negritoitting on:?05/29/2024 10:14 AM EST History and Physical Notes * HPI [...]
--- OUTSIDE RECORDS SUMMARY | 2024-05-29 10:15 | XMS_ITS ---
Author Organization David Harris III, MD Address [address] [place] [address] Care Team Providers Care Paper Slitter Name Role Phone David Harris Primary Care Provider [phone] REASON FOR VISIT PT Orders / Med [...] 30 Active Ketoconazole 2 % 1 application Subacute Nurse ally Twice a day for 21 days Active Zolpidem Tartrate ER 12.5 MG 1 Tablet Orally At bed time As needed Active ALPRAZolam 1 MG 1 tablet Orally thre e times a day Active Escitalopram Oxalate 20 MG 1 tablet Oral ly Once a day Active Encounters Encounter Location Date Provider Diagnosis David Harris III, MD [address] [place] [address] [place] [address] 05/10/2024 David Harris Plan Of Treatment Next Appt Details Provider Name:David Harris, 08/15/2024 10:30:00 AM, [address], [place], [address], Provider Name:David Harris, 01/21/2025 02:00:00 PM, [address], [place], [address], Progress Notes * Lisset VARELAOB: 8 (54 yo F)Acc No.[id number]:05/10/2024 Patient:?Sierra VARELA :1970???Age:54 Y???Sex:Female Address:[address] [place], [place] [address], [place], [address] Subjective: * Chief Complaints: * ???PT Orders [...] true * Date:? Generated for Sarah romo/Kay/Gurpreet on:?05/29/2024 10:15 AM EST
--- OUTSIDE RECORDS SUMMARY | 2024-05-29 10:15 | XMS_ITS ---
Author Organization David Harris III, MD Address [address] [place] [address] Care Team Providers Care Preschool Teacher Assistant Name Role Phone David Harris Primary Care Provider [phone] REASON FOR VISIT Message Encounters Encounter Location Date Provider Diagnosis David Harris III, MD [address] [place] [address] 05/15/2024 David Harris Plan Of Treatment Next Appt Details Provider Name:David Harris, 08/15/2024 10:30:00 AM, [address] [place] [address] [place], [address], Provider Name:David Harris, 01/21/2025 02:00:00 PM, [address] [place] [address] [place], [address], Progress Notes * Lisset VARELAOB: 8 (54 yo F)Acc No.[id number]:05/15/2024 Patient:?Sierra VARELA :1970???Age:54 Y???Sex:Female Address:[place], [address] * true * Date:? Generated for Printi ng/Faajg/eTransmitting on:?05/29/2024 10:15 AM EST
--- OUTSIDE RECORDS SUMMARY | 2024-05-29 10:15 | XMS_ITS | Patient Health Record ---
Author Organization David Harris III, MD Address [address] [place] [address] Care Team Providers [facility] Teacher Name Role Phone David Harris Primary Care Provider Allergies Allergen (clinical drug ingredient) Drug/Non Drug Allergy documented on EMR Reaction Allergy Type Onset Date Status No Known Drug Allergy Unknown Drug Allergy Active Results Component Value Reference Range Notes Phenytoin Dilantin Reviewed date:01/15/2024 08:02:24 AM Interpretation: Performing Lab:[facility], [address] [place] [address] Notes/Report: [id number] 2200 Phenytoin Dilantin 24.3 [...] date:07/03/2023 07:56:42 AM Interpretation: Performing Lab: Notes/Report: [facility]'s [address] [place] [address] Mammography Report Signed Patient: Sierra Michele MR#: [id number] 45 : 1970 Acct:[id number] Age/Sex: 53 / F ADM Date: 07/01/23 Loc: HO.MAMMO Attending Dr: David Harris MD Ordering Physician: David Harris MD Results: 2Benign Findings Date of Service: 07/01/23 Follow Up: 1 Year From Orig inal Mammogram Procedure(s): MM tomosynthesis diagnostic LT Accession Number(s): [id number] cc: David Harris MD EXAMINATION: MM DIAGNOSTIC [...] in OV> 07/01/23 1432 DD/ 1332 TD/TT: Technical Solutions Consultant: [place] [facility]'s [address] [place], [place] [address] Mammography Report Signed Patient: Sierra Michele MR#: [id number] [birth year] : 1970 Acct:[id number] Age/Sex: 53 / F ADM Date: 07/01/23 Loc: HO.MAMMO Attending Dr: David Harris MD Ordering Physician: David Harris MD Results: 2Benign Findings Date of Service: 07/01/23 Follow Up: 1 Year From Orig ina Mammogram Procedure(s): MM tomosynthesis diagnostic LT Accession Number(s): [id number] cc: David Harris MD EXAMINATION: MM DIAGNOSTIC [...] in OV> 07/01/23 1432 DD/ 1332 TD/TT: Technical Solutions Consultant: MAMMOGRAM DIGITAL BILATERAL SCREEN Reviewed date:01/18/2024 02:26:41 PM Interpretation:undefined Performing Lab: Notes/Report: undefined Complete Blood Count Auto Di ff Reviewed date:01/15/2024 08:02:24 AM Interpretation: Performing Lab:[facility], [address] [place] [address] Notes/Report: White Blood Count 4.4 4.8-10.8 X10*3/uL [...] Panel Reviewed date:01/15/2024 08:02:24 AM Interpretation: Performing Lab:[facility], [address] [place] [address] Notes/Report: Sodium 143 135-145 mmol/L Potassium 4.2 3.3-5.1 mmol/L Chloride 103 96-108 mmol/L Carbon Dioxide 30 22-29 mmol/L Anion Gap 14 12-20 Blood Urea Nitrogen 9 9-16 mg/dL Creatinine 0.64 0.5-1.4 mg/dL Estimated Glomerular Filt Rate > 60 NOTE: For -Syrian individuals, multiply the result by 1.210. Chronic [...] Valproate Reviewed date:01/15/2024 08:02:24 AM Interpretation: Performing Lab:[facility], [address] [place] [phone] Notes/Report: [id number] 2199 Valproate 91.2 50.0-100.0 mcg/mL Last dose was taken on 01/02/24 at 2200. PAP + HPV E6/E7 rfx 18/45 Reviewed date:02/22/2024 06:40:59 AM Interpretation: Performing Lab:[facility], [address] [place] [phone] Notes/Report: SEE SCANNED RESULTS IN EMR HPV 16 RNA TNP HPV 18/45 RNA TNP HPV mRNA E6/E7 Not Detected Not Detected Methodology: Cotton Classer Aide-Mediated Amplification This assay detects E6/E7 viral messenger RNA (mRNA) from 14 high-risk HPV types (16,18,31,33,35,39,45, 51,52,56,58,59,66,68). Cervical sources are required for HPV testing. If a vaginal source from a patient who has had a total hysterectomy with removal of cervix was submitted, please contact the testing laboratory for alternative testing options. For additional information, please refer to http://education.Gr[employer] A/faq/FA Q129v1 (This link if provided for information/ educational purposes only.) THIS TEST WAS PERFORMED AT: [facility] [address] [address] TYRELL ESCOBAR MD Thin Prep Source SEE [...] commonly, endometrial neoplasia. Clinical correlation is suggested. [place] [place] Winder SEE NOTE M, CT(ASCP) CT screening location: [address] [address] Review [place] Pathologist [place] PAP Infection SEE NOTE [...] Pathology Reviewed date:2024 07:37:28 AM Interpretation: Performing Lab:[facility], [address] [place] [phone] Notes/Report: -- ---- Name: Sierra Michele Age/Sex: 53/F : 1970 Unit#: [id number] Attend Dr: Chito Rodriguez MD Re02/27/24 Status : DEP REF Location: [facility] Disch: -- ---- SPEC : [id number] RECD : 02/27/24-9 STATUS: HALIMA NIXON NUM: [id number] JACOB: 02/27/24-1020 [facility] DR: Chito Rodriguez MD ENTERED: 02/27/24-13 39 [...] microscopic examination, multiple pieces in cassette [facility] Copies To: David Harris MD [address], [address] [place], [place] [id number] Chito Rodriguez MD [facility] [address] [place] [address] -- ---- Signed (signature on file) Cedric Garza MD 02/28/24 1246 -- ---- END OF REPORT Urinalysis Reviewed date:05/21/2024 06:10:55 AM Interpretation: Performing Lab:[facility], [address] [place] [phone] Notes/Report: Color Urine Yellow Appearance Urine Turbid PH 7.0 5.0-9.0 Glucose Urine UA Negative Negative mg/dL Urine Blood Negative Negative Specific [place] - Urine 1.020 1.005-1.025 Urine Protein Negative Neg-Trace mg/dL Urine Ketones Trace Negative mg/dL Nitrite Urine Negative Negative Leukocyte Esterase Urine Negative Negative Urine Culture Reviewed date:05/21/2024 06:10:55 AM Interpretation: Performing Lab:[facility], [address] [place] [address] Notes/Report: O:STAEPI Staphylococcus epidermidis Urine Culture Quant Urine Culture 10,000 to 50,000 cfu/mL Clindamycin <=0.25 Erythromycin >=8 Nitrofurantoin <=16 Oxacillin >=4 Penicillin-G >=0.5 Tetracycline >=16 Trimethoprim/Sulfamethox azole >=320 Vancomycin 2 Complete Blood Count Auto Di ff Reviewed date:05/21/2024 06:10:55 AM Interpretation: Performing Lab:[facility], [address] [place] [address] Notes/Report: White Blood Count 6.7 4.8-10.8 X10*3/uL [...] Panel Reviewed date:05/21/2024 06:10:55 AM Interpretation: Performing Lab:[facility], [address] [place] [phone] Notes/Report: Sodium 142 135-145 mmol/L Potassium 4.6 [...] Sensitivity Reviewed date:05/21/2024 06:10:55 AM Interpretation: Performing Lab:[address] [address] Notes/Report: Troponin-I High Sensitivity < 2.7 <3.5-17.0 ng/L The [place] high sensitivity Troponin-I results should be used in conjunction with other diagnostic information such as ECG, clinical observations and information, and patient symptoms to aid in the diagnosis of [place]. UA CC w/rflx Micro + Cult Reviewed date:05/21/2024 06:10:55 AM Interpretation: Performing Lab:[facility], [address] [place] [address] Notes/Report: [id number] 1003 Urine, Clean Catch Color Urine Yellow Appearance Urine Clear PH 8.0 5.0-9.0 Glucose Urine UA Negative Negative mg/dL Urine Blood Negative Negative Specific [place]well - Urine <= 1.005 1.005-1.025 Urine Protein Negative Neg-Trace mg/dL Urine Ketones Negative Negative mg/dL Nitrite Urine Negative Negative Leukocyte Esterase Urine Negative Negative COVID-19 ID NOW ([place]) Reviewed date:05/21/2024 06:10:55 AM Interpretation: Performing Lab:[address] [address] Notes/Report: IDNOW Serial# [id number] COVID-19 Test Negative Negative COVID-19 Note See [...] with other viruses. Testing facilities within the [facility] and its territories are required to [...] by authorized laboratories. Testing performed on the ROKT ID NOW utilizing NAAT. CT cervical spine wo con Reviewed date:05/21/2024 06:10:55 AM Interpretation: Performing Lab: Notes/Report: [address] [address] [address] Scan Report Signed Patient: Sierra Michele MR#: [id number] 45 : 1970 Acct:[id number] Age/Sex: 54 / F ADM Date: 05/08/24 Loc: HO.ED Attending Dr: Ordering Physician: Dario Regan MD Date of Service: 05/08/24 Procedure(s): CT cervical spine wo IV con Accession Number(s): [id number] cc: David Harris MD; Dario Regan MD [...] 05/08/24 1342 DD/ 1116 TD/TT: 05/08/24 1157 Technical Solutions Consultant: [address] [address] [address] Scan Report Signed Patient: Sierra Michele MR#: [id number] [birth year] : 1970 Acct:[id number] Age/Sex: 54 / F ADM Date: 05/08/24 Loc: HO.ED Attending Dr: Ordering Physician: Dario Regan MD Date of Service: 05/08/24 Procedure(s): CT cervical spine wo IV con Accession Number(s): [id number] cc: David Harris MD; Dario Regan MD [...] Juan Jose Martinez MD 05/08/2024 01:42 PM [facility] Dictated By: Juan Jose Martinez Signed By: <Electronically signed by Juan Jose Martinez in OV> 05/08/24 1342 DD/ 1116 TD/TT: 05/08/24 1157 Technical Solutions Consultant: CT head/brain wo con Reviewed date:05/21/2024 06:10:55 AM Interpretation: Performing Lab: Notes/Report: [address] [address] [address] Scan Report Signed Patient: Sierra Michele MR#: [id number] [birth year] : 1970 Acct:[id number] Age/Sex: 54 / F ADM Date: 05/08/24 Loc: HO.ED Attending Dr: Ordering Physician: Dario Regan MD Date of Service: 05/08/24 Procedure(s): CT head/brain wo IV con Accession Number(s): [id number] cc: David Harris MD; Dario Regan MD [...] Juan Jose Martinez MD 05/08/2024 01:42 PM [facility] Dictated By: Juan Jose Martinez Signed By: <Electronically signed by Juan Jose Martinez in OV> 05/08/24 1342 DD/ 1116 TD/TT: 05/08/24 1157 Technical Solutions Consultant: [place] [address] CT Scan Report Signed Patient: Sierra Michele MR#: [id number] [birth year] : 1970 Acct:[id number] Age/Sex: 54 / F ADM Date: 05/08/24 Loc: HO.ED Attending Dr: Ordering Physician: Dario Regan MD Date of Service: 05/08/24 Procedure(s): CT head/brain wo IV con Accession Number(s): [id number] cc: David Harris MD; Dario Regan MD [...] 05/08/24 1342 DD/ 1116 TD/TT: 05/08/24 1157 Technical Solutions Consultant: XR chest 2V (Not yet reviewe d by provider) Interpretation: Performing Lab: Notes/Report: [address] [address] XRay Report Signed Patient: Sierra Michele MR#: [id number] [birth year] : 1970 Acct:[id number] Age/Sex: 54 / F ADM Date: 05/28/24 Loc: HO.XRAY Attending Dr: David Harris MD Ordering Physician: David Harris MD Date of Service: 05/28/24 Procedure(s): XR chest 2V Accession Number(s): [id number] cc: David Harris MD EXAMINATION: Chest 2 views and right shoulder 2 views. CLINICAL INDICATION: Epilepsy. Preop evaluation. COMPARISON: Chest 08/31/2018. Right shoulder 5 09/17/2011 FINDINGS: CHEST: The lungs are well-expanded and clear acute process. The heart size and pulmonary vascularity is normal. There is mild spondylosis dorsal spine. No aggressive lytic or sclerotic process seen. RIGHT SHOULDER: The glenohumeral and AC joint spaces preserved normal. No visible acute fracture, dislocation or subluxation seen. No bony erosive changes. The soft tissues are normal. XR/XR chest 2V IMPRESSION: Unremarkable chest. Unremarkable right shoulder exam. Electronically signed by: Amaury Gould MD 05/29/2024 09:02 AM EST RP Dictated By: Amaury Gould MD Signed By: <Electronically signed by Amaury Gould MD in OV> 05/29/24 0902 DD/ 1554 TD/TT: 05/28/24 1620 Technical Solutions Consultant: [place] [address] XRay Report Signed Patient: Sierra Michele MR#: [id number] 45 : 1970 Acct:[id number] Age/Sex: 54 / F ADM Date: 05/28/24 Loc: HO.XRAY Attending Dr: David Harris MD Ordering Physician: David Harris MD Date of Service: 05/28/24 Procedure(s): XR lucian st 2V Accession Number(s): [id number] cc: David Harris MD EXAMINATION: Chest 2 views and right shoulder 2 views. CLINICAL INDICATION: Epilepsy. Preop evaluation. COMPARISON: Chest 08/31/2018. Right shoulder 5 09/17/2011 FINDINGS: CHEST: The lungs are well-expanded and clear acute process. The heart size and pulmonary vascularity is normal. There is mild spondylosis dorsal spine. No aggressive lytic or sclerotic process seen. RIGHT SHOULDER: The glenohumeral and AC joint spaces preserved normal. No visible acute fracture, dislocation or subluxation seen. No bony erosive changes. The soft tissues are normal. XR/XR chest 2V IMPRESSION: Unremarkable chest. Unremarkable right shoulder exam. Electronically slao d by: Amaury Gould MD 05/29/2024 09:02 AM EST RP Dictated By: Amaury Gould MD Signed By: <Electronically signed by Amaury Gould MD in OV> 05/29/24 0902 DD/ 1554 TD/TT: 05/28/24 1620 Technical Solutions Consultant: [facility] XR shoulder RT min 2V (Not y et reviewed by provider) Interpretation: Performing Lab: Notes/Report: [facility] [address] [place] [address] XRay Report Signed Patient: Sierra Michele MR#: [id number] 45 : 1970 Acct:[id number] Age/Sex: 54 / F ADM Date: 05/28/24 Loc: HO.XRAY Attending Dr: David Harris MD Ordering Physician: David Harris MD Date of Service: 05/28/24 Procedure(s): XR shoulder RT min 2V Accession Number(s): [id number] cc: David Harris MD EXAMINATION: Chest 2 views and right shoulder 2 views. CLINICAL INDICATION: Epilepsy. Preop evaluation. COMPARISON: Chest 08/31/2018. Right shoulder 5 09/17/2011 FINDINGS: CHEST: The lungs are well-expanded and clear acute process. The heart size and pulmonary vascularity is normal. There is mild spondylosis dorsal spine. No aggressive lytic or sclerotic process seen. RIGHT SHOULDER: The glenohumeral and AC joint spaces preserved normal. No visible acute fracture, dislocation or subluxation seen. No bony erosive changes. The soft tissues are normal. XR/XR shoulder RT min 2V IMPRESSION: Unremarkable chest. Unremarkable right shoulder exam. Electronically signed by: Amaury Gould MD 05/29/2024 09:02 AM [facility] Dictated By: Amaury Gould MD Signed By: <Electronically signed by Amaury Gould MD in OV> 05/29/24 0902 DD/ 1555 TD/TT: 05/28/24 1620 Technical Solutions Consultant: [facility] [address] [place] [address] XRay Report Signed Patient: Sierra Michele MR#: [id number] 45 : 1970 Acct:[id number] Age/Sex: 54 / F ADM Date: 05/28/24 Loc: HO.XRAY Attending Dr: David Harris MD Ordering Physician: David Harris MD Date of Service: 05/28/24 Procedure(s): XR shoulder RT min 2V Accession Number(s): [id number] cc: David Harris MD EXAMINATION: Chest 2 views and right shoulder 2 views. CLINICAL INDICATION: Epilepsy. Preop evaluation. COMPARISON: Chest 08/31/2018. Right shoulder 5 09/17/2011 FINDINGS: CHEST: The lungs are well-expanded and clear acute process. The heart size and pulmonary vascularity is normal. There is mild spondylosis dorsal spine. No aggressive lytic or sclerotic process seen. RIGHT SHOULDER: The glenohumeral and AC joint spaces preserved normal. No visible acute fracture, dislocation or subluxation seen. No bony erosive changes. The soft tissues are normal. XR/XR shoulder RT min 2V IMPRESSION: Unremarkable chest. Unremarkable right shoulder exam. Electronically salo d by: Amaury Gould MD 05/29/2024 09:02 AM EST Dictated By: Amaury Gould MD Signed By: <Electronically signed by Amaury Gould MD in OV> 05/29/24 0902 DD/ 1555 TD/TT: 05/28/24 1620 Technical Solutions Consultant: MARC Reason For Referral Reason Consult and treat [...] Provider Specialty Podiatry General Notes Luana Phillips [facility] 07/05/2023 03:01:34 PM > Referral faxed Referral Priority Stat Medications Medication SIG (Take, Route, Frequency, Duration) Notes Start Date End Date Status Zonisamide 100 mg TAKE 1 CAPSULE BY [facility] TWICE A DAY Active Escitalopram Oxalate 20 MG 1 tablet Oral ly Once a day Active Zolpidem Tartrate ER 12.5 MG 1 Tablet Orally At bed time As needed Active ALPRAZolam 1 MG 1 tablet Orally thre e times a day Active Ketoconazole 2 % 1 application Home Health Attendant ally Twice a day for 21 days Active Doxepin HCl 10 mg 1 Capsule Orally at bed time Active Magnesium Oxide -Mg Supplement 400 (240 Mg) MG 1 tablet with food Orally Once a day Active Naproxen 500 mg TAKE [...] a day on an empty stomach Active Nitroglycerin 0.4 MG 1 tablet under the tongue and allow to dissolve. Take every 5 minutes up to 3 times i Sublingual Three times a day for 30 days Active Social History Tobacco Use: Social [...] Problem Status W/U Status Risk Notes Problem 6529907 Former smoker (Z87.891) Active confirmed She has been free of tobacco for 6 weeks. We discussed smoking cessation techniques. We formed a strategy to prevent relapse in times of stress and illness. Problem 512129627884827 Obesity (BMI 30.0-34.9) (E66.9) Active confirmed She has lost 9 pounds in her body mass index is now 32.6. We discussed she could continue weight loss at a rate of one half of a pound per week. Problem Epilepsy (47146908) Epilepsy (G40.909) Active confirmed She has had no seizures since her last visit. Comprehensive blood work has been ordered. No change in her medications has been made. She will follow up with neurology regularly. Problem 741436301 Chronic cluster headache, intractable (G44.021) Active confirmed We are going to refer her back to her neurologist for follow-up of the subarachnoid hemorrhage and the headaches to see if any novel agents can be employed. Problem 040603461 Low back pain (M54.5) Active confirmed She continues t o have chronic intermittent low back pain but will continue her current medication. Problem Gastroesophageal reflux disease without esophagitis (872536504) Gastroesophagea l reflux disease without esophagitis (K21.9) Active confirmed Her reflux symptoms are well controlled with omeprazole. She was continued on this medicine. Problem 741580910 Panic attacks (F41.0) Active confirmed She was referre d back to mental health and I have given her a trial of fluoxetine. She will continue the alprazolam and other medications. Problem Ataxia () Ataxia (R27.0) Active confirm ed Problem Depressive disorder (disorder) (58263006) Depression, unspecified depression type (F32.9) Active confirmed Her depression has been mild and she has been compliant with her medication. No change was necessary today. She is conducting all of the activities of daily life without impairment. She continues under the care of the mental health provider. She has a therapist, Becka. Problem 26372180 Sleep apnea in adult (G47.30) Active confirmed No change in her therapy was needed today. She denies daytime somnolence.She has not been using her CPAP due to some disruption in her home environment which is temporary. She plans to resume using it when she can. 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 Her Dilantin level was 3.1. She was reloaded. A repeat level has been ordered today. She was encouraged to stay in touch with the neurologist about the management of her epilepsy. Problem 534207310 AMOS III (cervical intraepithelial neoplasia grade III) with severe dysplasia (D06.9) Active confirmed She says that she is seeing the tour escort at the recommended intervals. Problem 692797663 Arteriovenous malformation (Q27.30) Active confirmed The malformatio n was resected many years ago. Problem 29069232894736849 Right ovarian cyst (N83.201) Active confirmed This will be followed by the tour escort. Problem 193961302 Blind left eye (H54.40) Active confirmed She reports no change in the vision in the right eye which she uses. I reiterated with her the necessity of seeing an pyridine operator at least annually to preserve the vision in the functioning eye. Problem 586804751726745 Left carpal tunnel syndrome (G56.02) Active confirmed Vital Signs Heart Rate 80 /min 05/28/2024 Temperature 98.8 degrees Fahrenheit 05/28/2024 Blood pressure diastolic 68 mm Hg 05/28/2024 Height 66 in 05/28/2024 Blood pressure systolic 140 mm Hg 05/28/2024 Weight 195 lbs 05/28/2024 BMI 31.47 kg/m2 05/28/2024 Encounters Encounter Location Date Provider Diagnosis David Harris III, MD [address] [place] [address] [place] [address] 05/28/2024 David Wilkersonrne Epilepsy G40.909 ; P re-op evaluation Z01.818 ; Overweight (BMI 25.0-29.9) E66.3 ; Back pain M54.9 ; Breast screening Z12.31 and Acute pain of right shoulder M25.511 David Harris III, MD [address] [place] [address] [place] [address] 07/04/2023 David Harris Epilepsy G40.909 ; S [...] Subcutaneous mass R22.9 David Harris III, MD [address] [place] [address] [place] [address] 07/11/2023 David Harris Epilepsy G40.909 ; Depression, unspecified depression type F32.9 ; Gastroesophageal reflux disease without esophagitis K21.9 ; Sleep apnea in adult G47.30 ; Low back pain M54.5 ; Blind left eye H54.40 ; Chronic cluster headache, intractable G44.021 ; Former smoker Z87.891 ; Obesity (BMI 30.0-34.9) E66.9 and Left foot pain M79.672 David Harris III, MD [address] [place] [address] [place] [address] 01/03/2024 David Harris Epilepsy G40.909 ; Gastroesophageal reflux disease without esophagitis K21.9 ; Sleep apnea in adult G47.30 ; Depression, unspecified depression type F32.9 ; Arteriovenous malformation Q27.30 ; AMOS III (cervical intraepithelial neoplasia grade III) with severe dysplasia D06.9 ; Blind left eye H54.40 ; Former smoker Z87.891 and Obesity (BMI 30.0-34.9) E66.9 David Harris III, MD [address] [place] [address] [place] [address] 01/18/2024 David Harris Epilepsy G40.909 ; Urinary tract infection, site not specified N39.0 ; Sleep apnea in adult G47.30 ; Gastroesophageal reflux disease without esophagitis K21.9 ; Depression, unspecified depression type F32.9 ; Tobacco dependence F17.200 and Chronic cluster headache, intractable G44.021 David Harris III, MD [address] [place] [address] [place] [address] 04/17/2024 David Harris Epilepsy G40.909 ; Obesity (BMI 30.0-34.9) E66.9 ; Depression, unspecified depression type F32.9 ; Gastroesophageal reflux disease without esophagitis K21.9 and Sleep apnea in adult G47.30 David Harris III, MD [address] [place] [address] [place] [address] 07/06/2023 David Harris III, MD [address] [place] [address] [place] [address] 01/03/2024 David Harris III, MD [address] [place] [address] [place] [address] 05/07/2024 David Harris III, MD [address] [place] [address] [place] [address] 05/09/2024 David Harris III, MD [address] [place] [address] [place] [address] 05/10/2024 David Harris III, MD [address] [place] [address] [place] [address] 05/15/2024 David Harris Assessments Encounter Date Diagnosis [...] Her heartburn has been well controlled with xwft-jeh-cnwuglj medications. She has been compliant with the [...] Her heartburn has been well controlled with [id number]-jqj-[id number] medications. She has been compliant with the [...] with her the necessity of seeing an pyridine operator at least annually to preserve the vision in the functioning eye. 01/03/2024 AMOS III (cervical intraepithelial neoplasia grade III) with severe dysplasia (ICD-10 - D06.9) She says that she is seeing the tour escort at the recommended intervals. 01/18/2024 Tobacco dependence [...] She says that she is seeing the tour escort at the recommended intervals. 07/11/2023 Chronic cluster [...] with her the necessity of seeing an pyridine operator at least annually to preserve the vision [...] with her the necessity of seeing an pyridine operator at least annually to preserve the vision [...] her that she needs to see the flat lock machine operator. She will call my office afterwards and [...] 01/18/2024 ECG 12 lead EKG 05/28/2024 XR chest 2V 05/28/2024 XR shoulder RT min 2V 05/28/2024 XR lumbar spine 2-3V 07/21/2021 Next Appt Details Provider Name:David Wilkersonrne, 08/15/2024 10:30:00 AM, [address] [place] [address] [address], [place], [address], Provider Name:Dvaid Harris, 01/21/2025 02:00:00 PM, [address] [place] [address] [address], [place], [address], Insurance Providers Payer Name Payer Address Payer Phone Subscriber Number Group Number Insured Name Patient Relationship to Insured Coverage Start Date Coverage End Date MEDICAID [address] [place] [id number] Sierra Michele Self - patient is the insured Medical (General) History Medical History History ICD Code Anxiety F41.9 Seizure disorder G40.909 Mild obesity E66.9 Gastroesophageal reflux disease, esophag itis presence not specified K21.9 Arthritis M19.90 Low back pain, unspecified b ack pain laterality, unspecified chronicity, with sciatica presence unspecified M54.5 right parieto-occipital lobe AVM resecte d 1999, [facility] chronic cystitis but biopsy 1995 AMOS-III, 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 tobacco dependence 2014 2.4 cm right ovarian cyst 2017. Atypical chest pain, negative perf usion test depression, treated at [facility], has a prescriber chronic dermatitis, Dr. 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
[2024-05-29 10:34] LABS: MANUAL DIFF FLAG NO
[2024-05-29 10:55] LABS: Basophils Percent Auto 0.7 % (0-2); Eosinophils Absolute Auto 0.2 X10*3/uL (0.0-0.4); Eosinophils Percent Auto 2.7 % (0-4); Hematocrit 35.7 % (37.0-47.0); Hemoglobin 11.7 g/dl (12.0-16.0); Imm Gran Abs Auto 0.02 X10*3/uL (0.00-0.03); Imm Gran Pct Auto 0.3 % (0.0-0.4); Lymphocytes Absolute Auto 2.3 X10*3/uL (1.2-4.9); Lymphocytes Percent Auto 39.3 % (20-40); Mean Corpuscular HGB Conc 32.8 g/dl (31.0-35.0); Mean Corpuscular Hemoglobin 33.4 pg (27.0-33.0); Mean Platelet Volume 10.4 fL (9.4-12.3); Monocytes Absolute Auto 0.6 X10*3/uL (0.1-1.2); Monocytes Percent Auto 9.5 % (2-11); Neutrophils Absolute Auto 2.8 x10*3/uL (2.0-8.3); Neutrophils Percent Auto 47.5 % (45-73); Platelet Count 171 X10*3/uL (160-400); Red Cell Distribution Width 13.8 % (11.0-16.0); White Blood Count 5.9 X10*3/uL (4.8-10.8)
[2024-05-29 12:02] LABS: Alanine Aminotransferase 21 U/L (0-31); Albumin Level 3.8 g/dL (3.5-5.0); Alkaline Phosphatase 104 U/L (39-117); Anion Gap 12 (12-20); Aspartate Amino Transferase 19 U/L (5-31); Bilirubin Total 0.3 mg/dL (0.0-1.0); Blood Urea Nitrogen 7 mg/dL (9-16); Carbon Dioxide 27 mmol/L (22-29); Chloride 112 mmol/L (96-108); Cholesterol 181 mg/dL (<200); Estimated Glomerular Filt Rate > 60; Glucose Fasting 102 mg/dL (60-99); HDL Cholesterol 52 mg/dL (>40); LDL Cholesterol Calculated 107 mg/dL (<100); Magnesium 2.1 mg/dL (1.6-2.6); Potassium 4.5 mmol/L (3.3-5.1); Sodium 146 mmol/L (135-145); Total Protein 6.3 g/dL (6.5-8.0); Triglycerides 112 mg/dL (<150)
[2024-05-29 13:05] LABS: Phenytoin Dilantin 25.9 ug/mL (10.0-20.0)
== END 2024-05-29 10:11 | disposition home or self-care (01) ==
LOC: HO.LAB 10:10
PROVIDERS: PCP Internal Medicine Medical Oncology; Visit Provider Internal Medicine Medical Oncology
DX: Z01.818 Encounter for other preprocedural examination (principal); G40.909 Epilepsy, unspecified, not intractable, without status epilepticus; E66.3 Overweight; M25.511 Pain in right shoulder; M54.9 Dorsalgia, unspecified
CPT/HCPCS: 36415; 80053; 80061; 80185; 83735; 85025

== ENCOUNTER 2024-08-01 08:29 | Outpatient (REF) | payer MEDICAID, SELFPAY ==
--- OUTSIDE RECORDS SUMMARY | 2024-08-01 09:03 | XMS_ITS ---
Author Organization David Harris III, MD Address [address] [place] [address] Care Team Providers Care Manager Lean Name Role Phone David Harris Primary Care Provider [phone] REASON FOR VISIT Dizziness Encounters Encounter Location Date Provider Diagnosis David Harris III, MD [address] [place] [address] [place] [address] 06/28/2024 David Harris Plan Of Treatment Next Appt Details Provider Name:David Harris, 08/15/2024 10:30:00 AM, [address] [place] [address] [place], [address], Provider Name:David Harris, 01/21/2025 02:00:00 PM, [address] [place] [address] [place], [address], Progress Notes * Lisset VARELAOB: 8 (54 yo F)Acc No.[id number]:06/28/2024 Patient:?Sierra VARELA :1970???Age:54 Y???Sex:Female Address:[place], [address] * true * Date:? Generated for Printi demetrius/Kay/eTransmitting on:?08/01/2024 09:02 AM EST
--- OUTSIDE RECORDS SUMMARY | 2024-08-01 09:03 | XMS_ITS ---
Author Organization David Harris III, MD Address [address] [place] [address] [address] [place] [place] [id number] Care Team Providers Care Field Staff Name Role Phone David Harris Primary Care Provider Allergies Allergen (clinical drug ingredient) Drug/Non Drug Allergy documented on EMR Reaction Allergy Type Onset Date Status No Known Drug Allergy Unknown Drug Allergy Active Results Component Value Reference Range Notes Lipid Panel Reviewed date:06/05/2024 04:16:41 PM Interpretation: Performing Lab:[facility], [address] [place] [id number] Notes/Report: Triglycerides 112 <150 mg/dL Desirable Triglyceride: less than 150 mg/dL Borderline High Triglyceride 150-199 mg/dL High Triglyceride: 200-499 mg/dL Very High Triglyceride: greater than or equal to 5OO mg/dL Cholesterol 181 <200 mg/dL Desirable Cholesterol: less than 200 mg/dL Borderline High Cholesterol: 200-239 mg/dL High Cholesterol: greater than 239 mg/dL LDL Cholesterol Calculated 107 <100 mg/dL Desirable LDL: less than 100 mg/dL Near Optimal/Above Optimal LDL: 110-129 mg/dL Borderline High LDL: 130-159 mg/dL High LDL: 160-189 mg/dL Very High LDL: greater than or equal to 190 mg/dL HDL Cholesterol 52 >40 mg/dL Desirable HDL: greater than 40 mg/dL Note: This HDL assay may give artificially low results in patients with liver disease. Phenytoin Dilantin Reviewed date:06/05/2024 04:16:41 PM Interpretation: Performing Lab:[facility], [address] [place] [phone] Notes/Report: Phenytoin Dilantin 25.9 10.0-20.0 ug/mL Critical value for DILANTIN: Results called to and read back by: DR HARRIS Person calling: LIZZIE Date: 05/29/24 Time:1304 REASON FOR VISIT Clearance for Bilateral upper eyelid blepharoplasty and Bilateral upper eyelid ptosis repair on 06/08/2024, Recent fall at home due to tripping, Lump on left thigh x 1 month, Painful right shoulder, The right foot Medications Medication SIG (Take, Route, Frequency, Duration) Notes Start Date End Date Status Escitalopram Oxalate 20 MG 1 tablet Oral ly Once a day Active Zolpidem Tartrate ER 12.5 MG 1 Tablet Orally At bed time As needed Active ALPRAZolam 1 MG 1 tablet Orally thre e times a day Active Phenytoin Sodium Extended 100 mg TAKE 3 CAPSULES BY MOUTH EVERY 12 HOURS Active Nitroglycerin 0.4 MG 1 tablet under the tongue and allow to dissolve. Take every 5 minutes up to 3 times i Sublingual Three times a day Active Ketoconazole 2 % 1 application Internal Control Specialist ally Twice a day for 21 days [...] 100 mg TAKE 1 CAPSULE BY MO UTH TWICE A DAY Active Magnesium Oxide -Mg Supplement 400 (240 [...] Problem Status W/U Status Risk Notes Problem [id number] Overweight (BMI 25.0-29.9) (E66.3) Active confirmed He has lost 7 pounds dropping from 202 down 295 pounds. Her body mass index is 31.47. We discussed her weight loss strategy in detail today. Problem [id number] Acute pain of right shoulder (M25.511) Active confirmed She had a fall at home and had a laceration on her right eyebrow and severe pain in her right shoulder and right foot. She went to the [facility] emergency and had x-rays that showed no fracture. She will rest the joint use heat and ibuprofen. A follow-up visit was arranged. Problem [id number] Ptosis, both eyelids (H02.403) Active confirmed He is scheduled to have a bilateral blepharoplasty in the near future. I have examined her carefully and she is medically cleared for this procedure with the average minimal risk of a healthy patient. 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 ; Overweight (BMI 25.0-29.9) E66.3 ; Acute pain of right shoulder M25.511 ; Sleep apnea in adult G47.30 ; Depression, unspecified depression type F32.9 ; Gastroesophageal reflux disease without esophagitis K21.9 ; Arteriovenous malformation Q27.30 ; 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 She is medically cleared for the bilateral blepharoplasty Her blood work and EKG are unremarkable. The swelling over the right eyebrow should be resolved by June 08 she is medically cleared for surgery at that time. The hands assembler should make a final decision about whether surgery should be done when he sees her at that time. 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 She says she has been compliant with her medication. She states emphatically that the fall at home was because she tripped and was not due to a seizure. 05/28/2024 Overweight (BMI 25.0-29.9) (ICD-10 - E66.3) He has lost 7 pounds dropping from 202 down 295 pounds. Her body mass index is 31.47. We discussed her weight loss strategy in detail today. 05/28/2024 Acute pain of right shoulder (ICD-10 - M25.511) She had a fall at home and had a laceration on her right eyebrow and severe pain in her right shoulder and right foot. She went to the [facility] emergency and had x-rays that showed no fracture. She will rest the joint use heat and ibuprofen. A follow-up visit was arranged. 05/28/2024 Sleep apnea in adult (ICD-10 - G47.30) No change in her therapy was needed today. She denies daytime somnolence.She has not been using her CPAP due to some disruption in her home environment which is temporary. She plans to resume using it when she can. 05/28/2024 Depression, unspecified depression type (ICD-10 - F32.9) Her depression has been mild and she has been compliant with her medication. No change was necessary today. She is conducting all of the activities of daily life without impairment. She continues under the care of the mental health provider. She has a therapist, Becka. 05/28/2024 Gastroesophageal reflux disease without esophagitis (ICD-10 - K21.9) Her reflux symptoms are well controlled with omeprazole. She was continued on this medicine. 05/28/2024 Arteriovenous malformation (ICD-10 - Q27.30) The malformation was resected many years ago. 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 05/28/2024 Chronic cluster headache, intractable (ICD-10 - G44.021) We are going to refer her back to her neurologist for follow-up of the subarachnoid hemorrhage and the headaches to see if any novel agents can be employed. 05/28/2024 Panic attacks (ICD-1 0 - F41.0) She was referred back to mental health and I have given her a trial of fluoxetine. She will continue the alprazolam and other medications. 05/28/2024 Ataxia (ICD-10 - R27.0) Her ataxia has significantly improved but may have been a contributing factor to the fall. I have recommended she use a walker at all times 05/28/2024 Former smoker (ICD-1 0 - Z87.891) She has been free of tobacco for 6 weeks. We discussed smoking cessation techniques. We formed a strategy to prevent relapse in times of stress and illness. 05/28/2024 Ptosis, both eyelids (ICD-10 - H02.403) He is scheduled to have a bilateral blepharoplasty in the near future. I have examined her carefully and she is medically cleared for this procedure with the average minimal risk of a healthy patient. Plan Of Treatment Medication Medication Name Sig Start Date Stop Date Notes Escitalopram Oxalate 20 MG 1 tablet Orally Once a day Zolpidem Tartrate ER 12.5 MG 1 Tablet Orally At bed time ALPRAZolam 1 MG 1 tablet Orally thre e times a day Phenytoin Sodium Extended 10 0 mg TAKE 3 CAPSULES BY MOUTH EVERY 12 HOURS Nitroglycerin 0.4 MG 1 tablet under the tongue and allow to dissolve. Take every 5 minutes up to 3 times i Sublingual Three times a day Ketoconazole 2 % 1 application Internal Control Specialist ally Twice a day for 21 days Doxepin HCl 10 mg 1 Capsule Orally at bed time Propranolol HCl 10 mg 1 Tablet Orally Tw ice a day on an empty stomach Divalproex Sodium ER 500 mg 2 Tablet Orally twice a day Omeprazole 20 mg 1 Capsule Orally Yola ly 30 minutes before breakfast Zonisamide 100 mg TAKE 1 CAPSULE BY [facility] TWICE A DAY Magnesium Oxide -Mg Suppleme nt 400 (240 Mg) MG 1 tablet with food Orally Once a day Nitroglycerin 0.4 MG 1 tablet under the tongue and allow to dissolve. Take every 5 minutes up to 3 times if chest pain persists Sublingual Three times a day Naproxen 500 mg TAKE 1 TABLET BY SUZAN TH TWICE A DAY Pending Test Test Name Order Date MAMMOGRAM DIGITAL BILATERAL SCREEN 05/28 ECG 12 lead EKG 05/28/2024 Next Appt Details Follow Up: after testing and mammogram, 6 to 8 weeks from now, Reason: OV review x ray and mammogram, Rescheduled mammogram Provider Name:David Kimberly, 08/15/2024 10:30:00 AM, [address] [facility] [address], [place], [phone], Provider Name:David Kimberly, 01/21/2025 02:00:00 PM, [address] [facility] [address], [place], [phone], Progress Notes * Lisset VARELAOB: 8 (54 yo F)Acc No.[id number]:05/28/2024 Patient:?Sierra VARELA Provider:?David Harris MD :1970???Age:54 Y???Sex:Female D ate:05/28/2024 Address:[address] [place] [address], [id number] Subjective: * Chief Complaints: * ???Clearance for Bilateral u pper eyelid blepharoplasty and Bilateral upper eyelid ptosis repair on 06/08/2024Recent fall at home due to trippingLump on left thigh x 1 monthPainful right shoulderThe right foot * HPI: ???COVID-19 Screening:?Questions?Have you had any new onset fever, chills, cough, congestion, sore throat, shortness of breath, muscle aches??No ???:?The patient, a 54-year-old female, had a recent fall at home for the past three weeks. She has sustained multiple bruises and a lump on her left thigh, which appears to be a hematoma. She also has a swollen foot. The patient is scheduled for an eyelid lift surgery on June 08. She has been experiencing pain in her chest and her breast, which has been so severe that she has been unable to wear a bra. The patient also has a history of high cholesterol and is currently taking magnesium and phenytoin.? Her EKG is unremarkable except for minor ST-T wave changes.? Her blood work is unremarkable as well.? She was carefully examined today and a history was taken.? She is given medical clearance for bilateral blepharoplasty on June 08, 2024.? There is currently no contraindication. * ROS:?General/Constitutional:?pain?Left thigh, right shoulder, Right foot,?.?Chills?denies.?Fatigue?admits.?Fever?denies.?ENT:?Decreased hearing?denies.?Respiratory:?Cough?denies.?Cardiovascular:?Chest pain with exertion?denies.?Dyspnea on exertion?denies.?Shortness of breath?denies.?Gastrointestinal:?Constipation?occasional.?Decreased appetite?denies.?Diarrhea?denies.?Heartburn?denies.?Nausea?denies.?Rectal bleeding?denies.?Vomiting?denies.?Hematology:?bruising?denies.?petechiae?denies.?Swollen glands?none have been noted.?Genitourinary:?Frequent urination?at night.?Musculoskeletal:?Muscle aches?denies.?Painful joints?denies.?Sciatica?denies.?Weakness?denies.?Skin:?Itching?denies.?Rash?denies.?Skin lesion(s)?denies.?Neurologic:?Difficulty speaking?denies.?Dizziness?denies.?Headache?denies.?Low back pain?denies.?Psychiatric:?Depressed mood?denies.? * Medical History:? * Surgical History:?right occi pital craniotomy re: AVM malformation 05/1999LEEP procedure 1999endometrial biopsy, proliferative endometrium 2014colonoscopy tubal ligation No history * Hospitalization/Major Diagno stic Procedure:[facility], craniotomy for AVM 1999No history * Family History:?Father: rico e 92 yrs, Hypertension, diagnosed with HTN.?Mother: alive 85 yrs, Osteoporosis, osteoarthritis, adult onset diabetes, depression, diagnosed with DM, HTN.?Siblings: alive. 3 brother(s) , 5 sister(s) . 2 son(s) , 2 daughter(s) - healthy. .? A maternal grandmother is diabetic. One sister has rheumatoid arthritis and one sister has diabetes. She has 2 healthy sons and 2 healthy daughters. * Social History:?Tobacco Use:?Tobacco Control (Standard)?Tobacco use:?Former smoker ???She was born in [place], [place]. She has been to [place] for 20 years. She has 4 children and 7 grandchileren. * Medications:?TakingMagnesium Oxide -Mg Supplement 400 (240 Mg) MG [...] Hour 2 Tablet Orally twice a day Ketoconazole 2 % Cream [...] pain persists Sublingual Three times a day Zonisamide 100 mg Capsule TAKE 1 CAPSULE BY MOUTH TWICE A DAY Naproxen 500 mg Tablet TAKE 1 TABLET BY MOUTH TWICE A DAY Medication List reviewed and reconciled with the patientTaking Magnesium Oxide - Mg Supplement 400 (240 Mg) MG Tablet 1 [...] 2 Tablet Orally twice a day Taking Ketoconazole 2 % [...] persists Sublingual Three times a day Taking Zonisamide 100 mg Capsule TAKE 1 CAPSULE BY MOUTH TWICE A DAY Taking Naproxen 500 mg Tablet TAKE 1 TABLET BY MOUTH TWICE A DAY Medication List reviewed and reconciled with the patient * Allergies:?No Known Drug All ergyno[Allergies Verified] Objective: * Vitals:?Ht: 66, Wt: 195, BMI :31.47, BP: 140/68, HR: 80, Temp: 98.8, Wt-k.45. * Examination: ???General Examination: ?GENERAL APPEARANCE:?pleasant, well nourished, well developed, in no acute distress, calm and relaxed, obese, woman.?HEAD:?atraumatic, normocephalic.?EYES:?eomi, perrla, anicteric, conjugate,?.?EARS:?normal.?NOSE:?septum intact.?ORAL CAVITY:?normal, unremarkable.?NECK/THYROID:?no jugular venous distention, no carotid bruit, thyroid normal, Supple without pain.?LYMPH NODES:?no enlarged lymph nodes,spleen normal.?SKIN:?no suspicious lesions, anicteric.?HEART:?no clicks, gallops, murmurs, or rubs, regular rhythm, S1, S2 normal, no s3, or vascular bruits.?LUNGS:?clear to auscultation .?BREASTS:??no masses palpable bilaterally, Pain is localized to chest wall and right axilla.?ABDOMEN:?bowel sounds normal, no ascites, no organomegaly, no mass, centripital obesity.?RECTAL EXAM:?not examined.?MUSCULOSKELETAL:?1 medial left thigh is mild hamstring edema, skin intact, mild edema both feet, bruise right foot, scene painter range of motion right shoulder without bruising.?PERIPHERAL PULSES:?normal.?NEUROLOGIC:?alert and oriented, cranial nerves 2-12 grossly intact, deep tendon reflexes 2+ symmetrical, motor strength normal upper and lower extremities, sensory exam intact.?PSYCH:?alert, oriented.? Assessment: * Assessment: 1.?Nonintractable epilepsy d ue to external causes, without status epilepticus - G40.509 (Primary)???Notes :I have ordered a phenytoin level.? She says she has been compliant with her medication.? She states emphatically that the fall at home was because she tripped and was not due to a seizure.???2.?Pre-op evaluation - Z01.818???Notes :She is currently medically stable.? She is medically cleared for the bilateral blepharoplasty Her blood work and EKG are unremarkable.? The swelling over the right eyebrow should be resolved by June 08 she is medically cleared for surgery at that time.? The hands assembler should make a final decision about whether surgery should be done when he sees her at that time.?3.?Overweight (BMI 25.0-29.9) - E66.3???Notes :He has lost 7 pounds dropping from 202 down 295 pounds.? Her body mass index is 31.47.? We discussed her weight loss strategy in detail today.???4.?Acute pain of right shoulder - M25.511???Notes :She had a fall at home and had a laceration on her right eyebrow and severe pain in her right shoulder and right foot.? She went to the [facility] emergency and had x-rays that showed no fracture.? She will rest the joint use heat and ibuprofen.? A follow- up visit was arranged.???5.?Sleep apnea in adult - G47.30???Notes :No change in her therapy was needed today. She denies daytime somnolence.She has not been using her CPAP due to some disruption in her home environment which is temporary. She plans to resume using it when she can.???6.?Depression, unspecified depression type - F32.9???Notes :Her depression has been mild and she has been compliant with her medication. No change was necessary today. She is conducting all of the activities of daily life without impairment. She continues under the care of the mental health provider. She has a therapist, Becka.???7.?Gastroesophageal reflux disease without esophagitis - K21.9???Notes :Her reflux symptoms are well controlled with omeprazole. She was continued on this medicine.???8.?Arteriovenous malformation - Q27.30???Notes :The malformation was resected many years ago.???9.?AMOS III (cervical intraepithelial neoplasia grade III) with severe dysplasia - D06.9???Notes :She says that she is seeing the ep tech at the recommended intervals.???10.?Chronic cluster headache, intractable - G44.021???Notes :We are going to refer her back to her neurologist for follow-up of the subarachnoid hemorrhage and the headaches to see if any novel agents can be employed.???11.?Panic attacks - F41.0???Notes :She was referred back to mental health and I have given her a trial of fluoxetine. She will continue the alprazolam and other medications.???12.?Ataxia - R27.0???Notes :Her ataxia has significantly improved but may have been a contributing factor to the fall.? I have recommended she use a walker at all times???13.?Former smoker - Z87.891???Notes :She has been free of tobacco for 6 weeks. We discussed smoking cessation techniques. We formed a strategy to prevent relapse in times of stress and illness.???14.?Ptosis, both eyelids - H02.403???Notes :He is scheduled to have a bilateral blepharoplasty in the near future.? I have examined her carefully and she is medically cleared for this procedure? with the average minimal risk of a healthy patient.??? Plan: * Treatment: 2.?Pre-op evaluation?LAB: PROFILE, FASTING (COMPREHENSIVE METABOLIC) ?LAB: MAGNESIUM ?LAB: CBC w DIFF ?LAB: Lipid Panel (Collection Date & Time - 05/29/2024 10:33 AM) ? Value Reference Range ?Triglycerides 112 <150 - mg /dL * ?Cholesterol 181 <200 - mg/d L * ?LDL Cholesterol Calculated 107 H <100 - mg/dL * ?HDL Cholesterol 52 >40 - m g/dL ?LAB: Phenytoin Dilantin (Collection Date & Time - 05/29/2024 10:33 AM)* ? Value Reference Range ?Phenytoin Dilantin 25.9 HH 10.0 -20.0 - ug/mL ?Imaging: XR CHEST 2 VIEW PA & LAT ?Imaging: ECG 12 lead EKG3.?Overweight (BMI 25.0-29.9)?LAB: PROFILE, FASTING (COMPREHENSIVE METABOLIC) ?LAB: MAGNESIUM ?LAB: CBC w DIFF ?LAB: Lipid Panel (Collection Date & Time - 05/29/2024 10:33 AM)* ? Value Reference Range ?Triglycerides 112 <150 - mg /dL * ?Cholesterol 181 <200 - mg/d L * ?LDL Cholesterol Calculated 107 H <100 - mg/dL * ?HDL Cholesterol 52 >40 - m g/dL ?LAB: Phenytoin Dilantin (Collection Date & Time - 05/29/2024 10:33 AM)* ? Value Reference Range ?Phenytoin Dilantin 25.9 HH 10.0 -20.0 - ug/mL ?Imaging: XR CHEST 2 VIEW PA & LAT4.?Acute pain of right shoulder?LAB: PROFILE, FASTING (COMPREHENSIVE METABOLIC) ?LAB: MAGNESIUM ?LAB: CBC w DIFF ?LAB: Lipid Panel (Collection Date & Time - 05/29/2024 10:33 AM)* ? Value Reference Range ?Triglycerides 112 <150 - mg /dL * ?Cholesterol 181 <200 - mg/d L * ?LDL Cholesterol Calculated 107 H <100 - mg/dL * ?HDL Cholesterol 52 >40 - m g/dL ?LAB: Phenytoin Dilantin (Collection Date & Time - 05/29/2024 10:33 AM)* ? Value Reference Range ?Phenytoin Dilantin 25.9 HH 10.0 -20.0 - ug/mL ?Imaging: XR CHEST 2 VIEW PA & LAT ?Imaging: XR SHOULDER RT 2 VIEWS5.?Others? Continue Zonisamide Capsule, 100 mg, TAKE 1 CAPSULE BY MOUTH TWICE A DAY;?Continue Naproxen Tablet, 500 mg, TAKE 1 TABLET BY MOUTH TWICE A DAY;?Continue Nitroglycerin Tablet Sublingual, 0.4MG, 1 tablet under the tongue and allow to dissolve. Take every 5 minutes up to 3 times if chest pain persists, Sublingual, Three times a day;?Continue Magnesium Oxide -Mg Supplement Tablet, 400(240 Mg) MG, 1 tablet with food, Orally, Once a day;?Continue Doxepin HCl Capsule, 10 mg, 1 Capsule, Orally, at bed time;?Continue Propranolol HCl Tablet, 10 mg, 1 Tablet, Orally, Twice a day on an empty stomach;?Continue Omeprazole Capsule Delayed Release, 20 mg, 1 Capsule, Orally, Daily 30 minutes before breakfast;?Continue Divalproex Sodium ER Tablet Extended Release 24 Hour, 500 mg, 2 Tablet, Orally, twice a day;?Continue Ketoconazole Cream, 2 %, 1 application, Externally, Twice a day for 21 days;?Continue ALPRAZolam Tablet, 1 MG, 1 tablet, Orally, three times a day;?Continue Zolpidem Tartrate ER Tablet Extended Release, 12.5 MG, 1 Tablet, Orally, At bed time As needed;?Continue Escitalopram Oxalate Tablet, 20 MG, 1 tablet, Orally, Once a day; Continue Phenytoin Sodium Extended Capsule, 100 mg, TAKE 3 CAPSULES BY MOUTH EVERY 12 HOURS. ? * Imaging:? * ?Imaging: MAMMOGRAM DIGI SALTY BILATERAL SCREEN * Procedure Codes:? * Preventive Medicine:? ??Counseling:?Care [...] not done * Follow Up:?after testing and mammogram, 6 to 8 weeks from now (Reason: OV review x ray and mammogram, Rescheduled mammogram) * Images: * Sign off status: Completed true * Provider:?David Harris MD Date:?05/01 Generated for Sarah romo/Kay/Negritoitting on:?08/01/2024 09:02 AM EST History and Physical Notes * [...] and relaxed, obese, woman HEAD: atraumatic, normocep halic EYES: eomi, perrla, anicte elizabeth, conjugate, EARS: normal NOSE: septum intact NECK/THYROID: no jugular venous di stention, no carotid bruit, thyroid normal, Supple without pain HEART: no clicks, gallops, murmurs, or rubs, [...] PULSES: normal BREASTS: no masses palpable b ilaterally, Pain is localized to chest wall and right axilla MUSCULOSKELETAL: 1 medial left thigh is mild hamstring edema, skin intact, mild edema both feet, bruise right foot, scene painter range of motion right shoulder without bruising LYMPH NODES: no enlarged lymph no juancarlos,spleen normal RECTAL EXAM: not examined PSYCH: alert, oriented ORAL CAVITY: normal, unremarkable
--- OUTSIDE RECORDS SUMMARY | 2024-08-01 09:03 | XMS_ITS | Encounter Summary ---
Author Organization [facility] Address [address] [place] [address] Care Team Providers Care Audit Senior Associate Name Role Phone Felicity Diaz MD Primary Care Provider Unav ailable David Harris MD Primary Care Provider Anita trinidad Reason for Visit * Reason Comments E-prescribe Rx Request Encounter Details Date Type Department Care Team Description 09/29/2021 Refill Dermatology - [address] [id number] Kwabena Toney PA-C E-prescribe Rx Request Social History Tobacco Use Types Packs/Day Years Used Date Smoking Tobacco: Never Assessed Sex Assigned at Date Recorded Not on file documented as of this encounter Plan of Treatment Not on file documented as of this encounter Visit Diagnoses Not on filedocumented in this encounter Care Teams Audit Senior Associate Relationship Specialty Start Date End Date Felicity Diaz MD PCP - General Internal Medicine 07/07/17 07/05/23 David Harris MD PCP - General Oncology/Hematology 07/06/23 documented as of this encounter
--- OUTSIDE RECORDS SUMMARY | 2024-08-01 09:03 | XMS_ITS | Encounter Summary ---
Author Organization [facility] Address [address] [place] [address] Care Team Providers Care Scallop Shucker Name Role Phone Felicity Diaz MD Primary Care Provider David Sommer MD Primary Care Provider Anita trinidad Reason for Visit * Reason Comments E-prescribe Rx Request Encounter Details Date Type Department Care Team Description 03/27/2021 Refill Dermatology - [address] [id number] Kwabena Toney PA-C E-prescribe Rx Request Social History Tobacco Use Types Packs/Day Years Used Date Smoking Tobacco: Never Assessed Sex Assigned at Date Recorded Not on file documented as of this encounter Miscellaneous Notes * Telephone Encounter - Patti Matthew - 04/01/2021 3:41 PM EDT I called the pharmacy and they will notify the patient. * Telephone Encounter - Kwabena Toney PA-C - 03/30/2021 12:21 PM EDT Please inform this patient that she will need to contact her primary care physician to have this medication refilled ..... thanks * Telephone Encounter - Sayda Phillips M.A. - 03/30/2021 11:01 AM EDT Last refill 10/18/17 Last ov 12/27/17 Next ov,no upcoming appointment scheduled Please review, thanks documented in this encounter Plan of Treatment Not on file documented as of this encounter Visit Diagnoses Not on filedocumented in this encounter Care Teams Scallop Shucker Relationship Specialty Start Date End Date Felicity Diaz MD PCP - General Internal Medicine 07/07/17 07/05/23 David Harris MD PCP - General Oncology/Hematology 07/06/23 documented as of this encounter
--- OUTSIDE RECORDS SUMMARY | 2024-08-01 09:03 | XMS_ITS | Clinical Summary ---
Author Organization [facility] Address [address] [place] [address] Care Team Providers Care Public Health Aides Teacher Name Role Phone David Harris MD Primary Care Provider Anita lable Allergies No known active allergies Medications Medication Sig Dispensed Refills Start Date End Date Status Omeprazole 20 MG Tab EC Take by mouth. 0 Active divalproex (DEPAKOTE) 250 MG EC tablet Take 250 mg by mouth 3 times daily. 0 Active phenytoin (DILANTIN) 100 MG ER capsule Take by mouth 3 times daily. 0 Active divalproex (DEPAKOTE) 500 MG EC tablet Take 500 mg by mouth 3 times daily. 0 Active Riboflavin (VITAMIN B-2) 100 MG Tab Take by mouth. 0 Activ e zonisamide (ZONEGRAN) 25 MG capsule Take 25 mg by mouth daily. 0 Active polyvinyl alcohol (LIQUIFILM TEARS) 1.4 % ophthalmic solution 1 Drop as needed. 0 Active nitroGLYCERIN (NITROSTAT) 0.[address] 0.4 mg under the tongue every 5 minutes as needed. 0 Active alprazolam (XANAX) 1 MG tablet Take 1 mg by mouth 3 times daily as needed. 0 Active doxycycline (VIBRA-TABS) 100 MG tablet Take 100 mg by mouth 2 times daily. 0 Active cetirizine (ZYRTEC) 10 MG tablet TAKE 1 TABLET BY MOUTH EVERY EVENING 30 tablet 11 12/19/2020 Active Calmoseptine 0.44-20.6 % Ointment APPLY ONCE EXTERNALLY DIRECTED FOUR TIMES A DAY 113 g 5 02/03/2021 Active doxepin (SINEQUAN) 10 MG capsule Take 1 Capsule by mouth at bedtime. 0 Active escitalopram (LEXAPRO) 10 MG tablet Take 1 Tablet by mouth daily. 0 Active fluoxetine (PROZAC) 20 MG capsule Take 1 Capsule by mouth daily. 0 Active ibuprofen (ADVIL,MOTRIN) 600 MG tablet Take 1 Tablet by mouth every 6 hours as needed. 0 Active magnesium oxide (MAG-OX) 400 MG tablet Take 1 Tablet by mouth daily. 0 Active cyclobenzaprine (FLEXERIL) 10 MG tablet Take 1 Tablet by mouth 3 times daily as needed. 0 Active naproxen (NAPROSYN) 500 MG tablet Take 1 Tablet by mouth 2 times daily (with meals). 0 Active propranolol (INDERAL) 10 MG tablet Take 1 Tablet by mouth 3 times daily. 0 Active alprazolam (XANAX) 1 MG tablet 1 tablet Orally Twice a day 0 Active cetirizine (ZYRTEC) 10 MG tablet 1 tablet Orally Once a day 0 Active cyanocobalamin 100 MCG tablet as directed Orally 0 Active divalproex (DEPAKOTE) 250 MG 24 hr tablet TAKE 1 TABLET BY MOUTH EVERY MORNING 0 Active divalproex (DEPAKOTE) 500 MG 24 hr tablet Take 1 Tablet by mouth 2 Times Daily. 0 Active Doxycycline Monohydrate (ADOXA) 100 MG tablet TAKE 1 TABLET BY MOUTH TWICE A DAY TAKE EACH DOSE WITH NON DAIRY FOOD 0 Active fluoxetine (PROZAC) 20 MG capsule 1 Capsule. 0 Active ketoconazole (NIZORAL) 2 % cream 1 APPLICATION EXTERNALLY TWICE A DAY 21 DAYS 0 Active magnesium oxide (MAG-OX) 400 MG tablet 1 tablet as needed Orally Twice a day 0 Active naproxen (NAPROSYN) 500 MG tablet Take 1 Tablet by mouth 2 Times Daily. 0 Active omeprazole (PRILOSEC) 20 MG capsule TAKE 1 CAPSULE BY MOUTH DAILY AT LEAST 30 MINUTES BEFORE BREAKFAST 0 Active predniSONE (DELTASONE) 10 MG tablet 1 tablet Orally Once a day 0 07/04/2023 Active triamcinolone (KENALOG) 0.1 % cream APPLY TO AFFECTED AREA(S) THREE TIMES A DAY FOR 14 DAYS 0 Active zolpidem (AMBIEN CR) 12.5 MG CR tablet 1 tablet at bedtime as needed Orally Once a day 0 Active zonisamide (ZONEGRAN) 100 MG capsule TAKE 1 CAPSULE BY MOUTH TWICE A DAY 0 Active zonisamide (ZONEGRAN) 25 MG capsule 2 capsules Orally Twice a day 0 Active Diclofenac Sodium 1 % Gel Apply 4 g topically 2 times daily. 100 g 2 09/26/2023 Active silver sulfADIAZINE (SILVADENE) 1 % cream Apply topically to nail bed daily 50 g 0 01/26/2024 Active Diclofenac Sodium 1 % Gel Apply 4 g topically 2 times daily. 100 g 2 03/07/2024 Active Active Problems No known active problems Social History Tobacco Use Types Packs/Day Years Used Date Smoking Tobacco: Never Assessed Sex Assigned at Date Recorded Not on file Last Filed Vital Signs Vital Sign Reading Time Taken Comments Blood Pressure 92/50 12/27/2017 1:23 PM EDT Pulse 72 12/27/2017 1:23 PM EDT Temperature - - Respiratory Rate - - Oxygen Saturation - - Inhaled Oxygen Concentration - - Weight 95.7 kg (211 lb) 03/28/2024 9:04 AM EDT Height 167.6 cm (5' 6 ) 03/28/2024 9:04 AM EDT Body Mass Index 34.06 03/28/2024 9:04 AM EDT Plan of Treatment Health Maintenance Due Date Last Done Comments Covid-19 Vaccine (#1) 1970 HEPATITIS C SCREENING 1986 TOBACCO CHECK/ADVISE 1986 DTAP/TDAP/TD (1 - Tdap) 1987 CHOLESTEROL SCREENING 1988 CERVICAL CANCER SCREENING 1989 BASELINE HEALTH EXAM 40-64 2008 MAMMOGRAM 2008 COLON CANCER SCREENING 2018 SHINGLES VACCINE (1 of 2) 2018 INFLUENZA (#1) 2024 BMI CHECK/ADVISE 05/30/2024 PNEUMOCOCCAL VACCINE FOR HIGH RISK PATIENTS (#1) 03/12 Care Teams Public Health Aides Teacher Relationship Specialty Start Date End Date David Harris MD PCP - General Oncology/Hematology 07/06/23
--- OUTSIDE RECORDS SUMMARY | 2024-08-01 09:03 | XMS_ITS ---
Author Organization David Harris III, MD Address [address] [place] [address] Care Team Providers Care Production Tool Engineer Name Role Phone David Harris Primary Care Provider REASON FOR VISIT Message Encounters Encounter Location Date Provider Diagnosis David Harris III, MD [address] [place] [address] [place] [address] 05/31/2024 David Harris Plan Of Treatment Next Appt Details Provider Name:David Harris, 08/15/2024 10:30:00 AM, [address] [place] [address] [place], [address], Provider Name:David Harris, 01/21/2025 02:00:00 PM, [address] [place] [address] [place], [address], Progress Notes * Lisset VARELAOB: 8 (54 yo F)Acc No.[id number]:05/31/2024 Patient:?Sierra VARELA :1970???Age:54 Y???Sex:Female Address:[address], [address] * true * Date:? Generated for Printi demetrius/Kay/eTransmitting on:?08/01/2024 09:03 AM EST
--- OUTSIDE RECORDS SUMMARY | 2024-08-01 09:03 | XMS_ITS | Encounter Summary ---
Author Organization [facility] Address [address] [place] [address] Care Team Providers Care Social Security Assessor Name Role Phone David Harris MD Primary Care Provider Anita trinidad Encounter Details Date Type Department Care Team Description 07/06/[address] [facility] Records [facility] [address] [facility] [address] [place] [phone] Titi Eduardo DPM [address] [facility] [address] [place] [id number] Social History Tobacco Use Types Packs/Day Years Used Date Smoking Tobacco: Never Assessed Sex Assigned at Date Recorded Not on file documented as of this encounter Plan of Treatment Not on file documented as of this encounter Visit Diagnoses Not on filedocumented in this encounter Care Teams Social Security Assessor Relationship Specialty Start Date End Date David Harris MD PCP - General Oncology/Hematology 07/06/23 documented as of this encounter
== END 2024-08-01 08:30 | disposition home or self-care (01) ==
LOC: HO.MAMMO 08:29
PROVIDERS: PCP Internal Medicine Medical Oncology; Visit Provider Internal Medicine Medical Oncology
DX: Z12.31 Encounter for screening mammogram for malignant neoplasm of breast (principal)
CPT/HCPCS: 77063; 77067

== ENCOUNTER → 2024-08-01 08:45 | Outpatient (BNV) | payer MEDICAID, SELFPAY | PROVIDERS: PCP Internal Medicine Medical Oncology; Visit Provider Internal Medicine | DX: Z12.31 Encounter for screening mammogram for malignant neoplasm of breast (principal) | CPT/HCPCS: 77063; 77067 ==

== ENCOUNTER 2024-09-21 10:19 | Outpatient (AMB) | payer MEDICAID, SELFPAY ==
--- NOTE | 2024-09-21 07:54 | A.OFFVIS_ITS ---
Intake Visit Reasons: LDCT Allergies No Known Allergies Allergy (Verified 05/08/24 09:22) HPI HPI LDCT: Details: Initial visit for this 54yo smoker with a 30+PYH. Patient started smoking at age 5 for 49 years at 1ppd. Max 1-2ppd. Now 4cig/day Was able to quit for 2 years then restarted. . Denies marijuana use. Denies second hand smoke exposure. Denies exposure to chemicals or substances like asbestos. . Denies known family history of lung cancer. Denies personal history of cancers. Denies chest CT in last year. . Denies recent travel outside the [place]. Denies recent respiratory illness or recent hospitalization for respiratory issues. Denies testing positive for COVID. Denies receiving COVID Vaccine. . Denies fever, chills, new/worsening cough, hemoptysis, hoarseness or dysphagia. Denies significant chest pain, significant dyspnea or unintentional weight loss. Patient Lung Cancer Screening Questionnaire reviewed with patient by provider. . Shared Decision Making Completed. Patient meets criteria. Discussed in detail with patient, the risk vs benefit of LDCT screening. Patient consents to proceed with scan. Discussed smoking cessation. PFSH Medical History (Updated 09/21/24 @ 10:33 by Hansa Lazo PA-C) History of aneurysm Nicotine dependence, cigarettes, uncomplicated Severe headache Depression Sleep apnea Arthritis GERD (gastroesophageal reflux disease) Seizures Anxiety Surgical History (Updated 09/21/24 @ 10:31 by Hansa Lazo PA-C) History of brain surgery History of tubal ligation Social History (Updated 09/21/24 @ 10:32 by Hansa Lazo PA-C) Alcohol intake: never Patient Tobacco Use Status: Current everyday Tobacco user Cigarettes Per Day: 4 Years Smoked: (onset 5yo, 1ppd x 49yrs, max 1-2ppd, now 4 cig/day - 30+PYH) Sexual orientation: Straight/Heterosexual Gender identity: Female Female Reproductive History Menstrual Age of Menarche: 9 Assessment & Plan Assessment & Plan (1) Nicotine dependence, cigarettes, uncomplicated: Comment: (onset 5yo, 1ppd x 49yrs, max 1-2ppd, now 4 cig/day - 30+PYH) Code(s): F17.210 - Nicotine dependence, cigarettes, uncomplicated Category: Medical Plan: - SDM visit completed today in office. - Patient meets criteria for LDCT for lung cancer screening purposes and is asymptomatic. - Smoking cessation counseling offered. Patients can always call [phone]. - Will arrange for a LDCT scan of the chest for screening purposes at [facility]. - Risks, benefits, and alternatives were discussed in detail and the patient agrees to proceed. - Risks discussed include but are not limited to: radiation exposure, anxiety during testing and while awaiting results, false negatives, false positives and possibility of additional intervention such as further imaging or surgical procedures for benign disease. - Benefits are obviously detection of lung cancer at an early stage which can lead to improved outcomes. - Discussed the importance of screening program compliance with adherence to yearly LDCT scan as scheduled - or sooner interval scans for personalized screening regimen. - Discussed follow up plan. Our office will send a letter discussing results and if needed set up phone call and office visit based on CT findings. - Patient educated on results categorization and the management decisions for suspicious findings potentially found on the screening LDCT scan. Any patient with a Lung RADS score of 3 or 4 will be reviewed by a multidisciplinary team at [facility] to form a plan of action in regards to scan findings. - If further work up is warranted for a suspicious lung finding this will be followed by the Lung Cancer Screening program in conjunction with the Thoracic Surgery Department at [facility]. - A copy of the office note and LDCT will be sent to the patient's PCP - as well as documentation on any associated further plans of care. - Incidental findings on LDCT are the PCP's responsibility. These findings are indicated with an S finding on the LDCT Assessment. A note discussing the findings will be sent to the PCP who is then responsible for further management. - All questions answered.? Coding Level of Care Code Lung Cancer Screening G0296 Diagnoses Nicotine dependence, cigarettes, uncomplicated F17.210
== END 2024-09-21 10:45 | disposition home or self-care (01) ==
LOC: HO.HPS 10:19
PROVIDERS: PCP Internal Medicine Medical Oncology; Referring Provider Internal Medicine Medical Oncology; Visit Provider Physician Assistant Medical
DX: F17.210 Nicotine dependence, cigarettes, uncomplicated (principal)
CPT/HCPCS: G0296

== ENCOUNTER 2024-09-21 10:34 | Outpatient (REF) | payer MEDICAID, SELFPAY ==
--- NOTE | ~2024-09-21 | CT_ITS ---
CLINICAL HISTORY: F17.210 - Nicotine dependence, cigarettes, uncomplicated CT lung cancer screening (LDCT) Comparison: None Technique: Axial CT images of the chest using low-dose technique. Referring provider counseled the patient on shared decision-making for LDCT screening. Additional counseling was provided on smoking cessation. Effective radiation dose total: DLP 39 mGycm, CTDIvol 1.3 mGy. Findings: Lung: Mild emphysema. Calcified granulomas. 4.5 mm nodule of the left upper lobe medially series 4, image 29. Coronary artery calcifications: None Limited upper abdomen: Unremarkable Other: None Impression: LungRADS 2 - Benign Appearance: Continue annual screening with low dose Chest CT in 12 months. ##L2# Category 1: Normal; continue annual screening Category 2: Benign appearance or behavior, continue annual screening Category 3: Probably benign, [address] recommended Category 4A: Suspicious, [address] recommended; may consider PET/CT Category 4B: Suspicious, Additional diagnostics and/or tissue sampling recommended Category 4X: Suspicious, Additional diagnostics and/or tissue sampling recommended Category 0: Recalls (incomplete screen due to Incomplete coverage, Noise, Respiratory motion, Expiration, Obscured by acute abnormality) This document has been electronically signed by: Praveena Potter MD on 09/21/2024 14:30:05
[2024-09-21 11:13] LABS: MANUAL DIFF FLAG NO
[2024-09-21 11:32] LABS: Basophils Percent Auto 0.5 % (0-2); Eosinophils Absolute Auto 0.2 X10*3/uL (0.0-0.4); Eosinophils Percent Auto 2.7 % (0-4); Hematocrit 34.1 % (37.0-47.0); Hemoglobin 11.4 g/dl (12.0-16.0); Imm Gran Abs Auto 0.02 X10*3/uL (0.00-0.03); Imm Gran Pct Auto 0.4 % (0.0-0.4); Lymphocytes Absolute Auto 1.9 X10*3/uL (1.2-4.9); Lymphocytes Percent Auto 33.9 % (20-40); Mean Corpuscular HGB Conc 33.4 g/dl (31.0-35.0); Mean Corpuscular Hemoglobin 33.2 pg (27.0-33.0); Mean Corpuscular Volume 99.4 fL (80.0-98.0); Mean Platelet Volume 10.3 fL (9.4-12.3); Monocytes Absolute Auto 0.4 X10*3/uL (0.1-1.2); Monocytes Percent Auto 7.8 % (2-11); Neutrophils Percent Auto 54.7 % (45-73); Platelet Count 152 X10*3/uL (160-400); Red Blood Count 3.43 X10*6/uL (4.20-5.50); Red Cell Distribution Width 14.2 % (11.0-16.0); White Blood Count 5.5 X10*3/uL (4.8-10.8)
[2024-09-21 11:58] LABS: Alanine Aminotransferase 8 U/L (0-31); Alkaline Phosphatase 68 U/L (39-117); Anion Gap 8 (12-20); Aspartate Amino Transferase 12 U/L (5-31); Bilirubin Total 0.3 mg/dL (0.0-1.0); Blood Urea Nitrogen 9 mg/dL (9-16); Carbon Dioxide 29 mmol/L (22-29); Chloride 107 mmol/L (96-108); Cholesterol 173 mg/dL (<200); Estimated Glomerular Filt Rate > 60; Glucose Fasting 101 mg/dL (60-99); HDL Cholesterol 45 mg/dL (>40); LDL Cholesterol Calculated 95 mg/dL (<100); Potassium 4.2 mmol/L (3.3-5.1); Sodium 140 mmol/L (135-145); Total Protein 6.3 g/dL (6.5-8.0); Triglycerides 165 mg/dL (<150)
[2024-09-21 12:14] LABS: Erythrocyte Sedimentation Rate 2 MM/HR (0-20)
== END 2024-09-21 10:35 | disposition home or self-care (01) ==
LOC: HO.CT 10:34
PROVIDERS: Absent Provider Internal Medicine Medical Oncology; PCP Internal Medicine Medical Oncology; Visit Provider Physician Assistant Medical
DX: Z12.2 Encounter for screening for malignant neoplasm of respiratory organs (principal); F17.210 Nicotine dependence, cigarettes, uncomplicated; K21.9 Gastro-esophageal reflux disease without esophagitis; E66.9 Obesity, unspecified
CPT/HCPCS: 36415; 71271; 80053; 80061; 85025; 85652; G0296

== ENCOUNTER → 2024-09-21 10:36 | Outpatient (BNV) | payer MEDICAID, SELFPAY | PROVIDERS: Absent Provider Internal Medicine Medical Oncology; PCP Internal Medicine Medical Oncology; Visit Provider Nuclear Medicine | DX: F17.210 Nicotine dependence, cigarettes, uncomplicated (principal) | CPT/HCPCS: 71271 ==

== ENCOUNTER 2025-01-17 08:08 | Outpatient (REF) | payer MEDICAID, SELFPAY ==
[2025-01-17 08:24] LABS: MANUAL DIFF FLAG NO
[2025-01-17 08:45] LABS: Hematocrit 35.4 % (37.0-47.0); Hemoglobin 11.8 g/dl (12.0-16.0); Imm Gran Abs Auto 0.03 X10*3/uL (0.00-0.03); Imm Gran Pct Auto 0.5 % (0.0-0.4); Lymphocytes Absolute Auto 2.1 X10*3/uL (1.2-4.9); Mean Corpuscular HGB Conc 33.3 g/dl (31.0-35.0); Mean Corpuscular Hemoglobin 32.8 pg (27.0-33.0); Mean Corpuscular Volume 98.3 fL (80.0-98.0); NRBC Abs Auto 0.000 X10*3/uL (0.0-0.012); NRBC Pct Auto 0.0 /100WBC (0.0-0.2); Platelet Count 196 X10*3/uL (160-400); Red Blood Count 3.60 X10*6/uL (4.20-5.50); White Blood Count 5.6 X10*3/uL (4.8-10.8)
[2025-01-17 09:07] LABS: Alanine Aminotransferase 13 U/L (0-31); Albumin Level 4.2 g/dL (3.5-5.0); Alkaline Phosphatase 93 U/L (39-117); Anion Gap 12 (12-20); Aspartate Amino Transferase 15 U/L (5-31); Blood Urea Nitrogen 9 mg/dL (9-16); Calcium 9.2 mg/dL (8.4-10.2); Carbon Dioxide 28 mmol/L (22-29); Chloride 111 mmol/L (96-108); Cholesterol 180 mg/dL (<200); Estimated Glomerular Filt Rate > 60; HDL Cholesterol 44 mg/dL (>40); Potassium 4.5 mmol/L (3.3-5.1); Sodium 146 mmol/L (135-145); Total Protein 6.5 g/dL (6.5-8.0); Triglycerides 131 mg/dL (<150)
== END 2025-01-17 08:09 | disposition home or self-care (01) ==
LOC: HO.LAB 08:08
PROVIDERS: PCP Internal Medicine Medical Oncology; Visit Provider Internal Medicine Medical Oncology
DX: E66.3 Overweight (principal); G40.509 Epileptic seizures related to external causes, not intractable, without status epilepticus; G47.30 Sleep apnea, unspecified
CPT/HCPCS: 36415; 80053; 80061; 80184; 85025